=== PATIENT | female | born 1960 | race Caucasian/White ===

== ENCOUNTER → 2016-11-21 | Outpatient (CLI) | payer MEDICARE ==
[2016-11-21 09:08] VITALS: BP 142/77; PULSE 70; RESP 16; TEMP 97.9; BMI 34.0
--- NOTE | 2016-11-22 11:16 | PN ---
DATE OF SERVICE: 11/21/2016 CHIEF COMPLAINT: Bariatric assessment. HISTORY OF PRESENT ILLNESS: Paula Mandel is a 55-year-old female who has a history of adjustable gastric band. At her height of 5 feet 4 inches, her ideal body weight is 144 pounds. Highest weight was 299 pounds. Today she comes in weighing 198 pounds. In fact, she has gained 13 pounds since her last assessment barely 3 weeks ago. She has maintained a 101-pound weight loss. Percent excess weight loss is 65%. Now she presents for further evaluation and management. PHYSICAL EXAM: VITAL SIGNS: 97.9, 70, 16, 142/77, 5 feet 4 inches, 198 pounds. Body mass index 34.1. GENERAL: Well-developed female no acute distress. ABDOMEN: Well-healed panniculectomy incision. Palpable adjustable gastric band port over the left upper quadrant without tenderness. MUSCULOSKELETAL: No clubbing, cyanosis. HEENT: No sclera icterus. Extraocular movements grossly intact. Moist buccal mucosa. Head is atraumatic, normocephalic. No nasal drainage. NECK: Supple without lymphadenopathy. No JV distention. CHEST: Non-labored respirations and equal bilateral excursions. CARDIOVASCULAR: Regular rate and rhythm. Palpable 2+ radial pulses. NEUROLOGIC: No focal or lateralizing signs. ASSESSMENT: 1. History of adjustable gastric band. 2. Morbid obesity due to excess calories. 3. Body mass index reduced from 51.4 down to 34. 4. Adjustable gastric band adjustment. PLAN: 1. Recommend proceeding with adjustment, as she has already gained 13 pounds in barely 3 weeks. 2. Also recommend decreased intake of milk or liquid calories. PROCEDURE: Adjustment of gastric band. DESCRIPTION: After verbal consent, the patient was laid supine. The port was palpated in the left upper quadrant. Skin was cleansed with ChloraPrep. 1 mL of 2% Xylocaine was used to anesthetize the skin. A 20-gauge Wang needle was used to access the adjustable gastric band port. 0.6 mL of normal saline was adjusted with the patient drinking water. A total of 5.6 mL of fluid is in her band. She was able to tolerate drinking water without severe obstructive symptoms. Recommended followup in approximately 3 to 4 weeks. [facility]
== END | disposition home or self-care (01) ==
LOC: BARWHC3 07:51
PROVIDERS: ATTEND Surgery Plastic and Reconstructive Surgery
DX: Z48.815 Encounter for surgical aftercare following surgery on the digestive system (principal); E66.01 Morbid (severe) obesity due to excess calories; Z68.34 Body mass index [BMI] 34.0-34.9, adult; Z98.84 Bariatric surgery status
CPT/HCPCS: 99212

== ENCOUNTER → 2016-12-12 | Outpatient (CLI) | payer MEDICARE ==
[2016-12-12 09:32] VITALS: BP 119/72; PULSE 61; RESP 20; TEMP 97.5; BMI 33.7
--- NOTE | 2016-12-15 18:17 | P.PN ---
Progress Note - Text DATE OF SERVICE: 12/12/2016 CHIEF COMPLAINT: Bariatric assessment. HISTORY OF PRESENT ILLNESS: Paula Mandel is a 56-year-old female who is actually status post panniculectomy from 09/18/2016. She is less than 3 months out. Separately, she has a history of adjustable gastric band placement over 10+ years ago. At her height of 5 feet 4 inches, her ideal body weight is 144 pounds. Her highest weight was 299 pounds. Today she comes in weighing 196 pounds. She has maintained a 103-pound weight loss. Percent excess loss is 66%. Since her last evaluation barely 2 going on 3 weeks ago, she has lost only 2 pounds. Body mass index reduced from 51.4 down to 33.8. Now she presents for further evaluation and management. She reports increased appetite in less than 2 hours as well. PHYSICAL EXAM: VITAL SIGNS: 97.5, 61, 20, 119/72; 5 feet 4 inches, 196 pounds. Body mass index of 33.8. ABDOMEN: Well-healed panniculectomy incision. No erythema along the left upper quadrant. Palpable port along the left abdomen. GENERAL: Well-developed female no acute distress. MUSCULOSKELETAL: No clubbing, cyanosis. HEENT: No sclera icterus. Extraocular movements grossly intact. Moist buccal mucosa. Head is atraumatic, normocephalic. No nasal drainage. NECK: Supple without lymphadenopathy. No JV distention. CHEST: Non-labored respirations and equal bilateral excursions. CARDIOVASCULAR: Regular rate and rhythm. Palpable 2+ radial pulses. NEUROLOGIC: No focal or lateralizing signs. ASSESSMENT: 1. Morbid obesity due to excess calories. 2. Body mass index reduced and 51.4 down to 33.8. 3. Overweight. 4. Adjustment of gastric band. 5. Dietary surveillance and counseling. PLAN: 1. Recommend adjustment. 2. Recommend goal protein intake of over 65 g daily. PROCEDURE: Adjustment of gastric band. DESCRIPTION: After verbal consent was obtained, the patient was placed supine. The port was palpated and the skin was cleansed using ChloraPrep. 1 mL of 1% lidocaine was used to anesthetize the skin. Using a 22-gauge non-coring Wang needle, 0.4 mL of normal saline was placed. She was able to drink water without moderate obstructive symptoms. Total fluid in her band is 6 mL. Recommend followup in approximately 3 to 4 weeks.
== END | disposition home or self-care (01) ==
LOC: BARWHC3 07:23
PROVIDERS: ATTEND Surgery Plastic and Reconstructive Surgery
DX: Z48.815 Encounter for surgical aftercare following surgery on the digestive system (principal); Z98.84 Bariatric surgery status; E66.01 Morbid (severe) obesity due to excess calories; Z68.33 Body mass index [BMI] 33.0-33.9, adult
CPT/HCPCS: 99212

== ENCOUNTER → 2017-02-12 | Outpatient (CLI) | payer MEDICARE ==
[2017-02-12 13:10] VITALS: BMI 34.9
[2017-02-12 13:16] VITALS: BP 139/98; PULSE 88; TEMP 98.2
[2017-02-12 14:30] LABS: Partial Thromboplastin Time 22.4 sec (22.0-30.0); Prothrombin Time 9.8 sec (9.0-12.0)
[2017-02-12 14:35] LABS: CH 30.2; CHCM 31.5; HCT 46.3 % (34.0-46.0); HDW 2.13; HGB 14.7 gm/dL (11.4-16.0); MCH 30.6 pg (25.0-35.0); MCHC 31.8 g/dL (31.0-37.0); MCV 96.3 fL (80.0-100.0); Mean Platelet Volume 7.3; RBC 4.81 m/uL (3.80-5.40); RDW 14.5 % (11.5-15.5); WBC 9.1 k/uL (3.8-10.6)
[2017-02-12 14:43] LABS: ALT 24 U/L (9-52); AST 22 U/L (14-36); Alkaline Phosphatase 96 U/L (38-126); Anion Gap 8 mmol/L; Blood Urea Nitrogen 17 mg/dL (7-17); Calcium 9.7 mg/dL (8.4-10.2); Carbon Dioxide 29 mmol/L (22-30); Chloride 105 mmol/L (98-107); Cholesterol 301 mg/dL (<200); Glucose 72 mg/dL (74-99); HDL Cholesterol 94 mg/dL (40-60); Iron 79 ug/dL (37-170); Non-African American GFR(MDRD) >60 (>60 ml/min/1.73 sqM); Phosphorous 4.4 mg/dL (2.5-4.5); Potassium 4.3 mmol/L (3.5-5.1); Sodium 142 mmol/L (137-145); Total Bilirubin 0.5 mg/dL (0.2-1.3); Total Protein 7.6 g/dL (6.3-8.2); Triglycerides 204 mg/dL (<150)
[2017-02-12 14:53] LABS: % Iron Saturation 23.4 % (20-50); Prealbumin 38 mg/dL (18-36); Total Iron Binding Capacity 337 ug/dL (265-497)
[2017-02-12 15:47] LABS: Vitamin B12 626 pg/mL (239-931)
[2017-02-12 19:04] LABS: Hemoglobin A1C 5.6 % (4.2-6.1)
[2017-02-19 12:48] LABS: Selenium 162 mcg/L (63-160)
--- NOTE | 2017-03-10 18:31 | P.PN ---
Progress Note - Text DATE OF SERVICE: 02/12/2017. CHIEF COMPLAINT: Follow-up adjustable gastric band. HISTORY OF PRESENT ILLNESS: Paula Mandel is a 56 -year-old female who initially had adjustable gastric band over 10+ years ago. She was initially successful losing upwards of 100 pounds and then she regained 150 pounds to 299 pounds for her 5 foot 4 inch frame. Her ideal body weight is 144 pounds. She is recently status post panniculectomy on 09/18/16 where more than 5 pounds of skin was removed. Her last evaluation was 2 months ago. Now she comes with moderate weight regain. At her height of 5 foot 4 inches, she comes in today weighing 203 pounds. She has gained 7 pounds in the past 2 months. Total weight loss is now 96 pounds. She has achieved, 62% excess weight loss. Body mass reduced is from 51.4 down to 34.9. She is still 59 pounds overweight. She comes in with moderate concern with her weight gain. She had her last adjustment about 2 months ago. She reports increased appetite. Now she presents for further evaluation and management. PAST MEDICAL HISTORY: 1. Morbid obesity. 2. Osteoarthritis. 3. Chronic back pain. 4. Deep venous thrombosis. 5. Asthma. 6. Narcolepsy. 7. Hypertension. 8. Panniculitis. PAST SURGICAL HISTORY: 1. Adjustable gastric band multiple revisions. 2. Hysterectomy. 3. Bladder suspension. 4. . 5. Upper endoscopy. 6. Panniculectomy. MEDICATIONS: 1. [place]. 2. Lactulose. ALLERGIES: Denies. SOCIAL HISTORY: She has now discontinued all tobacco use. FAMILY HISTORY: Morbid obesity. REVIEW OF SYSTEMS: CONSTITUTIONAL: Highest weight of 299 pounds. Her lowest weight of 172 pounds. She has gained 30 pounds in the past year. Percent excess weight loss is now 62%. She is 59 pounds overweight. She has maintained a 96 pound weight loss. Body mass index is reduced from 51.4 down to 34.9. Total BMI point reduction is 15.5. GASTROINTESTINAL: Has chronic constipation. No reports of gastroesophageal reflux disease at this time. MUSCULOSKELETAL: Has diffuse severe lower back pain including joint pain along the hips and knees. HEENT: Wears glasses. Denies dysphagia. ENDOCRINE: No reports of thyroid disorder or blood sugar glucose intolerance. RESPIRATORY: Denies any obstructive sleep apnea. No reports of pneumonia. CARDIOVASCULAR: Prior history of heart catheterization including prior history of chest pain. NEURO: No reports of headaches or seizure disorders. Does have chronic pain. PSYCH: No reports of depression. Denies any suicidal ideation. HEMATOLOGIC: Prior history of DVTs. PHYSICAL EXAM: VITAL SIGNS: 98.2, 88, 129/98, 16; 5 feet 4 inches, 203 pounds. Body mass index 34.9. ABDOMEN: Soft, nontender, nondistended. Well-healed incision from previous panniculectomy. Abdomen is flat. Port palpated along the left upper quadrant without cellulitis or infection. GENERAL: Well-developed, pleasant female in no acute distress. MUSCULOSKELETAL: No clubbing, cyanosis, or edema. pounds. HEENT: No sclera icterus. Extraocular movements grossly intact. Moist buccal mucosa. Head is atraumatic, normocephalic. No nasal drainage. NECK: Supple without lymphadenopathy. No JV distention. CHEST: Non-labored respirations and equal bilateral excursions. CARDIOVASCULAR: Regular rate and rhythm. Palpable 2+ radial pulses. NEUROLOGIC: No focal or lateralizing signs. ASSESSMENT: 1. Morbid obesity due to excess calories. 2. Body mass index reduced from 51.4 down to 34.9. 3. History of adjustable gastric band. 4. Panniculitis, resolved. 5. Status post massive weight loss of 96 pounds. 6. Osteoarthritis of the lower back and hips. 7. History of chronic pain syndrome 8. Weight regain following bariatric procedure. PLAN: 1. With her weight gain of 30 pounds over the last 8 months, I have discussed with her metabolic cause including troubles with her band or port can be evaluated. 2. Recommend a band adjustment. 3. As she can barely tolerate additional adjustments around 6 mL, then may investigate other options. 4. In the past she has had previous complications with her band including two revisions of the band itself separately from her port. 5. She does report history of gastroesophageal reflux disease for which will evaluate with an upper GI. PROCEDURE: Adjustment of gastric band. DESCRIPTION: After verbal consent, the patient was placed supine. Port was palpated in the left upper quadrant. The skin was cleansed with alcohol swab. 1 mL of 1% lidocaine was used to anesthetize the skin. 22-gauge non-core Wang needle was used to access the port. Initially 6 mL was supposed to be in the band, however 4 mL was identified. Findings consistent with either port malfunction. With findings of 2 mL fluid loss in the last 2 months this demonstrates her port malfunction. May benefit from port revision; however, given the previous intolerance of her band, she is evaluating for a revision to a Daniel-en-Y gastric bypass. Otherwise, recommend nutritional evaluation. ADDENDUM: Hematocrit was elevated at 46.3. Glucose was low at 72. Hemoglobin A1c was normal at 5.6. Prealbumin was high at 38, triglycerides, elevated at 204. Cholesterol elevated at 301, LDL elevated at 166, HDL elevated at 94. Vitamin D low at 15.6. Overall, no hypothyroidism identified, or significant protein malnutrition.
== END | disposition home or self-care (01) ==
LOC: BARWHC3 12:14
PROVIDERS: ATTEND Surgery Plastic and Reconstructive Surgery
DX: Z48.815 Encounter for surgical aftercare following surgery on the digestive system (principal); E66.01 Morbid (severe) obesity due to excess calories; Z68.34 Body mass index [BMI] 34.0-34.9, adult; E21.1 Secondary hyperparathyroidism, not elsewhere classified; E89.1 Postprocedural hypoinsulinemia; D50.8 Other iron deficiency anemias; E44.0 Moderate protein-calorie malnutrition; E55.9 Vitamin D deficiency, unspecified; K74.1 Hepatic sclerosis; N19 Unspecified kidney failure; K50.90 Crohn's disease, unspecified, without complications; Z98.84 Bariatric surgery status; Z79.899 Other long term (current) drug therapy; M47.896 Other spondylosis, lumbar region; M16.0 Bilateral primary osteoarthritis of hip; G89.4 Chronic pain syndrome; K21.9 Gastro-esophageal reflux disease without esophagitis
CPT/HCPCS: 84255; 84134; 84425; 80061; 80053; 82607; 82728; 83036; 82525; 82746; 83540; 83550; 83735; 84100; 84443; 84590; 84630; 85027; 85610; 85730; 82306; 83970; 36415; G0463; 99212

== ENCOUNTER → 2017-04-24 | Outpatient (CLI) | payer MEDICARE ==
[2017-04-24 09:52] VITALS: BP 126/76; PULSE 67; RESP 20; TEMP 97.1; BMI 37.4
--- NOTE | 2017-05-07 16:48 | P.PN ---
Progress Note - Text DATE OF SERVICE: 04/24/2017. CHIEF COMPLAINT: Follow-up adjustable gastric band. HISTORY OF PRESENT ILLNESS: Paula Mandel is a 56 -year-old female who initially had an adjustable gastric band over 10+ years ago. She's had initial success with her adjustable gastric band losing over 100+ pounds. She had gotten down to 150 pounds with the adjustable gastric band however she overshot and regained over 100+ pounds to 299 pounds. After careful intensive dietary surveillance and counseling, she was able to lose weight and get down to 178 pounds. At this point, she is unable to tolerate any further adjustments as she develops esophageal dysphagia. She is now regaining weight. She has been able to lose weight from 299 pounds down to 178 pounds. In the past 8+ months, she's now regained 40 pounds. Now she comes in with problems with her adjustable gastric band. Given the multiple revisions of her adjustable gastric band, she is seeking revisional surgery toward the gastric bypass. She has stopped smoking over one year ago. Her highest weight was 299 pounds for her 5 foot 4 inch frame. Her ideal body weight is 144 pounds. She has maintained 81 pound weight loss. Percent excess weight loss is 52%. She is 74 pounds overweight. Body mass index is reduced from 51.4 down to 37.4. PAST MEDICAL HISTORY: 1. Morbid obesity. 2. Osteoarthritis. 3. Chronic back pain. 4. Deep venous thrombosis. 5. Asthma. 6. Narcolepsy. 7. Hypertension. PAST SURGICAL HISTORY: 1. Adjustable gastric band multiple revisions. 2. Hysterectomy. 3. Bladder suspension. 4. . 5. Upper endoscopy. 6. Panniculectomy. MEDICATIONS: 1. [place]. ALLERGIES: Denies. SOCIAL HISTORY: She has now discontinued all tobacco use. FAMILY HISTORY: Morbid obesity. REVIEW OF SYSTEMS: CONSTITUTIONAL: Her highest weight was 299 pounds for her 5 foot 4 inch frame. Her ideal body weight is 144 pounds. She has maintained 81 pound weight loss. Percent excess weight loss is 52%. She is 74 pounds overweight. Body mass index is reduced from 51.4 down to 37.4. GASTROINTESTINAL: Has chronic constipation. Has gastroesophageal reflux disease. Has history of esophageal dysmotility with adjustable gastric band. MUSCULOSKELETAL: Has diffuse severe lower back pain including joint pain along the hips and knees. HEENT: Has hearing problems. No problems with vision. ENDOCRINE: No reports of thyroid disorder or blood sugar glucose intolerance. RESPIRATORY: Denies any obstructive sleep apnea. No reports of pneumonia. CARDIOVASCULAR: Prior history of heart catheterization including prior history of chest pain. NEURO: No reports of headaches or seizure disorders. Does have chronic pain. PSYCH: No reports of depression. Denies any suicidal ideation. HEMATOLOGIC: Prior history of DVTs. PHYSICAL EXAM: VITAL SIGNS: 5 feet 4 inches, 217 pounds. Body mass index 37.4. Vital Signs Temp 97.1 F L 04/24/17 09:08 Pulse 67 04/24/17 09:08 Resp 20 04/24/17 09:08 BP 126/76 04/24/17 09:08 Pulse Ox ABDOMEN: Soft, nontender, nondistended. GENERAL: Well-developed, pleasant female in no acute distress. MUSCULOSKELETAL: No clubbing, cyanosis, or edema. pounds. HEENT: No sclera icterus. Extraocular movements grossly intact. Moist buccal mucosa. Head is atraumatic, normocephalic. No nasal drainage. NECK: Supple without lymphadenopathy. No JV distention. CHEST: Non-labored respirations and equal bilateral excursions. CARDIOVASCULAR: Regular rate and rhythm. Palpable 2+ radial pulses. NEUROLOGIC: No focal or lateralizing signs. LABS: Hematocrit was elevated at 46.3. Glucose was low at 72. Hemoglobin A1c was normal at 5.6. Prealbumin was high at 38, triglycerides, elevated at 204. Cholesterol elevated at 301, LDL elevated at 166, HDL elevated at 94. Vitamin D low at 15.6. ASSESSMENT: 1. Morbid obesity due to excess calories. 2. Body mass index reduced from 51.4 down to 37.4. 3. History of adjustable gastric band. 4. Panniculitis, resolved. 5. Status post massive weight loss of 81 pounds. 6. Osteoarthritis of the lower back and hips. 7. History of chronic pain syndrome 8. Weight regain following bariatric procedure. 9. Complications from adjustable gastric band. 10. Vitamin D deficiency. PLAN: 1. Recommend adjustment of gastric band. 2. In the interim, recommend referral to bariatric dietitian on gastrectomy diets. 3. We had a long discussion regarding risks to a revision to a gastric bypass. She had stopped smoking which should improve her risk for leaks or complications. Separately, she's had a recent panniculectomy. 4. She is at increased risk for leaks including stricture as well as complications from her surgery as she's had more than 2-3 revisions of an adjustable gastric band now being revised to a gastric bypass. 5. Recommend at minimum 2 week high-protein low caloric diet. 6. To mitigate her risks of competition gastric bypass, recommend two-stage approach with regards to removal of adjustable gastric band. 7. Recommend start of multivitamins. PROCEDURE: Adjustment of gastric band. DESCRIPTION: After verbal consent, the patient was placed supine. Port was palpated in the left upper quadrant. The skin was cleansed with alcohol swab. 1 mL of 1% lidocaine was used to anesthetize the skin. 22-gauge non-core Wang needle was used to access the port. Initially 4 mL was supposed to be in the band, however 3.6 mL was identified. Findings consistent with port malfunction.
== END | disposition home or self-care (01) ==
LOC: BARWHC3 08:07
PROVIDERS: ATTEND Surgery Plastic and Reconstructive Surgery
DX: E66.01 Morbid (severe) obesity due to excess calories (principal); K95.09 Other complications of gastric band procedure; M47.816 Spondylosis without myelopathy or radiculopathy, lumbar region; M16.0 Bilateral primary osteoarthritis of hip; E55.9 Vitamin D deficiency, unspecified; I10 Essential (primary) hypertension; Z68.37 Body mass index [BMI] 37.0-37.9, adult; Z98.84 Bariatric surgery status; Z79.899 Other long term (current) drug therapy
CPT/HCPCS: 99211

== ENCOUNTER → 2017-05-12 | Outpatient (CLI) | payer MEDICARE ==
[2017-05-12 16:44] VITALS: BMI 39.6
== END | disposition home or self-care (01) ==
LOC: BARWHC3 07:49
PROVIDERS: ATTEND Surgery Plastic and Reconstructive Surgery
DX: E66.01 Morbid (severe) obesity due to excess calories (principal)
CPT/HCPCS: 97804

== ENCOUNTER → 2017-05-30 | Outpatient (CLI) | payer MEDICARE ==
[2017-05-30 14:57] LABS: CH 31.4; CHCM 32.9; HCT 45.3 % (34.0-46.0); HDW 2.25; HGB 15.4 gm/dL (11.4-16.0); MCH 32.5 pg (25.0-35.0); MCV 95.7 fL (80.0-100.0); RBC 4.74 m/uL (3.80-5.40); RDW 13.8 % (11.5-15.5); WBC 8.6 k/uL (3.8-10.6)
[2017-05-30 15:07] LABS: Potassium 4.8 mmol/L (3.5-5.1)
== END | disposition home or self-care (01) ==
LOC: LABPAT 14:08
PROVIDERS: ATTEND Anesthesiology
DX: Z01.812 Encounter for preprocedural laboratory examination (principal)
CPT/HCPCS: 80051; 85027

== ENCOUNTER → 2017-06-04 | Outpatient (CLI) | payer MEDICARE ==
[2017-06-04 15:26] LABS: Basophils # (A) 0.1 k/uL (0-0.2); Basophils % (A) 1 %; CH 31.7; CHCM 32.9; Eosinophils # (A) 0.3 k/uL (0-0.7); Eosinophils % (A) 3 %; HCT 50.5 % (34.0-46.0); HDW 2.28; Luc # (Auto) 0.21; Luc % (Auto) 2; Lymphocytes # (A) 2.5 k/uL (1.0-4.8); Lymphocytes % (A) 29 %; MCH 30.7 pg (25.0-35.0); MCHC 31.7 g/dL (31.0-37.0); MCV 96.7 fL (80.0-100.0); Mean Platelet Volume 8.9; Monocytes # (A) 0.4 k/uL (0-1.0); Monocytes % (A) 5 %; Neutrophils # (A) 5.1 k/uL (1.3-7.7); Neutrophils % (A) 59 %; RBC 5.22 m/uL (3.80-5.40); RDW 13.9 % (11.5-15.5); WBC 8.6 k/uL (3.8-10.6); WBC (Perox) 8.69
[2017-06-04 15:48] LABS: ALT 41 U/L (9-52); AST 29 U/L (14-36); Alkaline Phosphatase 105 U/L (38-126); Anion Gap 9 mmol/L; Blood Urea Nitrogen 20 mg/dL (7-17); Calcium 10.1 mg/dL (8.4-10.2); Carbon Dioxide 25 mmol/L (22-30); Chloride 106 mmol/L (98-107); Glucose 82 mg/dL (74-99); Non-African American GFR(MDRD) >60 (>60 ml/min/1.73 sqM); Potassium 4.4 mmol/L (3.5-5.1); Sodium 140 mmol/L (137-145); Total Bilirubin 0.4 mg/dL (0.2-1.3); Total Protein 7.8 g/dL (6.3-8.2)
== END | disposition home or self-care (01) ==
LOC: LABPAT 14:57
PROVIDERS: ATTEND Surgery Plastic and Reconstructive Surgery
DX: Z01.812 Encounter for preprocedural laboratory examination (principal)
CPT/HCPCS: 80053; 85025

== ENCOUNTER 2017-06-06 09:35 | Inpatient (IN) | payer MEDICARE ==
--- NOTE | 2017-06-06 08:12 | P.GSHP ---
History of Present Illness H&P Date: 06/06/17 CHIEF COMPLAINT: Complications from adjustable gastric band HISTORY OF PRESENT ILLNESS: Paula Mandel is a 56 -year-old female who initially had an adjustable gastric band over 10+ years ago. She's had initial success with her adjustable gastric band losing over 100+ pounds. She had gotten down to 150 pounds with the adjustable gastric band however regained over 100+ pounds to 299 pounds. After careful intensive dietary surveillance and counseling, she was able to lose weight and get down to 178 pounds. At this point, she is unable to tolerate any further adjustments as she develops esophageal dysphagia. She is now regaining weight. She has been able to lose weight from 299 pounds down to 178 pounds. In the past 10+ months, she's now regained 52 pounds. Now she comes in with problems with her adjustable gastric band. Given the multiple revisions of her adjustable gastric band, she is seeking revisional surgery toward the gastric bypass. She has stopped smoking over one year ago. Her highest weight was 299 pounds for her 5 foot 4 inch frame. Her ideal body weight is 144 pounds. She has maintained 69 pound weight loss. She is 62 pounds overweight. Body mass index is reduced from 51.4 down to 39.5. PAST MEDICAL HISTORY: 1. Morbid obesity. 2. Osteoarthritis. 3. Chronic back pain. 4. Deep venous thrombosis. 5. Asthma. 6. Narcolepsy. 7. Hypertension. PAST SURGICAL HISTORY: 1. Adjustable gastric band multiple revisions. 2. Hysterectomy. 3. Bladder suspension. 4. . 5. Upper endoscopy. 6. Panniculectomy. MEDICATIONS: 1. [place]. ALLERGIES: Denies. SOCIAL HISTORY: She has now discontinued all tobacco use. FAMILY HISTORY: Morbid obesity. REVIEW OF SYSTEMS: CONSTITUTIONAL: Her highest weight was 299 pounds for her 5 foot 4 inch frame. Her ideal body weight is 144 pounds. She has maintained 69 pound weight loss. She is 62 pounds overweight. Body mass index is reduced from 51.4 down to 39.5 GASTROINTESTINAL: Has chronic constipation. Has gastroesophageal reflux disease. Has history of esophageal dysmotility with adjustable gastric band. MUSCULOSKELETAL: Has diffuse severe lower back pain including joint pain along the hips and knees. HEENT: Has hearing problems. No problems with vision. ENDOCRINE: No reports of thyroid disorder or blood sugar glucose intolerance. RESPIRATORY: Denies any obstructive sleep apnea. No reports of pneumonia. CARDIOVASCULAR: Prior history of heart catheterization including prior history of chest pain. NEURO: No reports of headaches or seizure disorders. Does have chronic pain. PSYCH: No reports of depression. Denies any suicidal ideation. HEMATOLOGIC: Prior history of DVTs. PHYSICAL EXAM: VITAL SIGNS: 5 feet 4 inches, 230 pounds. Body mass index 39.5. ABDOMEN: Soft, nontender, nondistended. GENERAL: Well-developed, pleasant female in no acute distress. MUSCULOSKELETAL: No clubbing, cyanosis, or edema. pounds. HEENT: No sclera icterus. Extraocular movements grossly intact. Moist buccal mucosa. Head is atraumatic, normocephalic. No nasal drainage. NECK: Supple without lymphadenopathy. No JV distention. CHEST: Non-labored respirations and equal bilateral excursions. CARDIOVASCULAR: Regular rate and rhythm. Palpable 2+ radial pulses. NEUROLOGIC: No focal or lateralizing signs. ASSESSMENT: 1. Morbid obesity due to excess calories. 2. Body mass index reduced from 51.4 down to 39.5 3. History of adjustable gastric band. 4. Panniculitis, resolved. 5. Status post massive weight loss of 81 pounds. 6. Osteoarthritis of the lower back and hips. 7. History of chronic pain syndrome 8. Weight regain following bariatric procedure. 9. Complications from adjustable gastric band. 10. Vitamin D deficiency. PLAN: 1. Recommend removal of gastric band. 2. In the interim, recommend referral to bariatric dietitian on gastrectomy diets. 3. We had a long discussion regarding risks to a revision to a gastric bypass. She had stopped smoking which should improve her risk for leaks or complications. Separately, she's had a recent panniculectomy. 4. She is at increased risk for leaks including stricture as well as complications from her surgery as she's had more than 2-3 revisions of an adjustable gastric band now being revised to a gastric bypass. 5. Possibility of two-stage technique was carefully described pending intraoperative assessment. 6. DVT prophylaxis. 7. Antibiotic prophylaxis. Past Medical History Past Medical History: Asthma, Chest Pain / Angina, COPD, Deep Vein Thrombosis ( DVT), GERD/Reflux, Hearing Disorder / Deafness, Hyperlipidemia, Osteoarthritis ( OA), Pneumonia, Pulmonary Embolus (PE), Respiratory Disorder Additional Past Medical History / Comment(s): Chronic Bronchitis. NARCOLEPSY. "NERVE DAMAGE BACK DOWN TO KNEES, FALLS OCC," CHRONIC BACK PAIN. [place], MULTIPLE HX DVT, PE, TOGIAK bilaterally. severe constipation History of Any Multi-Drug Resistant Organisms: None Reported Past Surgical History: Bariatric Surgery, Bladder Surgery, Section, Cholecystectomy, Hysterectomy, Orthopedic Surgery Additional Past Surgical History / Comment(s): 09/18/16 Panniculectomy, repair incarcerated ventral hernia, adjustment lap band, port revision. Other surgical hx: 2007 Lap Band; ORIF RT Ankle- PLATE, SCREWS. Past Anesthesia/Blood Transfusion Reactions: No Reported Reaction Smoking Status: Former smoker - Past Family History Father History Unknown: Yes Family Medical History: Cancer Mother History Unknown: Yes Family Medical History: Cancer, Congestive Heart Failure (CHF), COPD Medications and Allergies Home Medications Medication Instructions Recorded Confirmed Type HYDROcodone/APAP 10-325MG [[place] 1 tab PO Q6H PRN 05/30/17 05/30/17 History 10-325] Allergies Allergy/AdvReac Type Severity Reaction Status Date / Time No Known Allergies Allergy Verified 05/30/17 14:11
[~2017-06-06 09:35] MED LIST: ACETAMINOPHEN IV (For NPO) 1,000 MG in EMPTY BAG 1 BAG IVPB ONE; AMPICILLIN-SULBACTAM 3 GM in SODIUM CHLORIDE 0.9% 100 ML IVPB ONE; CHLORHEXIDINE GLUCONATE 15 ML CUP MUCOUS MEM ONE; DEXAMETHASONE SOD PHOSPHATE 10 MG/ML 1 ML VIAL IV ONE; ENOXAPARIN 40 MG/0.4 ML SYRINGE SQ STA; LIDOCAINE 1% 20 ML VIAL (10MG/ML) FOR IV START INTRADERMA PRN; ONDANSETRON 4 MG/2 ML VIAL IVP ONE; PANTOPRAZOLE 40 MG/10 ML VIAL IV STA; SCOPOLAMINE 1.5MG/72HR PATCH TRANSDERM ONE; ceFAZolin 2 GM in SODIUM CHLORIDE 0.9% 100 ML IVPB ONE
[2017-06-06] MEDS ORDERED: LACTATED RINGERS 1,000 ML IV ONE ×2 (13:08→16:22)
[2017-06-06] MEDS: LACTATED RINGERS 1,000 ML IV SCH ×2 (15:04→15:06)
[2017-06-06] MEDS ORDERED: SUCCINYLCHOLINE CHLORIDE 100 MG/5 ML SYR IV ONE (15:06)
[2017-06-06] MEDS ORDERED: ROCURONIUM BROMIDE 10 MG/ML 10 ML VIAL IV ONE (15:06)
[2017-06-06] MEDS ORDERED: LIDOCAINE 1% INJ 10MG/ML (20 ML MDV) ONE (15:06)
[2017-06-06] MEDS ORDERED: MEPERIDINE 50 MG/ML SYRINGE ONE (15:06)
[2017-06-06] MEDS ORDERED: NEOSTIGMINE 1 MG/ML 10 ML VIAL ONE (15:06)
[2017-06-06] MEDS ORDERED: PROPOFOL 10 MG/ML 20 ML VIAL IV ONE (15:06)
[2017-06-06] MEDS ORDERED: MIDAZOLAM 2 MG/2 ML VIAL ONE (15:06)
[2017-06-06] MEDS ORDERED: GLYCOPYRROLATE 0.2 MG/ML 2 ML VIAL ONE (15:06)
[2017-06-06] MEDS ORDERED: ONDANSETRON 4 MG/2 ML VIAL ONE (15:06)
[2017-06-06] MEDS ORDERED: fentaNYL (PF) 50 MCG/ML 2 ML AMP ONE (15:06)
[2017-06-06] MEDS ORDERED: BUPIVACAINE (PF) 0.5% 30 ML VIAL SQ ONE ×2 (16:19)
[2017-06-06] MEDS ORDERED: NALOXONE 0.4 MG/ML 1 ML VIAL IV PRN (18:37)
[2017-06-06] MEDS ORDERED: HYDROcodone/APAP 15 ML SOLUTION PO PRN (18:37)
--- NOTE | 2017-06-06 18:37 | P.PCN ---
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 greater omentum to the anterior abdominal wall involving all quadrants and epigastrium including midline lower pelvis Procedure(s) Performed: Laparoscopic extensive lysis of adhesions over 2 hours greater omentum to anterior abdominal wall of the lower pelvis, midline, right upper quadrant, left upper quadrant and epigastrium; laparoscopic removal of adjustable gastric band and all components; intraoperative esophagogastroduodenoscopy Implants: Anesthesia: SIDNEY Surgeon: Stella Acosta Estimated Blood Loss (ml): 75 Pathology: none sent Condition: stable Disposition: floor Indications for Procedure: 1. Malignant severe peritoneal adhesions throughout the entire abdomen prohibiting Daniel-en-Y gastric bypass or robotic approach. 2. Extensive laparoscopic lysis of adhesions over 2 hours performed greater omentum to the anterior abdominal wall throughout all quadrants without enterotomies. 3. Gastritis identified without injury to the proximal stomach. 4. Dense scarring from adjustable gastric band to proximal stomach with hiatal hernia identified Operative Findings: Description of Procedure:
[2017-06-06] MEDS: HYDROmorphone 1 MG/ML 1 ML SYRINGE IVP PRN ×3 (19:08→23:10)
--- NOTE | 2017-06-06 20:42 | P.PN ---
Progress Note - Text Patient seen and evaluated. She is extremely tearful and upset as her surgery was curtailed by the extensive and severe adhesions prohibiting gastric bypass. Information was also described to the patient's daughter who demonstrated understanding. The patient also disclosed to the recovery room nurse that she was smoking. The patient is aware that smoking is as absolutely prohibited prior to her gastric bypass as well. Given the severity and extent of her adhesions, she will need 1 to 3 months for complete recovery given the severity of adhesions. I was at bedside for over 30+ minutes regarding care plan which was also previously described to the patient this morning of surgery including preoperatively as well.
[2017-06-06] MEDS ORDERED: ACETAMINOPHEN IV (For NPO) 1,000 MG in EMPTY BAG 1 BAG IVPB ONE (21:00)
[2017-06-06] MEDS: 0.9% NACL WITH KCL 20 MEQ/L 1,000 ML IV SCH (23:10)
[2017-06-07] MEDS: AMPICILLIN-SULBACTAM 3 GM in SODIUM CHLORIDE 0.9% 100 ML IVPB SCH ×2 (00:03→10:02)
[2017-06-07] MEDS: HYDROmorphone 1 MG/ML 1 ML SYRINGE IVP PRN ×2 (02:42→07:50)
[2017-06-07] MEDS: LACTATED RINGERS 1,000 ML IV SCH ×2 (02:45→06:27)
[2017-06-07 07:45] LABS: Basophils # (A) 0.1 k/uL (0-0.2); Basophils % (A) 1 %; CH 31.4; CHCM 32.2; Eosinophils # (A) 0.1 k/uL (0-0.7); Eosinophils % (A) 1 %; HCT 42.1 % (34.0-46.0); HDW 2.27; HGB 13.1 gm/dL (11.4-16.0); Luc % (Auto) 2; Lymphocytes % (A) 20 %; MCH 30.5 pg (25.0-35.0); MCV 98.2 fL (80.0-100.0); Mean Platelet Volume 8.8; Monocytes # (A) 0.7 k/uL (0-1.0); Monocytes % (A) 7 %; Neutrophils # (A) 6.9 k/uL (1.3-7.7); Neutrophils % (A) 68 %; RBC 4.29 m/uL (3.80-5.40); RDW 13.4 % (11.5-15.5); WBC 10.1 k/uL (3.8-10.6); WBC (Perox) 10.73
[2017-06-07] MEDS: SIMETHICONE 40 MG/0.6 ML DROPS 2,000 MG/30 ML BOTTLE PO SCH ×2 (08:09→10:08)
[2017-06-07] MEDS: HYOSCYAMINE ORAL DROPS 1.875 MG/15 ML BOTTLE PO SCH ×2 (08:09→10:06)
[2017-06-07] MEDS: 0.9% NACL WITH KCL 20 MEQ/L 1,000 ML IV SCH (08:09)
[2017-06-07 08:14] LABS: Anion Gap 5 mmol/L; Blood Urea Nitrogen 15 mg/dL (7-17); Calcium 8.7 mg/dL (8.4-10.2); Carbon Dioxide 26 mmol/L (22-30); Chloride 112 mmol/L (98-107); Magnesium 1.8 mg/dL (1.6-2.3); Non-African American GFR(MDRD) >60 (>60 ml/min/1.73 sqM); Phosphorous 3.2 mg/dL (2.5-4.5); Potassium 4.5 mmol/L (3.5-5.1); Sodium 143 mmol/L (137-145)
[2017-06-07] MEDS ORDERED: PANTOPRAZOLE 40 MG/10 ML VIAL IV SCH (09:00)
[2017-06-07] MEDS ORDERED: ENOXAPARIN 40 MG/0.4 ML SYRINGE SQ SCH (09:00)
[2017-06-07 11:10] VITALS: BP 98/53; PULSE 80; RESP 12; TEMP 98.4
--- NOTE | 2017-06-07 11:18 | P.PN ---
Progress Note - Text Patient seen and evaluated. No reports of abdominal pain. No reports of dysphagia. I had an extended conversation over 30 minutes regarding the findings of her surgery including severe adhesions. I have recommended continued high protein low caloric diet to sustain her weight loss. Patient had been tearful as she is experiencing personal stressors at home and she had restarted smoking. After addressing her concerns, patient felt much more secured and comfortable with care plan which includes reassessment in the bariatric office next week. Patient is agreeable with discharge today with follow-up at the bariatric center next week. Dressing to be discontinued in the office.
[2017-06-07 11:37] VITALS: BMI 37.3
--- NOTE | 2017-06-08 19:45 | P.PN ---
Subjective Principal diagnosis: Morbid obesity The patient is postoperative day #1 status post extensive lysis of adhesions over 2 hours. No reports of abdominal pain. No reports of dysphagia. She is ambulating without difficulty. Objective - Vital Signs Vital signs: Vital Signs Temp 98.4 F 06/07/17 07:00 Pulse 80 06/07/17 07:00 Resp 12 06/07/17 07:00 BP 98/53 06/07/17 07:00 Pulse Ox 93 L 06/07/17 07:00 Intake & Output 06/06/17 06/07/17 06/07/17 18:59 06:59 18:59 Intake Total 2100 850 Output Total 275 Balance 1825 850 Weight 98.475 kg Intake: IV 2100 750 Intake, IV Titration 100 Amount Ampicillin-Sulbactam 3 gm 100 In Sodium Chloride 0.9% 100 ml @ 100 mls/hr IVPB Q6HR [facility] Rx#:[id number] Output: Urine 200 Estimated Blood Loss 75 Other: Voiding Method Toilet - Exam GENERAL: Well developed and in no acute distress. HEENT: No sclera icterus. Extraocular movements grossly intact. Moist buccal mucosa. Head is atraumatic, normocephalic. Hears conversational speech. No nasal drainage. NECK: Supple without lymphadenopathy. CHEST: Non-labored respirations and equal bilateral excursions. CARDIOVASCULAR: Regular rate and rhythm. Palpable 2+ radial pulses. ABDOMEN: Soft, nontender. Nondistended. Incision clean dry and intact. OptiFoam dressing intact at the left upper quadrant. MUSCULOSKELETAL: No clubbing, cyanosis or edema. NEUROLOGIC: No focal or lateralizing signs. PSYCH: Appropriate affect. Alert and oriented to person, place and time. SKIN: Good skin turgor. Will perfused. - Labs CBC & Chem 7: 06/07/17 06:48 06/07/17 06:48 Labs: Abnormal Lab Results - Last 24 Hours (Table) 06/07/17 Range/Units 06:48 Chloride 112 H (98-107) mmol/L Assessment and Plan (1) Peritoneal adhesions Status: Acute (2) Morbid obesity due to excess calories Status: Acute (3) BMI 37.0-37.9, adult Status: Acute Plan: 1. I had an extended conversation over 30 minutes regarding the findings of her surgery including severe adhesions. 2. I have recommended continued high protein low caloric diet to sustain her weight loss. 3. Patient had been tearful as she is experiencing personal stressors at home and she had restarted smoking. After addressing her concerns, patient felt much more secured and comfortable with care plan which includes reassessment in the bariatric office next week. 4. Patient is agreeable with discharge today with follow-up at the bariatric center next week. 5. Dressing to be discontinued in the office.
--- NOTE | 2017-06-08 19:49 | P.DS ---
Providers Date of admission: 06/06/17 09:37 Expected date of discharge: 06/07/17 Attending physician: Stella Acosta Primary care physician: Stated None - Discharge Diagnosis(es) (1) BMI 37.0-37.9, adult Status: Acute (2) Morbid obesity due to excess calories Status: Acute (3) Peritoneal adhesions Status: Acute (4) Tobacco abuse Status: Acute (5) Complication of gastric band procedure Status: Acute (6) History of adjustable gastric banding Status: Chronic Hospital Course: The patient is a 56-year-old female who is status post extensive lysis of adhesions over 2 hours including band removal. She denies abdominal pain. She does port overall disappointment that she had been unable to get a gastric bypass. Postoperatively, she was tolerating diet and ambulating. Pertinent Studies: None. Procedures: 1. Laparoscopic lysis of adhesions over 2+ hours. 2. Laparoscopic removal of adjustable gastric band and all components. 3. Intraoperative esophagogastroduodenoscopy. Patient Condition at Discharge: Good Plan - Discharge Summary New Discharge Prescriptions: New HYDROcodone/APAP 10-325MG [[place] 10] 1 each PO Q6H PRN #15 tab PRN Reason: Pain No Action HYDROcodone/APAP 10-325MG [[place] 10-325] 1 tab PO Q6H PRN PRN Reason: Pain Discharge Medication List HYDROcodone/APAP 10-325MG [[place] 10-325] 1 tab PO Q6H PRN 05/30/17 [History] HYDROcodone/APAP 10-325MG [[place] 10] 1 each PO Q6H PRN #15 tab 06/07/17 [Rx] Follow up Appointment(s)/Referral(s): Stella Acosta MD [STAFF PHYSICIAN] - 06/11/17 2:00 pm (Bariatric Center) Patient Instructions/Handouts: Exploratory Laparoscopy (DC), Lysis of Abdominal Adhesions (DC) Activity/Diet/Wound Care/Special Instructions: Do not remove abdominal dressing. May use hand claw to take a bath. No bath tub soaks. Take protein shakes 2-3 times a day. May have eggs, beings, cottage cheese, cheese, please limit bread, pasta, potatoes as this will cause weight gain. Discharge Disposition: HOME SELF-CARE
--- NOTE | 2017-06-08 23:26 | P.OP ---
Date of Procedure: 06/06/17 Preoperative Diagnosis: Postoperative Diagnosis: Procedure(s) Performed: Implants: Indications for Procedure: Operative Findings: Description of Procedure: SURGEON: BITA NAPIER MD PILE DRIVING SUPERINTENDENT: NATIVIDAD LARIOS PREOPERATIVE DIAGNOSES: 1. Morbid obesity. 2. Body mass index of 37.3. 3. Complications of adjustable gastric band. 4. Chronic pain syndrome. 5. History of tobacco abuse. 6. Hypertension. 7. Osteoarthritis of the lower back. 8. Esophageal dysphagia. POSTOPERATIVE DIAGNOSES: 1. Morbid obesity. 2. Body mass index of 37.3. 3. Complications of adjustable gastric band. 4. Chronic pain syndrome. 5. History of tobacco abuse. 6. Hypertension. 7. Osteoarthritis of the lower back. 8. Esophageal dysphagia. 9. Gastritis 10. 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 Hiatal hernia. 12. Previous history of open cholecystectomy. 13. Previous history of multiple C-sections hysterectomy. 14. Previous history of multiple revision of adjustable gastric band. OPERATION: 1. Diagnostic laparoscopy. 2. Laparoscopic extensive lysis of adhesions over 2 hours greater omentum to anterior abdominal wall of the lower pelvis, midline, right upper quadrant, left upper quadrant and epigastrium 3. Laparoscopic removal of adjustable gastric band and all components 4. Intraoperative esophagogastroduodenoscopy 5. Attempted gastric bypass. ANESTHESIA: General with local anesthetic. ESTIMATED BLOOD LOSS: 75 mL. SPECIMENS REMOVED: None. COMPLICATIONS: None. INDICATIONS: The patient is a 56-year-old female who presents with multiple adjustable gastric band revisions. She could not tolerate any further adjustments. Diagnostic studies are consistent with severe esophageal dysphagia secondary to adjustable gastric band. Now she presents for surgical intervention. She elected for adjustable gastric band removal. Alternatively, as she has chronic morbid obesity ,she elected for additional bariatric procedures. She elected for surgical intervention, particularly Daniel-en-Y gastric bypass. Given her complicated past surgical history, attempted Daniel-en-Y gastric bypass was discussed. Separately, possibility for curtailing her procedure was also discussed given a prior history of multiple band revisions.. Benefits and risks were described. Informed consent was obtained. Please note a second-generation bariatric consent form was reviewed in detail including increased risk for leak as well as stricture. Robotic approach was discussed. DESCRIPTION OF PROCEDURE: The patient had received Peridex oral solution including Lovenox preoperatively. She was brought to the operating room and transferred onto a bed. After general induction, the patient was prepped and draped in the standard sterile fashion including placement of Helton catheter. A timeout protocol was confirmed with surgical team regarding the patient's name including procedure to be performed. The da Jose robot Si was prepped and primed. With her prior history of panniculectomy, a left upper quadrant incision was proposed. Using 0 degree 5 mm laparoscopic trocar entry, the peritoneal cavity was entered after anesthetizing the skin. Diagnostic laparoscopy demonstrated moderate to severe adhesions along the right upper quadrant, epigastrium including ower midline and bilateal lower abdomen. Next, a small window was identified along the left upper quadrant whereby a separate 12 mm trocar was placed along the left costal margin at the anterior axillary line. Next a Kittner was used to gently sweep away the adhesions that were found along the epigastrium. Once the adhesions along the epigastrium were carefully taken down including a combination of sharp dissection using Sonicision, a 12 mm port was placed along the epigastrium just inferior to the xiphoid process 15 cm off to the left of the midline. Next using again a blunt dissection and Kittner, the rest of the omentum which was adherent onto the abdominal wall was gently swept away from the midline and pelvis. A 12 mm trocar was placed along the right upper quadrant. Extensive laparoscopic lysis of adhesions over 2 hours was performed. Given the severity of her malignant peritoneal adhesions, the gastric bypass was abandoned. Attention is now brought to removal of her adjustable gastric band. The port was palpated at the lateral left costal margin and the band was found underneath the liver. A 15 mm port was placed along the left anterior axillary line. The patient was placed in steep reverse Trendelenburg position. The port was followed with its tubing to the actual band. The gastrohepatic ligament was actually scarred from her prior surgery. Using electro-Bovie cautery, the cicatrix of the port was incised. The band was then freed. The band was unbuckled and cut. The tubing was cut approximately 5 cm distal to the actual adapter. The band was removed in total without injury to the stomach. Hemostasis was excellent. The port was removed from the abdominal cavity via the 15 mm port. Next, attention was brought to the abdominal wall where the lap band port was palpated. The left upper quadrant incision incision was sent electrically over the prominence of the port using a #11 blade. Skin was localized with anesthetic. Electro-Bovie cautery was used to enter the capsule around the port. The sutures were cut and the port was removed in total along with the tubing. Diagnostic laparoscopy demonstrated complete removal of all foreign body. I then went to the head of the bed to perform intraoperative esophagogastroduodenoscopy to evaluate for gastritis and any full thickness injury to the stomach. An Olympus gastroscope was passed from the posterior oropharynx down to the esophagus, where the squamocolumnar junction was found LA grade B erosive esophagitis, chronic changes. The stomach was entered and bile reflux was found as aspirated. Chronic gastritis was found along the antrum without gastric ulcers or duodenitis or duodenal ulcers. Retroflexion of the scope confirmed a Hill grade 4 lower esophageal valve. No full-thickness erosion from the prior band was encountered. No blood was found within the stomach. Mild gastritis with identified. The stomach was desufflated. The patient tolerated the procedure well. Again, no evidence of leak was encountered from the removal of the band. Along the left upper quadrant 15 mm port site, Sanket Albert 0 Vicryl sutures were used to close the fascia. I then went back to the patient's bedside after re-scrubbing. All instruments and pneumoperitoneum were evacuated from the abdominal cavity. The port extraction site was hemostatic. The port site was irrigated using normal saline and hydrogen peroxide approximately, 50 mL. The skin was closed in layers using 0-Vicryl for the deep dermis and subcutaneous tissue. The rest of the incisions were reapproximated using 4-0 Monocryl in a subcuticular interrupted fashion. Optifoam dressing was placed over the port extraction site and along the left upper quadrant to decrease risk for surgical site infection. A 4 x 4 gauze packing was placed. At the end of the procedure, needle, sponge and instrument count was verified correct by the operating room surgical technician. The patient had tolerated the procedure well. The patient was transferred to Postanesthesia Care Unit in stable condition. FINDINGS: 1. Malignant severe peritoneal adhesions throughout the entire abdomen prohibiting Daniel-en-Y gastric bypass or robotic approach. 2. Extensive laparoscopic lysis of adhesions over 2 hours performed greater omentum to the anterior abdominal wall throughout all quadrants without enterotomies. 3. Gastritis identified without injury to the proximal stomach. 4. Dense scarring from adjustable gastric band to proximal stomach with hiatal hernia identified
== END 2017-06-07 12:45 | disposition home or self-care (01) | DRG 337 ==
LOC: 2ORWHC 09:37 → 3SUR 18:32
PROVIDERS: ADMIT Surgery Plastic and Reconstructive Surgery; ATTEND Surgery Plastic and Reconstructive Surgery
PROC: 0DP64CZ Removal of Extraluminal Device from Stomach, Percutaneous Endoscopic Approach (ICD-10-PCS; principal; 2017-06-06 11:35)
PROC: 0DJ08ZZ Inspection of Upper Intestinal Tract, Via Natural or Artificial Opening Endoscopic (ICD-10-PCS; principal; 2017-06-06 11:35)
PROC: 0DNS4ZZ (ICD-10-PCS; principal; 2017-06-06 11:35)
DX: K95.09 Other complications of gastric band procedure (principal); E66.01 Morbid (severe) obesity due to excess calories; I10 Essential (primary) hypertension; E55.9 Vitamin D deficiency, unspecified; E78.5 Hyperlipidemia, unspecified; G47.419 Narcolepsy without cataplexy; G89.4 Chronic pain syndrome; H91.90 Unspecified hearing loss, unspecified ear; J44.9 Chronic obstructive pulmonary disease, unspecified; K21.9 Gastro-esophageal reflux disease without esophagitis; K29.70 Gastritis, unspecified, without bleeding; K44.9 Diaphragmatic hernia without obstruction or gangrene; K66.0 Peritoneal adhesions (postprocedural) (postinfection); R13.19 Other dysphagia; Y83.1 Surgical operation with implant of artificial internal device as the cause of abnormal reaction of the patient, or of later complication, without mention of misadventure at the time of the procedure; Z68.37 Body mass index [BMI] 37.0-37.9, adult; Z82.49 Family history of ischemic heart disease and other diseases of the circulatory system; Z82.5 Family history of asthma and other chronic lower respiratory diseases; Z86.711 Personal history of pulmonary embolism; Z86.718 Personal history of other venous thrombosis and embolism; K29.50 Unspecified chronic gastritis without bleeding
CPT/HCPCS: 80051; 80053; 82310; 82565; 83735; 84100; 84520; 85025; 86850; 86900; 86901

== ENCOUNTER → 2017-06-11 | Outpatient (CLI) | payer MEDICARE ==
[2017-06-11 14:29] VITALS: BP 114/58; PULSE 73; TEMP 98.4; BMI 38.4
--- NOTE | 2017-07-11 23:33 | P.PN ---
Progress Note - Text DATE OF SERVICE: 06/11/2017. CHIEF COMPLAINT: Follow-up laparoscopic lysis of adhesions HISTORY OF PRESENT ILLNESS: Paula Mandel is a 56 -year-old female who is status post extensive lysis of adhesions after in a banded Daniel-en-Y gastric bypass. She had severe malignant intra-abdominal adhesions which prohibited her surgery. Her highest weight since December 2011 was 299 pounds. Her lowest weight was 171 pounds. She comes in with weight 52 pounds despite multiple attempts with her adjustable gastric band. She can no further tolerate any adjustments as she gets esophageal dysphagia. Now she presents for follow-up. Her body mass index is reduced from 51.4 down to 38.4. Her ideal body weight is 144 pounds. Her maintained weight loss is 76 pounds. PHYSICAL EXAM: VITAL SIGNS: 5 feet 4 inches, 223 pounds. Body mass index 38.4. Vital Signs 06/11/17 14:26 Temperature 98.4 F Pulse Rate 73 Blood Pressure 114/58 ABDOMEN: Soft, nontender, nondistended. All incisions clean dry and intact with Dermabond. No signs of infection. GENERAL: Well-developed, pleasant female in no acute distress. MUSCULOSKELETAL: No clubbing, cyanosis, or edema. pounds. HEENT: No sclera icterus. Extraocular movements grossly intact. Moist buccal mucosa. Head is atraumatic, normocephalic. No nasal drainage. NECK: Supple without lymphadenopathy. No JV distention. CHEST: Non-labored respirations and equal bilateral excursions. CARDIOVASCULAR: Regular rate and rhythm. Palpable 2+ radial pulses. NEUROLOGIC: No focal or lateralizing signs. ASSESSMENT: 1. Morbid obesity due to excess calories. 2. Body mass index reduced from 51.4 down to 38.4. 3. History of adjustable gastric band. 4. Status post massive weight loss of 76 pounds. 5. Osteoarthritis of the lower back and hips. 6. History of chronic pain syndrome 7. Weight regain following bariatric procedure. 8. Complications from adjustable gastric band. 9. Severe peritoneal adhesions. PLAN: 1. As she cannot tolerate any further adjustments with her adjustable gastric band, we'll revisit future attempt for her gastric bypass. 2. In the interim, post-bariatric weight loss diet including 75 g protein daily was advised. 3. Patient was scheduled tentatively for September 2017.
== END | disposition home or self-care (01) ==
LOC: BARWHC3 13:15
PROVIDERS: ATTEND Surgery Plastic and Reconstructive Surgery
DX: K66.0 Peritoneal adhesions (postprocedural) (postinfection) (principal); E66.01 Morbid (severe) obesity due to excess calories; Z68.38 Body mass index [BMI] 38.0-38.9, adult; M47.816 Spondylosis without myelopathy or radiculopathy, lumbar region; M16.0 Bilateral primary osteoarthritis of hip; K95.09 Other complications of gastric band procedure; Z98.84 Bariatric surgery status
CPT/HCPCS: 99211

== ENCOUNTER → 2017-06-18 | Outpatient (CLI) | payer MEDICARE ==
--- NOTE | 2017-07-27 18:31 | P.PN ---
Progress Note - Text DATE OF SERVICE: 06/18/2017. CHIEF COMPLAINT: Follow-up laparoscopic lysis of adhesions HISTORY OF PRESENT ILLNESS: Paula Mandel is a 56 -year-old female who is status post extensive lysis of adhesions June 06, 2017. She had severe malignant intra-abdominal adhesions which prohibited her gastric bypass. Her highest weight since December 2011 was 299 pounds. Her present weight is 224 pounds. She has gained 53 pounds from 171 pounds. Her body mass index is reduced from 51.4 down to 38.6. Her ideal body weight is 144 pounds. Her maintained weight loss is 75 pounds. She has stopped her protein shakes. She denies any signs of infections. For dinner last night, she is eating moderate amount of carbs. Her weight since her last visit 1 week ago has increased by 1 pound. She is eager to start swimming. PHYSICAL EXAM: VITAL SIGNS: 5 feet 4 inches, 224 pounds. Body mass index 38.6. Vital Signs Temp 98.1 F 06/18/17 13:25 Pulse 72 06/18/17 13:25 Resp 16 06/18/17 13:25 BP 115/59 06/18/17 13:25 Pulse Ox ABDOMEN: Soft, nontender, nondistended. All incisions clean dry and intact. No signs of infection. GENERAL: Well-developed, pleasant female in no acute distress. MUSCULOSKELETAL: No clubbing, cyanosis, or edema. pounds. HEENT: No sclera icterus. Extraocular movements grossly intact. Moist buccal mucosa. Head is atraumatic, normocephalic. No nasal drainage. NECK: Supple without lymphadenopathy. No JV distention. CHEST: Non-labored respirations and equal bilateral excursions. CARDIOVASCULAR: Regular rate and rhythm. Palpable 2+ radial pulses. NEUROLOGIC: No focal or lateralizing signs. ASSESSMENT: 1. Morbid obesity due to excess calories. 2. Body mass index reduced from 51.4 down to 38.6. 3. History of adjustable gastric band. 4. Status post weight loss of 75 pounds. 5. Osteoarthritis of the lower back and hips. 6. History of chronic pain syndrome 7. Weight regain following bariatric procedure. 8. Complications from adjustable gastric band. 9. Severe peritoneal adhesions. PLAN: 1. She may resume swimming in tomorrow. 2. Dietary and surveillance advised to avoid moderate weight gain. 3. As she cannot tolerate any further adjustments of her gastric band and has complications from her band, recommend revision to gastric bypass. 4. Recommend complete tobacco cessation in the interim.
== END | disposition home or self-care (01) ==
CPT/HCPCS: 99211

== ENCOUNTER → 2017-07-08 | Outpatient (CLI) | payer MEDICARE ==
[2017-07-08 11:07] VITALS: BMI 39.6
== END ==
LOC: MNTWWP 07:59
PROVIDERS: ATTEND Surgery Plastic and Reconstructive Surgery
DX: E66.01 Morbid (severe) obesity due to excess calories (principal)
CPT/HCPCS: 97802

== ENCOUNTER → 2017-09-03 | Outpatient (CLI) | payer MEDICARE | END | disposition home or self-care (01) | LOC: LABWHC1 12:00 | PROVIDERS: ATTEND Anesthesiology | DX: Z01.812 Encounter for preprocedural laboratory examination (principal) | CPT/HCPCS: 86850; 86900; 86901 ==

== ENCOUNTER → 2017-09-12 | Outpatient (CLI) | payer MEDICARE ==
[2017-09-12 10:13] VITALS: BP 136/78; PULSE 78; RESP 20; TEMP 97.1; BMI 42.3
--- NOTE | 2017-11-15 20:06 | P.PN ---
Subjective Progress Note Date: 09/12/17 DATE OF SERVICE: 09/12/2017. CHIEF COMPLAINT: Follow-up gastric bypass. HISTORY OF PRESENT ILLNESS: Paula Mandel is a 7 -year-old female who is status gastric bypass, 09/08/2017. Her pain is controlled. She is tolerating liquids. Her highest weight since December 2011 was 299 pounds. Her present weight is 246 pounds. She has lost 53 pounds from her highest weight. Her body mass index is reduced from 51.4 down to 42.4. Her ideal body weight is 144 pounds. Her maintained weight loss is 53 pounds. PHYSICAL EXAM: VITAL SIGNS: 5 feet 4 inches, 246 pounds. Body mass index 42.4 Vital Signs Temp 97.1 F L 09/12/17 10:03 Pulse 78 09/12/17 10:03 Resp 20 09/12/17 10:03 BP 136/78 09/12/17 10:03 Pulse Ox ABDOMEN: Soft, nontender, nondistended. All incisions clean dry and intact. No signs of infection. Dressings were changed at bedside including Tegaderm. JERMAINE serosanguineous. GENERAL: Well-developed, pleasant female in no acute distress. MUSCULOSKELETAL: No clubbing, cyanosis, or edema. HEENT: No sclera icterus. Extraocular movements grossly intact. Moist buccal mucosa. Head is atraumatic, normocephalic. No nasal drainage. NECK: Supple without lymphadenopathy. No JV distention. CHEST: Non-labored respirations and equal bilateral excursions. CARDIOVASCULAR: Regular rate and rhythm. Palpable 2+ radial pulses. NEUROLOGIC: No focal or lateralizing signs. ASSESSMENT: 1. Morbid obesity due to excess calories. 2. Body mass index reduced from 51.4 down to 42.4. 3. Status post gastric bypass. PLAN: 1. Diet instructions reviewed. 2. She may take her inhaler and omeprazole. 3. Her diet was reviewed with daughter at bedside. 4. Follow-up next week. 5. Patient is high risk for readmission. 6. Continue with JERMAINE drain. Objective - Vital Signs Vital signs: Vital Signs Temp 97.1 F L 09/12/17 10:03 Pulse 78 09/12/17 10:03 Resp 20 09/12/17 10:03 BP 136/78 09/12/17 10:03 Pulse Ox Intake & Output 09/11/17 09/12/17 09/12/17 18:59 06:59 18:59 Weight 111.947 kg
== END | disposition home or self-care (01) ==
LOC: BARWHC3 09:51
PROVIDERS: ATTEND Surgery Plastic and Reconstructive Surgery
DX: Z48.815 Encounter for surgical aftercare following surgery on the digestive system (principal); E66.01 Morbid (severe) obesity due to excess calories; Z68.41 Body mass index [BMI] 40.0-44.9, adult; Z98.84 Bariatric surgery status
CPT/HCPCS: 99211

== ENCOUNTER → 2017-09-15 | Outpatient (CLI) | payer MEDICARE ==
[2017-09-15 10:26] VITALS: BP 121/58; PULSE 72; RESP 16; TEMP 97.8; BMI 40.5
--- NOTE | 2017-11-15 20:26 | P.PN ---
Subjective Progress Note Date: 09/15/17 DATE OF SERVICE: 09/15/2017. CHIEF COMPLAINT: Follow-up gastric bypass. HISTORY OF PRESENT ILLNESS: Paula Mandel is a 56 -year-old female who is status gastric bypass, 09/08/2017. Her pain is controlled. No reports of nausea and vomiting. She still has a JERMAINE drain. Her pain is well-controlled. JERMAINE output is over 150 mL daily. Her highest weight since December 2011 was 299 pounds. Her present weight is 236 pounds. She has lost 63 pounds from her highest weight. Her body mass index is reduced from 51.4 down to 40.6. Her ideal body weight is 144 pounds. She has lost 11 pounds in 1 week. PHYSICAL EXAM: VITAL SIGNS: 5 feet 4 inches, 236 pounds. Body mass index 40.6 Vital Signs Temp 97.8 F 09/15/17 10:16 Pulse 72 09/15/17 10:16 Resp 09/15/17 10:16 BP 121/58 09/15/17 10:16 Pulse Ox ABDOMEN: Soft, nontender, nondistended. All incisions clean dry and intact. No signs of infection. Dressings were changed at bedside including Tegaderm. JERMAINE serosanguineous and over 150 mL daily. GENERAL: Well-developed, pleasant female in no acute distress. MUSCULOSKELETAL: No clubbing, cyanosis, or edema. HEENT: No sclera icterus. Extraocular movements grossly intact. Moist buccal mucosa. Head is atraumatic, normocephalic. No nasal drainage. NECK: Supple without lymphadenopathy. No JV distention. CHEST: Non-labored respirations and equal bilateral excursions. CARDIOVASCULAR: Regular rate and rhythm. Palpable 2+ radial pulses. NEUROLOGIC: No focal or lateralizing signs. ASSESSMENT: 1. Morbid obesity due to excess calories. 2. Body mass index reduced from 51.4 down to 40.6. 3. Status post gastric bypass. PLAN: 1. JERMAINE outputs are still high. Recommend follow-up in 5 days. 2. Protein intake over 75 g advised. Objective - Vital Signs Vital signs: Vital Signs Temp 97.8 F 09/15/17 10:16 Pulse 72 09/15/17 10:16 Resp 16 09/15/17 10:16 BP 121/58 09/15/17 10:16 Pulse Ox Intake & Output 09/14/17 09/15/17 09/15/17 18:59 06:59 18:59 Weight 107.161 kg
== END | disposition home or self-care (01) ==
LOC: BARWHC3 09:52
PROVIDERS: ATTEND Surgery Plastic and Reconstructive Surgery
DX: Z48.815 Encounter for surgical aftercare following surgery on the digestive system (principal); E66.01 Morbid (severe) obesity due to excess calories; Z98.84 Bariatric surgery status; Z68.41 Body mass index [BMI] 40.0-44.9, adult
CPT/HCPCS: 99211

== ENCOUNTER → 2017-09-19 | Outpatient (CLI) | payer MEDICARE ==
[2017-09-19 10:55] VITALS: BP 102/62; PULSE 64; TEMP 97.6; BMI 30.5
--- NOTE | 2017-11-16 16:52 | P.PN ---
Subjective Progress Note Date: 09/19/17 DATE OF SERVICE: 09/19/2017. CHIEF COMPLAINT: Follow-up gastric bypass. HISTORY OF PRESENT ILLNESS: Paula Mandel is a 56 -year-old female who is status gastric bypass, 09/08/2017. No reports of nausea and vomiting. She is tolerating liquids. No reports of abdominal pain. No fevers or chills. She is eager to eat solid food. Her highest weight since December 2011 was 299 pounds. Her present weight is 236 pounds. She has lost 66 pounds from her highest weight. Her body mass index is reduced from 51.4 down to 40.6. Her ideal body weight is 144 pounds. She has lost 3 pounds in 1 week. PHYSICAL EXAM: VITAL SIGNS: 5 feet 4 inches, 233 pounds. Body mass index 40.0 Vital Signs Temp 97.6 F 09/19/17 10:38 Pulse 64 09/19/17 10:38 Resp BP 102/62 09/19/17 10:38 Pulse Ox ABDOMEN: Soft, nontender, nondistended. All incisions clean dry and intact. No signs of infection. JERMAINE serosanguineous and removed at bedside. GENERAL: Well-developed, pleasant female in no acute distress. MUSCULOSKELETAL: No clubbing, cyanosis, or edema. HEENT: No sclera icterus. Extraocular movements grossly intact. Moist buccal mucosa. Head is atraumatic, normocephalic. No nasal drainage. NECK: Supple without lymphadenopathy. No JV distention. CHEST: Non-labored respirations and equal bilateral excursions. CARDIOVASCULAR: Regular rate and rhythm. Palpable 2+ radial pulses. NEUROLOGIC: No focal or lateralizing signs. ASSESSMENT: 1. Morbid obesity due to excess calories. 2. Body mass index reduced from 51.4 down to 40.0. 3. Status post gastric bypass. PLAN: 1. JERMAINE was discontinued. 2. Follow-up one week with adjustment of diet. Objective - Vital Signs Vital signs: Vital Signs Temp 97.6 F 09/19/17 10:38 Pulse 64 09/19/17 10:38 Resp BP 102/62 09/19/17 10:38 Pulse Ox Intake & Output 09/18/17 09/19/17 09/19/17 18:59 06:59 18:59 Weight 85.91 kg
== END | disposition home or self-care (01) ==
LOC: BARWHC3 10:15
PROVIDERS: ATTEND Surgery Plastic and Reconstructive Surgery
DX: Z09 Encounter for follow-up examination after completed treatment for conditions other than malignant neoplasm (principal); E66.01 Morbid (severe) obesity due to excess calories; Z68.41 Body mass index [BMI] 40.0-44.9, adult; Z98.84 Bariatric surgery status
CPT/HCPCS: 99211

== ENCOUNTER → 2017-09-24 | Outpatient (CLI) | payer MEDICARE ==
[2017-09-24 09:29] VITALS: BP 118/83; PULSE 81; TEMP 97.5; BMI 39.0
--- NOTE | 2017-11-16 17:50 | P.PN ---
Subjective Progress Note Date: 09/24/17 DATE OF SERVICE: 09/24/2017. CHIEF COMPLAINT: Follow-up gastric bypass. HISTORY OF PRESENT ILLNESS: Paula Mandel is a 56 -year-old female who is status gastric bypass, 09/08/2017. She denies any problems today. No reports of nausea and vomiting. No fevers or chills. She is tolerating liquids. Her highest weight was 299 pounds. Her present weight is 227 pounds. She has lost 72 pounds from her highest weight. Her body mass index is reduced from 51.4 down to 39.0. Her ideal body weight is 144 pounds. She has lost 6 pounds in 1 week. PHYSICAL EXAM: VITAL SIGNS: 5 feet 4 inches, 227 pounds. Body mass index 39.0 Vital Signs Temp 97.5 F L 09/24/17 09:27 Pulse 81 09/24/17 09:27 Resp BP 118/83 09/24/17 09:27 Pulse Ox ABDOMEN: Soft, nontender, nondistended. All incisions clean dry and intact. No signs of infection. GENERAL: Well-developed, pleasant female in no acute distress. MUSCULOSKELETAL: No clubbing, cyanosis, or edema. HEENT: No sclera icterus. Extraocular movements grossly intact. Moist buccal mucosa. Head is atraumatic, normocephalic. No nasal drainage. NECK: Supple without lymphadenopathy. No JV distention. CHEST: Non-labored respirations and equal bilateral excursions. CARDIOVASCULAR: Regular rate and rhythm. Palpable 2+ radial pulses. NEUROLOGIC: No focal or lateralizing signs. ASSESSMENT: 1. Morbid obesity due to excess calories. 2. Body mass index reduced from 51.4 down to 39.0. 3. Status post gastric bypass. PLAN: 1. Patient reports no issues. 2. No signs of wound infection. 3. Liquid diet advised. 4. Follow-up in one week. Objective - Vital Signs Vital signs: Vital Signs Temp 97.5 F L 09/24/17 09:27 Pulse 81 09/24/17 09:27 Resp BP 118/83 09/24/17 09:27 Pulse Ox Intake & Output 09/23/17 09/24/17 09/24/17 18:59 06:59 18:59 Weight 103.192 kg
== END | disposition home or self-care (01) ==
LOC: BARWHC3 09:06
PROVIDERS: ATTEND Surgery Plastic and Reconstructive Surgery
DX: Z48.815 Encounter for surgical aftercare following surgery on the digestive system (principal); E66.01 Morbid (severe) obesity due to excess calories; Z79.899 Other long term (current) drug therapy; Z98.84 Bariatric surgery status
CPT/HCPCS: 97803; G0463; 99211

== ENCOUNTER → 2017-10-02 | Outpatient (CLI) | payer MEDICARE ==
[2017-10-02 10:04] VITALS: BMI 38.1
[2017-10-02 12:47] VITALS: BP 114/63; PULSE 68; RESP 16; TEMP 97.6
[2017-10-02 16:18] LABS: HCT 47.7 % (34.0-46.0); Hypochromasia Slight; MCH 29.2 pg (25.0-35.0); MCHC 31.4 g/dL (31.0-37.0); MCV 92.8 fL (80.0-100.0); Mean Platelet Volume 10.5; Platelet Count 228 k/uL (150-450); RBC 5.14 m/uL (3.80-5.40); RDW 14.2 % (11.5-15.5); WBC 5.3 k/uL (3.8-10.6)
[2017-10-02 16:39] LABS: ALT 60 U/L (9-52); AST 57 U/L (14-36); Albumin 4.5 g/dL (3.5-5.0); Alkaline Phosphatase 153 U/L (38-126); Anion Gap 10 mmol/L; Blood Urea Nitrogen 12 mg/dL (7-17); Calcium 10.2 mg/dL (8.4-10.2); Carbon Dioxide 26 mmol/L (22-30); Chloride 106 mmol/L (98-107); Cholesterol 205 mg/dL (<200); Glucose 98 mg/dL (74-99); HDL Cholesterol 52 mg/dL (40-60); LDL Cholesterol,Calculated 129 mg/dL (0-99); Magnesium 1.9 mg/dL (1.6-2.3); Phosphorous 3.7 mg/dL (2.5-4.5); Potassium 4.6 mmol/L (3.5-5.1); Sodium 142 mmol/L (137-145); Total Bilirubin 0.6 mg/dL (0.2-1.3); Total Protein 7.7 g/dL (6.3-8.2); Triglycerides 118 mg/dL (<150)
[2017-10-02 16:45] LABS: INR 1.1 (<1.2); Partial Thromboplastin Time 22.6 sec (22.0-30.0); Prothrombin Time 10.8 sec (9.0-12.0)
[2017-10-03 01:00] LABS: Iron Saturation 14.24 (12.00-45.00)
[2017-10-03 01:03] LABS: Hemoglobin A1C 5.3 % (4.0-6.0)
[2017-10-03 01:04] LABS: Vitamin D 25 Hydroxy 27.4 ng/mL (30.0-100.0)
[2017-10-03 01:17] LABS: Folate, Serum 19.8 ng/mL
[2017-10-03 15:24] LABS: Zinc, Serum 122 ug/dL (60-130)
[2017-10-04 11:40] LABS: Vitamin B1 44 ug/L (38-122)
[2017-10-06 10:52] LABS: Vitamin A 34 ug/dL (38-106)
[2017-10-07 17:56] LABS: Selenium 135 mcg/L (63-160)
--- NOTE | 2017-11-17 17:38 | P.PN ---
Subjective Progress Note Date: 10/02/17 DATE OF SERVICE: 10/02/2017. CHIEF COMPLAINT: Follow-up gastric bypass. HISTORY OF PRESENT ILLNESS: Paula Mandel is a 56-year-old female who is status gastric bypass, 09/08/2017. She has transitioned from liquid to soft diet and is tolerating. No reports of abdominal pain. She is eager to eggs as well as chili. She has lost over 25 pounds in 2 weeks. Her highest weight was 299 pounds. Her present weight is 222 pounds. She has lost 77 pounds from her highest weight. Her body mass index is reduced from 51.4 down to 38.2. Her ideal body weight is 144 pounds. She has lost 5 pounds in 1 week. PHYSICAL EXAM: VITAL SIGNS: 5 feet 4 inches, 222 pounds. Body mass index 38.2 Vital Signs Temp 97.6 F 10/02/17 12:45 Pulse 68 10/02/17 12:45 Resp 16 10/02/17 12:45 BP 114/63 10/02/17 12:45 Pulse Ox ABDOMEN: Soft, nontender, nondistended. All incisions granulated. GENERAL: Well-developed, pleasant female in no acute distress. MUSCULOSKELETAL: No clubbing, cyanosis, or edema. HEENT: No sclera icterus. Extraocular movements grossly intact. Moist buccal mucosa. Head is atraumatic, normocephalic. No nasal drainage. NECK: Supple without lymphadenopathy. No JV distention. CHEST: Non-labored respirations and equal bilateral excursions. CARDIOVASCULAR: Regular rate and rhythm. Palpable 2+ radial pulses. NEUROLOGIC: No focal or lateralizing signs. ASSESSMENT: 1. Morbid obesity due to excess calories. 2. Body mass index reduced from 51.4 down to 38.2. 3. Status post gastric bypass. PLAN: 1. Recommend bariatric metabolic panel. 2. Protein intake over 75 g. 3. Follow-up closely 1-2 weeks. Laboratory Last Values WBC 5.3 k/uL (3.8-10.6) 10/02/17 15:22 RBC 5.14 m/uL (3.80-5.40) 10/02/17 15:22 Hgb 15.0 gm/dL (11.4-16.0) D 10/02/17 15:22 Hct 47.7 % (34.0-46.0) H 10/02/17 15: MCV 92.8 fL (80.0-100.0) 10/02/17 15:22 MCH 29.2 pg (25.0-35.0) 10/02/17 15:22 MCHC 31.4 g/dL (31.0-37.0) 10/02/17 15: RDW 14.2 % (11.5-15.5) 10/02/17 15:22 Plt Count 228 k/uL (150-450) 10/02/17 15:22 Hypochromasia Slight 10/02/17 15: PT 10.8 sec (9.0-12.0) 10/02/17 15: INR 1.1 (<1.2) 10/02/17 15: APTT 22.6 sec (22.0-30.0) 10/02/17 15:22 Sodium 142 mmol/L (137-145) 10/02/17 15:22 Potassium 4.6 mmol/L (3.5-5.1) 10/02/17 15: Chloride 106 mmol/L (98-107) 10/02/17 15: Carbon Dioxide 26 mmol/L (22-30) 10/02/17 15:22 Anion Gap 10 mmol/L 10/02/17 15:22 BUN 12 mg/dL (7-17) 10/02/17 15:22 Creatinine 0.68 mg/dL (0.52-1.04) 10/02/17 15:22 Est GFR (MDRD) Af Amer >60 (>60 ml/min/1.73 sqM) 10/02/17 15:22 Est GFR (MDRD) Non-Af >60 (>60 ml/min/1.73 sqM) 10/02/17 15:22 Glucose 98 mg/dL (74-99) 10/02/17 15:[address] Glu mg/dL 105 10/02/17 15:22 Hemoglobin A1c 5.3 % (4.0-6.0) 10/02/17 15:22 Calcium 10.2 mg/dL (8.4-10.2) 10/02/17 15:22 Phosphorus 3.7 mg/dL (2.5-4.5) 10/02/17 15:22 Magnesium 1.9 mg/dL (1.6-2.3) 10/02/17 15:22 Iron 41 ug/dL (50-170) L 10/02/17 15:22 TIBC 288 ug/dL (228-460) 10/02/17 15:22 Iron Saturation 14.24 (12.00-45.00) 10/02/17 15:22 Ferritin 54.7 ng/mL (10.0-291.0) 10/02/17 15:22 Total Bilirubin 0.6 mg/dL (0.2-1.3) 10/02/17 15:22 AST 57 U/L (14-36) H 10/02/17 15:22 ALT 60 U/L (9-52) H 10/02/17 15:22 Alkaline Phosphatase 153 U/L (38-126) H 10/02/17 15:22 Total Protein 7.7 g/dL (6.3-8.2) 10/02/17 15:22 Albumin 4.5 g/dL (3.5-5.0) 10/02/17 15:22 Prealbumin 16.0 mg/dL (18.0-42.0) L 10/02/17 15:22 Triglycerides 118 mg/dL (<150) 10/02/17 15:22 Cholesterol 205 mg/dL (<200) H 10/02/17 15:22 LDL Cholesterol, Calc 129 mg/dL (0-99) H 10/02/17 15:22 HDL Cholesterol 52 mg/dL (40-60) 10/02/17 15:22 Vitamin A 34 ug/dL (38-106) L 10/02/17 15:22 Vitamin B1 44 ug/L (38-122) 10/02/17 15:22 Vitamin B12 1135.0 pg/mL (200.0-944.0) H 10/02/17 15:22 Vitamin D 25-Hydroxy 27.4 ng/mL (30.0-100.0) L 10/02/17 15:22 Folate 19.8 ng/mL 10/02/17 15:22 TSH 0.930 mIU/L (0.465-4.680) 10/02/17 15:22 PTH Intact 47.0 pg/mL (14.0-72.0) 10/02/17 15:22 Copper 1924 ug/L (810-1990) 10/02/17 15:22 Selenium 135 mcg/L (63-160) 10/02/17 15:22 Zinc 122 ug/dL (60-130) 10/02/17 15:22 Iron is low. AST elevated. Prealbumin is low. Cholesterol elevated. Vitamin A low. Vitamin D low. Vitamin B12 supratherapeutic. Recommend iron infusion. Recommend vitamin A supplement. Recommend vitamin D supplement. Objective - Vital Signs Vital signs: Vital Signs Temp 97.6 F 10/02/17 12:45 Pulse 68 10/02/17 12:45 Resp 16 10/02/17 12:45 BP 114/63 10/02/17 12:45 Pulse Ox Intake & Output 10/01/17 10/02/17 10/02/17 18:59 06:59 18:59 Weight 100.834 kg - Labs CBC & Chem 7: 10/02/17 15:22 10/02/17 15:22 Labs: Abnormal Lab Results - Last 24 Hours (Table) 10/02/17 Range/Units 15:22 Hct 47.7 H (34.0-46.0) %
== END | disposition home or self-care (01) ==
LOC: BARWHC3 09:06
PROVIDERS: ATTEND Surgery Plastic and Reconstructive Surgery
DX: Z09 Encounter for follow-up examination after completed treatment for conditions other than malignant neoplasm (principal); E66.01 Morbid (severe) obesity due to excess calories; E21.1 Secondary hyperparathyroidism, not elsewhere classified; E89.1 Postprocedural hypoinsulinemia; K90.9 Intestinal malabsorption, unspecified; D50.9 Iron deficiency anemia, unspecified; E55.9 Vitamin D deficiency, unspecified; K76.9 Liver disease, unspecified; N19 Unspecified kidney failure; K50.90 Crohn's disease, unspecified, without complications; Z68.38 Body mass index [BMI] 38.0-38.9, adult; Z98.84 Bariatric surgery status
CPT/HCPCS: 84255; 84134; 84425; 80061; 80053; 82607; 82728; 82525; 82746; 83540; 83550; 83735; 84100; 84443; 84590; 84630; 85027; 85610; 85730; 82306; 83970; 83036; 97803; 36415; G0463; 99211

== ENCOUNTER → 2017-11-07 | Day surgery (SDC) | payer MEDICARE ==
[2017-11-05 23:31] VITALS: BMI 37.5
[~2017-11-07] MED LIST changes: -ACETAMINOPHEN IV (For NPO) 1,000 MG in EMPTY BAG 1 BAG IVPB ONE; -AMPICILLIN-SULBACTAM 3 GM in SODIUM CHLORIDE 0.9% 100 ML IVPB ONE; -CHLORHEXIDINE GLUCONATE 15 ML CUP MUCOUS MEM ONE; -DEXAMETHASONE SOD PHOSPHATE 10 MG/ML 1 ML VIAL IV ONE; -ENOXAPARIN 40 MG/0.4 ML SYRINGE SQ STA; +LACTATED RINGERS 1,000 ML IV ONE; +LACTATED RINGERS 1,000 ML IV SCH; -LIDOCAINE 1% 20 ML VIAL (10MG/ML) FOR IV START INTRADERMA PRN; +LIDOCAINE 1% INJ 10MG/ML (20 ML MDV) ONE; -ONDANSETRON 4 MG/2 ML VIAL IVP ONE; -PANTOPRAZOLE 40 MG/10 ML VIAL IV STA; +PROPOFOL 10 MG/ML 20 ML VIAL IV ONE; -SCOPOLAMINE 1.5MG/72HR PATCH TRANSDERM ONE; -ceFAZolin 2 GM in SODIUM CHLORIDE 0.9% 100 ML IVPB ONE
[2017-11-07 07:02] VITALS: TEMP 94.7
--- NOTE | 2017-11-07 08:29 | P.GSHP ---
History of Present Illness H&P Date: 11/07/17 CHIEF COMPLAINT: Esophageal stricture HISTORY OF PRESENT ILLNESS: The patient is a 56-year-old female who presents reports dysphagia. Upper endoscopy was offered for further evaluation and management. PAST MEDICAL HISTORY: Please see list. PAST SURGICAL HISTORY: Please see list. MEDICATIONS: Please see list. ALLERGIES: Please see list. SOCIAL HISTORY: No illicit drug use FAMILY HISTORY: No reports of Crohn disease or ulcerative colitis. REVIEW OF ORGAN SYSTEMS: CONSTITUTIONAL: No reports of fevers or chills. GI: Denies any blood in stools or constipation. PHYSICAL EXAM: VITAL SIGNS: Stable GENERAL: Well-developed and pleasant in no acute distress. HEENT: No scleral icterus. Extraocular movements grossly intact. Moist buccal mucosa. NECK: Supple without lymphadenopathy. CHEST: Unlabored respirations. Equal bilateral excursions. CARDIOVASCULAR: Regular rate and rhythm. Distal 2+ pulses. ABDOMEN: Soft, nondistended. MUSCULOSKELETAL: No clubbing, cyanosis, or edema. ASSESSMENT: 1. Esophageal stricture PLAN: 1. Recommend proceeding with an upper endoscopy with dilation. Past Medical History Past Medical History: Asthma, Chest Pain / Angina, COPD, Deep Vein Thrombosis ( DVT), GERD/Reflux, Hearing Disorder / Deafness, Hyperlipidemia, Osteoarthritis ( OA), Pneumonia, Pulmonary Embolus (PE), Respiratory Disorder Additional Past Medical History / Comment(s): states "having difficulty swallowing",Chronic Bronchitis. NARCOLEPSY. "NERVE DAMAGE BACK DOWN TO KNEES, FALLS OCC," CHRONIC BACK PAIN. SCIATICA, MULTIPLE HX DVT, PE, MATCH-E-BE-NASH-SHE-WISH BAND bilaterally. severe constipation History of Any Multi-Drug Resistant Organisms: None Reported Past Surgical History: Bariatric Surgery, Bladder Surgery, Section, Cholecystectomy, Hysterectomy, Orthopedic Surgery Additional Past Surgical History / Comment(s): 09/18/16 Panniculectomy, repair incarcerated ventral hernia, adjustment lap band, port revision. Other surgical hx: 2007 Lap Band; ORIF RT Ankle- PLATE, SCREWS. lap band removal 06-06-17 gastric bypass 09-08-17 Past Anesthesia/Blood Transfusion Reactions: No Reported Reaction Smoking Status: Former smoker - Past Family History Father History Unknown: Yes Family Medical History: Cancer Mother History Unknown: Yes Family Medical History: Cancer, Congestive Heart Failure (CHF), COPD Medications and Allergies Home Medications Medication Instructions Recorded Confirmed Type HYDROcodone/APAP 10-325MG [[place] 1 tab PO Q6H PRN 05/30/17 11/05/17 History 10-325] Omeprazole 40 mg PO DAILY #90 capsule. 10/16/17 11/05/17 Rx Multivitamins, Thera [Multivitamin 1 tab PO DAILY 11/05/17 11/05/17 History (formulary)] Allergies Allergy/AdvReac Type Severity Reaction Status Date / Time No Known Allergies Allergy Verified 11/05/17 15:25 Surgical - Exam Vital Signs Temp Pulse Resp BP Pulse Ox 94.7 F L 75 18 110/72 94 L 11/07/17 07:01 11/07/17 07:01 11/07/17 07:01 11/07/17 07:01 11/07/17 07:01
--- NOTE | 2017-11-07 08:44 | P.PCN ---
Date of Procedure: 11/07/17 Description of Procedure: PREOPERATIVE DIAGNOSIS: Dysphagia. Nausea with vomiting. POSTOPERATIVE DIAGNOSIS: Dysphagia. Morbid obesity. Gastrojejunal stricture without chronic ulcer without perforation OPERATION: Esophagogastrojejunoscopy with balloon dilatation from 9.5 to 15 mm. SURGEON: Stella Acosta MD ANESTHESIA: MAC. INDICATIONS: The patient is a 56-year-old female who presents with a history of dysphagia, including new-onset nausea and vomiting. Benefits and risks of the procedure were described. Informed consent was obtained. DESCRIPTION: The patient was brought into the endoscopy suite and laid in the left lateral decubitus position. After a timeout was confirmed, the procedure was initiated. An Olympus gastroscope was passed along the posterior oropharynx down to the distal esophagus where the squamocolumnar junction was unremarkable. The gastric pouch was entered. A gastrojejunal stricture of 12 mm was found as the adult gastroscope was 9.5 mm in size. A [employer] [place] balloon dilator was placed through the scope. Final insufflation up to 20 mm was performed with a total of 2 minutes. The scope was advanced up to 60 cm from the incisors into the Daniel limb. The mucosa of the gastrojejunal anastomosis was intact. However chronic gastrojejunal marginal ulcer was encountered. No full-thickness injury was encountered. The GI tract was desufflated. The patient tolerated the procedure well. FINDINGS: Squamocolumnar junction unremarkable at 37 cm. Stricture of approximately 9.5 mm encountered. No chronic gastrojejunal ulceration encountered. Successful balloon dilatation to 15 mm. RECOMMENDATIONS: Liquid diet. Upper endoscopy as needed. Plan - Discharge Summary New Discharge Prescriptions: No Action HYDROcodone/APAP 10-325MG [[place] 10-325] 1 tab PO Q6H PRN PRN Reason: Pain Omeprazole 40 mg PO DAILY #90 capsule. Multivitamins, Thera [Multivitamin (formulary)] 1 tab PO DAILY Discharge Medication List HYDROcodone/APAP 10-325MG [[place] 10-325] 1 tab PO Q6H PRN 05/30/17 [History] Omeprazole 40 mg PO DAILY #90 capsule. 10/16/17 [Rx] Multivitamins, Thera [Multivitamin (formulary)] 1 tab PO DAILY 11/05/17 [History ]
[2017-11-07 09:05] VITALS: BP 125/75; PULSE 68; RESP 16
== END | disposition home or self-care (01) ==
LOC: ORWHC2ENDO 06:44
PROVIDERS: ATTEND Surgery Plastic and Reconstructive Surgery
DX: K31.89 Other diseases of stomach and duodenum (principal); J44.9 Chronic obstructive pulmonary disease, unspecified; K21.9 Gastro-esophageal reflux disease without esophagitis; E78.5 Hyperlipidemia, unspecified; G89.29 Other chronic pain; M19.90 Unspecified osteoarthritis, unspecified site; M54.30 Sciatica, unspecified side; H91.93 Unspecified hearing loss, bilateral; I25.119 Atherosclerotic heart disease of native coronary artery with unspecified angina pectoris; G47.419 Narcolepsy without cataplexy; E66.01 Morbid (severe) obesity due to excess calories; Z68.37 Body mass index [BMI] 37.0-37.9, adult; Z98.84 Bariatric surgery status; Z79.899 Other long term (current) drug therapy; Z87.891 Personal history of nicotine dependence; Z86.718 Personal history of other venous thrombosis and embolism; Z86.711 Personal history of pulmonary embolism; Z87.01 Personal history of pneumonia (recurrent); Z86.73 Personal history of transient ischemic attack (TIA), and cerebral infarction without residual deficits; Z90.710 Acquired absence of both cervix and uterus; Z83.6 Family history of other diseases of the respiratory system; Z82.49 Family history of ischemic heart disease and other diseases of the circulatory system; Z98.0 Intestinal bypass and anastomosis status
CPT/HCPCS: 43245; J2001; J2704; C1726

== ENCOUNTER → 2017-11-13 | Outpatient (CLI) | payer MEDICARE ==
[2017-11-13 10:50] VITALS: BP 128/81; PULSE 73; TEMP 98.7; BMI 36.0
[2017-11-13 12:16] LABS: HCT 48.2 % (34.0-46.0); HGB 14.7 gm/dL (11.4-16.0); MCH 28.5 pg (25.0-35.0); MCHC 30.5 g/dL (31.0-37.0); MCV 93.4 fL (80.0-100.0); Mean Platelet Volume 8.1; Platelet Count 232 k/uL (150-450); RBC 5.16 m/uL (3.80-5.40); RDW 14.3 % (11.5-15.5); WBC 5.8 k/uL (3.8-10.6)
[2017-11-13 12:44] LABS: ALT 114 U/L (9-52); AST 53 U/L (14-36); Albumin 4.1 g/dL (3.5-5.0); Alkaline Phosphatase 245 U/L (38-126); Anion Gap 12 mmol/L; Blood Urea Nitrogen 14 mg/dL (7-17); Calcium 10.2 mg/dL (8.4-10.2); Carbon Dioxide 28 mmol/L (22-30); Chloride 104 mmol/L (98-107); Cholesterol 190 mg/dL (<200); Glucose 93 mg/dL (74-99); HDL Cholesterol 62 mg/dL (40-60); LDL Cholesterol,Calculated 97 mg/dL (0-99); Potassium 4.3 mmol/L (3.5-5.1); Sodium 144 mmol/L (137-145); Total Bilirubin 0.4 mg/dL (0.2-1.3); Triglycerides 157 mg/dL (<150)
[2017-11-13 13:17] LABS: Partial Thromboplastin Time 23.6 sec (22.0-30.0); Prothrombin Time 10.3 sec (9.0-12.0)
[2017-11-13 19:13] LABS: Folate, Serum >24.0 ng/mL
[2017-11-13 20:53] LABS: Parathyroid Hormone Intact 77.5 pg/mL (14.0-72.0)
[2017-11-13 21:04] LABS: Hemoglobin A1C 5.3 % (4.0-6.0)
[2017-11-14 13:45] LABS: Vitamin B1 31 ug/L (38-122)
[2017-11-17 05:40] LABS: Vitamin A 43 ug/dL (38-106)
--- NOTE | 2018-01-03 19:29 | P.PN ---
Subjective Progress Note Date: 11/13/17 DATE OF SERVICE: 11/13/2017. CHIEF COMPLAINT: Follow-up gastric bypass. HISTORY OF PRESENT ILLNESS: Paula Mandel is a 56-year-old female who is status gastric bypass, 09/08/2017. She reports resolution of her dysphagia and reflux following upper endoscopy with balloon dilatation. She reports constipation. She is drinking moderate dairy. She reports intermittent falling from taking moderate pain medications. Her highest weight was 299 pounds. Her present weight is 210 pounds. She has lost 89 pounds, lifetime. Her body mass index is reduced from 51.4 down to 36.0. Her ideal body weight is 144 pounds. She has lost 12 pounds in 1 month. PHYSICAL EXAM: VITAL SIGNS: 5 feet 4 inches, 222 pounds. Body mass index 38.2 Vital Signs Temp 98.7 F 11/13/17 10:46 Pulse 73 11/13/17 10:46 Resp BP 128/81 11/13/17 10:46 Pulse Ox ABDOMEN: Soft, nontender, nondistended. GENERAL: Well-developed, pleasant female in no acute distress. MUSCULOSKELETAL: No clubbing, cyanosis, or edema. HEENT: No sclera icterus. Extraocular movements grossly intact. Moist buccal mucosa. Head is atraumatic, normocephalic. No nasal drainage. NECK: Supple without lymphadenopathy. No JV distention. CHEST: Non-labored respirations and equal bilateral excursions. CARDIOVASCULAR: Regular rate and rhythm. Palpable 2+ radial pulses. NEUROLOGIC: No focal or lateralizing signs. SKIN: Well perfused. Good skin turgor. ASSESSMENT: 1. Morbid obesity due to excess calories. 2. Body mass index reduced from 51.4 down to 36.0. 3. Status post gastric bypass. 4. Constipation. PLAN: 1. Recommend bariatric metabolic panel. 2. Recommend MiraLAX for constipation. Laboratory Last Values WBC 5.8 k/uL (3.8-10.6) 11/13/17 11:36 RBC 5.16 m/uL (3.80-5.40) 11/13/17 11:36 Hgb 14.7 gm/dL (11.4-16.0) 11/13/17 11:36 Hct 48.2 % (34.0-46.0) H 11/13/17 11:36 MCV 93.4 fL (80.0-100.0) 11/13/17 11:36 MCH 28.5 pg (25.0-35.0) 11/13/17 11:36 MCHC 30.5 g/dL (31.0-37.0) L 11/13/17 11:36 RDW 14.3 % (11.5-15.5) 11/13/17 11:36 Plt Count 232 k/uL (150-450) 11/13/17 11:36 PT 10.3 sec (9.0-12.0) 11/13/17 11:36 INR 1.0 (<1.2) 11/13/17 11:36 APTT 23.6 sec (22.0-30.0) 11/13/17 11:36 Sodium 144 mmol/L (137-145) 11/13/17 11:36 Potassium 4.3 mmol/L (3.5-5.1) 11/13/17 11:36 Chloride 104 mmol/L (98-107) 11/13/17 11:36 Carbon Dioxide 28 mmol/L (22-30) 11/13/17 11:36 Anion Gap 12 mmol/L 11/13/17 11:36 BUN 14 mg/dL (7-17) 11/13/17 11:36 Creatinine 0.68 mg/dL (0.52-1.04) 11/13/17 11:36 Est GFR (MDRD) Af Amer >60 (>60 ml/min/1.73 sqM) 11/13/17 11:36 Est GFR (MDRD) Non-Af >60 (>60 ml/min/1.73 sqM) 11/13/17 11:36 Glucose 93 mg/dL (74-99) 11/13/17 11:[address] Glu mg/dL 105 11/13/17 11:36 Hemoglobin A1c 5.3 % (4.0-6.0) 11/13/17 11:36 Calcium 10.2 mg/dL (8.4-10.2) 11/13/17 11:36 Phosphorus 4.0 mg/dL (2.5-4.5) 11/13/17 11:36 Magnesium 2.0 mg/dL (1.6-2.3) 11/13/17 11:36 Iron 101 ug/dL (50-170) 11/13/17 11:36 TIBC 229 ug/dL (228-460) 11/13/17 11:36 Iron Saturation 44.10 (12.00-45.00) 11/13/17 11:36 Ferritin 648.3 ng/mL (10.0-291.0) H 11/13/17 11:36 Total Bilirubin 0.4 mg/dL (0.2-1.3) 11/13/17 11:36 AST 53 U/L (14-36) H 11/13/17 11:36 ALT 114 U/L (9-52) H 11/13/17 11:36 Alkaline Phosphatase 245 U/L (38-126) H 11/13/17 11:36 Total Protein 7.0 g/dL (6.3-8.2) 11/13/17 11:36 Albumin 4.1 g/dL (3.5-5.0) 11/13/17 11:36 Prealbumin 23.0 mg/dL (18.0-42.0) 11/13/17 11:36 Triglycerides 157 mg/dL (<150) H 11/13/17 11:36 Cholesterol 190 mg/dL (<200) 11/13/17 11:36 LDL Cholesterol, Calc 97 mg/dL (0-99) 11/13/17 11:36 HDL Cholesterol 62 mg/dL (40-60) H 11/13/17 11:36 Vitamin A 43 ug/dL (38-106) 11/13/17 11:36 Vitamin B1 31 ug/L (38-122) L 11/13/17 11:36 Vitamin B12 1242.0 pg/mL (200.0-944.0) H 11/13/17 11:36 Vitamin D 25-Hydroxy 26.8 ng/mL (30.0-100.0) L 11/13/17 11:36 Folate >24.0 ng/mL 11/13/17 11:36 TSH 1.390 mIU/L (0.465-4.680) 11/13/17 11:36 PTH Intact 77.5 pg/mL (14.0-72.0) H 11/13/17 11:36 Copper 1311 ug/L (810-1990) 11/13/17 11:36 Selenium 119 mcg/L (63-160) 11/13/17 11:36 Zinc 86 ug/dL (60-130) 11/13/17 11:36 Liver enzymes elevated. Vitamin D low. PTH elevated. Recommend calcium intake over 1200 mg. May need ultrasound of the liver. Objective - Vital Signs Vital signs: Vital Signs Temp 98.7 F 11/13/17 10:46 Pulse 73 11/13/17 10:46 Resp BP 128/81 11/13/17 10:46 Pulse Ox Intake & Output 11/12/17 11/13/17 11/13/17 18:59 06:59 18:59 Weight 95.254 kg - Labs CBC & Chem 7: 11/13/17 11:36 11/13/17 11:36
== END | disposition home or self-care (01) ==
LOC: BARWHC3 09:34
PROVIDERS: ATTEND Surgery Plastic and Reconstructive Surgery
DX: Z48.815 Encounter for surgical aftercare following surgery on the digestive system (principal); E66.01 Morbid (severe) obesity due to excess calories; E21.1 Secondary hyperparathyroidism, not elsewhere classified; E89.1 Postprocedural hypoinsulinemia; D50.9 Iron deficiency anemia, unspecified; K90.9 Intestinal malabsorption, unspecified; E55.9 Vitamin D deficiency, unspecified; K76.9 Liver disease, unspecified; N19 Unspecified kidney failure; K50.90 Crohn's disease, unspecified, without complications; Z68.36 Body mass index [BMI] 36.0-36.9, adult; Z98.84 Bariatric surgery status
CPT/HCPCS: 84255; 84134; 84425; 80061; 80053; 82607; 82728; 82525; 82746; 83540; 83550; 83735; 84100; 84443; 84590; 84630; 85027; 85610; 85730; 82306; 83970; 83036; 36415; G0463; 99211

== ENCOUNTER → 2017-12-10 | Outpatient (CLI) | payer MEDICARE ==
[2017-12-10 13:17] VITALS: BP 165/79; PULSE 62; TEMP 97.9; BMI 35.3
--- NOTE | 2018-01-03 19:36 | P.PN ---
Subjective Progress Note Date: 12/10/17 DATE OF SERVICE: 12/10/2017. CHIEF COMPLAINT: Follow-up gastric bypass. HISTORY OF PRESENT ILLNESS: Paula Mandel is a 57-year-old female who is status gastric bypass, 09/08/2017. She reports increasing forgetfulness and clinical lightheaded. No reports of this esophageal reflux disease. No reports of abdominal pain. Her highest weight was 299 pounds. Her present weight is 205 pounds. She has lost 94 pounds, lifetime. Her body mass index is reduced from 51.4 down to 35.3. Her ideal body weight is 144 pounds. She has lost 5 pounds in 1 month. PHYSICAL EXAM: VITAL SIGNS: 5 feet 4 inches, 205 pounds. Body mass index 35.3 Vital Signs Temp 97.9 F 12/10/17 13:11 Pulse 62 12/10/17 13:11 Resp BP 165/79 12/10/17 13:11 Pulse Ox ABDOMEN: Soft, nontender, nondistended. GENERAL: Well-developed, pleasant female in no acute distress. MUSCULOSKELETAL: No clubbing, cyanosis, or edema. HEENT: No sclera icterus. Extraocular movements grossly intact. Moist buccal mucosa. Head is atraumatic, normocephalic. No nasal drainage. NECK: Supple without lymphadenopathy. No JV distention. CHEST: Non-labored respirations and equal bilateral excursions. CARDIOVASCULAR: Regular rate and rhythm. Palpable 2+ radial pulses. NEUROLOGIC: No focal or lateralizing signs. SKIN: Well perfused. Good skin turgor. Laboratory Last Values WBC 5.8 k/uL (3.8-10.6) 11/13/17 11:36 RBC 5.16 m/uL (3.80-5.40) 11/13/17 11:36 Hgb 14.7 gm/dL (11.4-16.0) 11/13/17 11:36 Hct 48.2 % (34.0-46.0) H 11/13/17 11:36 MCV 93.4 fL (80.0-100.0) 11/13/17 11:36 MCH 28.5 pg (25.0-35.0) 11/13/17 11:36 MCHC 30.5 g/dL (31.0-37.0) L 11/13/17 11:36 RDW 14.3 % (11.5-15.5) 11/13/17 11:36 Plt Count 232 k/uL (150-450) 11/13/17 11:36 PT 10.3 sec (9.0-12.0) 11/13/17 11:36 INR 1.0 (<1.2) 11/13/17 11:36 APTT 23.6 sec (22.0-30.0) 11/13/17 11:36 Sodium 144 mmol/L (137-145) 11/13/17 11:36 Potassium 4.3 mmol/L (3.5-5.1) 11/13/17 11:36 Chloride 104 mmol/L (98-107) 11/13/17 11:36 Carbon Dioxide 28 mmol/L (22-30) 11/13/17 11:36 Anion Gap 12 mmol/L 11/13/17 11:36 BUN 14 mg/dL (7-17) 11/13/17 11:36 Creatinine 0.68 mg/dL (0.52-1.04) 11/13/17 11:36 Est GFR (MDRD) Af Amer >60 (>60 ml/min/1.73 sqM) 11/13/17 11:36 Est GFR (MDRD) Non-Af >60 (>60 ml/min/1.73 sqM) 11/13/17 11:36 Glucose 93 mg/dL (74-99) 11/13/17 11:[address] Glu mg/dL 105 11/13/17 11:36 Hemoglobin A1c 5.3 % (4.0-6.0) 11/13/17 11:36 Calcium 10.2 mg/dL (8.4-10.2) 11/13/17 11:36 Phosphorus 4.0 mg/dL (2.5-4.5) 11/13/17 11:36 Magnesium 2.0 mg/dL (1.6-2.3) 11/13/17 11:36 Iron 101 ug/dL (50-170) 11/13/17 11:36 TIBC 229 ug/dL (228-460) 11/13/17 11:36 Iron Saturation 44.10 (12.00-45.00) 11/13/17 11:36 Ferritin 648.3 ng/mL (10.0-291.0) H 11/13/17 11:36 Total Bilirubin 0.4 mg/dL (0.2-1.3) 11/13/17 11:36 AST 53 U/L (14-36) H 11/13/17 11:36 ALT 114 U/L (9-52) H 11/13/17 11:36 Alkaline Phosphatase 245 U/L (38-126) H 11/13/17 11:36 Total Protein 7.0 g/dL (6.3-8.2) 11/13/17 11:36 Albumin 4.1 g/dL (3.5-5.0) 11/13/17 11:36 Prealbumin 23.0 mg/dL (18.0-42.0) 11/13/17 11:36 Triglycerides 157 mg/dL (<150) H 11/13/17 11:36 Cholesterol 190 mg/dL (<200) 11/13/17 11:36 LDL Cholesterol, Calc 97 mg/dL (0-99) 11/13/17 11:36 HDL Cholesterol 62 mg/dL (40-60) H 11/13/17 11:36 Vitamin A 43 ug/dL (38-106) 11/13/17 11:36 Vitamin B1 31 ug/L (38-122) L 11/13/17 11:36 Vitamin B12 1242.0 pg/mL (200.0-944.0) H 11/13/17 11:36 Vitamin D 25-Hydroxy 26.8 ng/mL (30.0-100.0) L 11/13/17 11:36 Folate >24.0 ng/mL 11/13/17 11:36 TSH 1.390 mIU/L (0.465-4.680) 11/13/17 11:36 PTH Intact 77.5 pg/mL (14.0-72.0) H 11/13/17 11:36 Copper 1311 ug/L (810-1990) 11/13/17 11:36 Selenium 119 mcg/L (63-160) 11/13/17 11:36 Zinc 86 ug/dL (60-130) 11/13/17 11:36 ASSESSMENT: 1. Morbid obesity due to excess calories. 2. Body mass index reduced from 51.4 down to 35.3. 3. Status post gastric bypass. 4. Thiamine deficiency and symptomatic 5. Secondary hyperparathyroidism. 6. Vitamin D deficiency. 7. Elevated liver enzymes. PLAN: 1. Recommend calcium intake over 1200 mg daily. 2. Recommend repeat liver enzymes. 3. May need ultrasound of the liver. 4. Recommend thiamine infusion. Objective - Vital Signs Vital signs: Vital Signs Temp 97.9 F 12/10/17 13:11 Pulse 62 12/10/17 13:11 Resp BP 165/79 12/10/17 13:11 Pulse Ox Intake & Output 12/09/17 12/10/17 12/10/17 18:59 06:59 18:59 Weight 93.349 kg
== END | disposition home or self-care (01) ==
LOC: BARWHC3 11:20
PROVIDERS: ATTEND Surgery Plastic and Reconstructive Surgery
DX: Z09 Encounter for follow-up examination after completed treatment for conditions other than malignant neoplasm (principal); R41.3 Other amnesia; R42 Dizziness and giddiness; E66.01 Morbid (severe) obesity due to excess calories; E55.9 Vitamin D deficiency, unspecified; E51.9 Thiamine deficiency, unspecified; N25.81 Secondary hyperparathyroidism of renal origin; R74.8 Abnormal levels of other serum enzymes; Z68.35 Body mass index [BMI] 35.0-35.9, adult; Z98.84 Bariatric surgery status
CPT/HCPCS: 97803; G0463; 99211

== ENCOUNTER → 2017-12-17 | Outpatient (CLI) | payer MEDICARE ==
[2017-12-17 13:26] VITALS: BP 127/64; PULSE 64; RESP 16; TEMP 97.7; BMI 34.8
--- NOTE | 2018-01-03 19:42 | P.PN ---
Subjective Progress Note Date: 12/17/17 DATE OF SERVICE: 12/17/2017. CHIEF COMPLAINT: Follow-up gastric bypass. HISTORY OF PRESENT ILLNESS: Paula Mandel is a 57-year-old female who is status gastric bypass, 09/08/2017. Her protein intake is less than 75 g daily. She still complains of dizziness. She has been unable to get a thiamine infusion. She reports trouble with her veins. Her highest weight was 299 pounds. Her present weight is 203 pounds. She has lost 96 pounds, lifetime. Her body mass index is reduced from 51.4 down to 4.8. Her ideal body weight is 144 pounds. She has lost 3 pounds in 1 week. PHYSICAL EXAM: VITAL SIGNS: 5 feet 4 inches, 203 pounds. Body mass index 34.8. Vital Signs Temp 97.7 F 12/17/17 16:00 Pulse 64 12/17/17 16:00 Resp 16 12/17/17 16:00 BP 127/64 12/17/17 16:00 Pulse Ox ABDOMEN: Soft, nontender, nondistended. GENERAL: Well-developed, pleasant female in no acute distress. MUSCULOSKELETAL: No clubbing, cyanosis, or edema. HEENT: No sclera icterus. Extraocular movements grossly intact. Moist buccal mucosa. Head is atraumatic, normocephalic. No nasal drainage. NECK: Supple without lymphadenopathy. No JV distention. CHEST: Non-labored respirations and equal bilateral excursions. CARDIOVASCULAR: Regular rate and rhythm. Palpable 2+ radial pulses. NEUROLOGIC: No focal or lateralizing signs. SKIN: Well perfused. Good skin turgor. ASSESSMENT: 1. Morbid obesity due to excess calories. 2. Body mass index reduced from 51.4 down to 34.8. 3. Status post gastric bypass. 4. Thiamine deficiency and symptomatic 5. Secondary hyperparathyroidism. 6. Vitamin D deficiency. 7. Elevated liver enzymes. PLAN: 1. Recommend protein intake over 75 g. 2. As an alternative to IV kristen effusion, recommend oral thiamine supplement 5000 mg daily. Objective - Vital Signs Vital signs: Vital Signs Temp 97.7 F 12/17/17 13:20 Pulse 64 12/17/17 13:20 Resp 16 12/17/17 13:20 BP 127/64 02/14/18 13:20 Pulse Ox Intake & Output 02/13/18 02/14/18 02/14/18 18:59 06:59 18:59 Weight 92.079 kg
== END | disposition home or self-care (01) ==
LOC: BARWHC3 12:24
PROVIDERS: ATTEND Surgery Plastic and Reconstructive Surgery
DX: E66.01 Morbid (severe) obesity due to excess calories (principal); E51.9 Thiamine deficiency, unspecified; N25.81 Secondary hyperparathyroidism of renal origin; E55.9 Vitamin D deficiency, unspecified; Z98.84 Bariatric surgery status; R74.8 Abnormal levels of other serum enzymes; Z68.34 Body mass index [BMI] 34.0-34.9, adult
CPT/HCPCS: 99211

== ENCOUNTER → 2018-01-14 | Outpatient (CLI) | payer MEDICARE ==
[2018-01-14 13:14] VITALS: BP 119/85; PULSE 80; RESP 16; TEMP 97.5; BMI 34.8
--- NOTE | 2018-02-26 18:03 | P.PN ---
Subjective Progress Note Date: 01/14/18 DATE OF SERVICE: 01/14/2018 CHIEF COMPLAINT: Follow-up gastric bypass. HISTORY OF PRESENT ILLNESS: Paula Mandel is a 57-year-old female who is status gastric bypass, 09/08/2017. She is 4 months postop. She reports chronic lower back pain. Her weight has overall plateau. She reports increased constipation. She also reports difficulty with recent weight loss. She reports minimal activity secondary to the current weather conditions. Her highest weight was 299 pounds. Her present weight is 203 pounds. She has lost 96 pounds, lifetime. Her weight has been unchanged in the past 1 month. Her body mass index is reduced from 51.4 down to 34.8. Her ideal body weight is 144 pounds. PHYSICAL EXAM: VITAL SIGNS: 5 feet 4 inches, 203 pounds. Body mass index 34.8. Vital Signs Temp 97.5 F L 01/14/18 13:11 Pulse 80 01/14/18 13:11 Resp 16 01/14/18 13:11 BP 119/85 01/14/18 13:11 Pulse Ox ABDOMEN: Soft, nontender, nondistended. No incisional hernias. GENERAL: Well-developed, pleasant female in no acute distress. MUSCULOSKELETAL: No clubbing, cyanosis, or edema. HEENT: No sclera icterus. Extraocular movements grossly intact. Moist buccal mucosa. Head is atraumatic, normocephalic. No nasal drainage. NECK: Supple without lymphadenopathy. No JV distention. CHEST: Non-labored respirations and equal bilateral excursions. CARDIOVASCULAR: Regular rate and rhythm. Palpable 2+ radial pulses. NEUROLOGIC: No focal or lateralizing signs. SKIN: Well perfused. Good skin turgor. ASSESSMENT: 1. Morbid obesity due to excess calories. 2. Body mass index reduced from 51.4 down to 34.8. 3. Status post gastric bypass 4. Thiamine deficiency 5. Secondary hyperparathyroidism. 6. Vitamin D deficiency 7. Elevated liver enzymes 8. Sleep disorder, narcolepsy 9. Chronic pain PLAN: 1. Multivitamin were reviewed with goal of thiamine supplement. 2. For activity, recommend exercise video. 3. Will need repeat bariatric panel she is 4 months out 4. Follow-up 6 weeks postprocedure otherwise for March 2018 Objective - Vital Signs Vital signs: Vital Signs Temp 97.5 F L 03/14/18 13:11 Pulse 80 01/14/18 13:11 Resp 16 01/14/18 13:11 BP 119/85 01/14/18 13:11 Pulse Ox Intake & Output 01/13/18 01/14/18 01/14/18 18:59 06:59 18:59 Weight 92.079 kg
== END | disposition home or self-care (01) ==
LOC: BARWHC3 11:57
PROVIDERS: ATTEND Surgery Plastic and Reconstructive Surgery
DX: Z48.815 Encounter for surgical aftercare following surgery on the digestive system (principal); G89.29 Other chronic pain; M54.5 Low back pain; K59.00 Constipation, unspecified; E66.01 Morbid (severe) obesity due to excess calories; E51.9 Thiamine deficiency, unspecified; N25.81 Secondary hyperparathyroidism of renal origin; E55.9 Vitamin D deficiency, unspecified; G47.419 Narcolepsy without cataplexy; R74.8 Abnormal levels of other serum enzymes; Z68.34 Body mass index [BMI] 34.0-34.9, adult; Z98.84 Bariatric surgery status
CPT/HCPCS: 99211

== ENCOUNTER → 2018-03-18 | Outpatient (CLI) | payer MEDICARE ==
[2018-03-18 13:49] VITALS: BP 139/64; PULSE 59; TEMP 97.8; BMI 34.7
--- NOTE | 2018-03-18 15:14 | P.PN ---
Subjective Progress Note Date: 03/18/18 DATE OF SERVICE: 03/18/2018 She comes into today complaining of an occassional bulge above the pubis. She has constipation. No nausea or vomiting. She is looking to get more active. Her weight is stable. She wants more weight loss. No increase fatigue. She is looking to walk around. No dysphagia to foods. Today she comes in 202.3. Vital Signs Temp 97.8 F 03/18/18 13:46 Pulse 59 L 03/18/18 13:46 Resp BP 139/64 03/18/18 13:46 Pulse Ox Intake & Output 03/17/18 03/18/18 03/18/18 18:59 06:59 18:59 Weight 91.852 kg PLAN: 1. Recommend re-check of labs as she is 6 months out. 2. Exercise increase. 3. She has mild depression and is seasonal. 4. Encourage to walk in the sun. 5. Follow-up in June 2018 follow-up. DATE OF SERVICE: 01/14/2018 CHIEF COMPLAINT: Follow-up gastric bypass. HISTORY OF PRESENT ILLNESS: Paula Mandel is a 57-year-old female who is status gastric bypass, 09/08/2017. She is 4 months postop. She reports chronic lower back pain. Her weight has overall plateau. She reports increased constipation. She also reports difficulty with recent weight loss. She reports minimal activity secondary to the current weather conditions. Her highest weight was 299 pounds. Her present weight is 203 pounds. She has lost 96 pounds, lifetime. Her weight has been unchanged in the past 1 month. Her body mass index is reduced from 51.4 down to 34.8. Her ideal body weight is 144 pounds. PHYSICAL EXAM: VITAL SIGNS: 5 feet 4 inches, 203 pounds. Body mass index 34.8. Vital Signs Temp 97.5 F L 01/14/18 13:11 Pulse 80 01/14/18 13:11 Resp 16 01/14/18 13:11 BP 119/85 01/14/18 13:11 Pulse Ox ABDOMEN: Soft, nontender, nondistended. No incisional hernias. GENERAL: Well-developed, pleasant female in no acute distress. MUSCULOSKELETAL: No clubbing, cyanosis, or edema. HEENT: No sclera icterus. Extraocular movements grossly intact. Moist buccal mucosa. Head is atraumatic, normocephalic. No nasal drainage. NECK: Supple without lymphadenopathy. No JV distention. CHEST: Non-labored respirations and equal bilateral excursions. CARDIOVASCULAR: Regular rate and rhythm. Palpable 2+ radial pulses. NEUROLOGIC: No focal or lateralizing signs. SKIN: Well perfused. Good skin turgor. ASSESSMENT: 1. Morbid obesity due to excess calories. 2. Body mass index reduced from 51.4 down to 34.8. 3. Status post gastric bypass 4. Thiamine deficiency 5. Secondary hyperparathyroidism. 6. Vitamin D deficiency 7. Elevated liver enzymes 8. Sleep disorder, narcolepsy 9. Chronic pain PLAN: 1. Multivitamin were reviewed with goal of thiamine supplement. 2. For activity, recommend exercise video. 3. Will need repeat bariatric panel she is 4 months out 4. Follow-up 6 weeks postprocedure otherwise for March 2018
== END | disposition home or self-care (01) ==
LOC: BARWHC3 11:55
PROVIDERS: ATTEND Surgery Plastic and Reconstructive Surgery
DX: Z09 Encounter for follow-up examination after completed treatment for conditions other than malignant neoplasm (principal); E66.01 Morbid (severe) obesity due to excess calories; L02.215 Cutaneous abscess of perineum; K59.00 Constipation, unspecified; G89.29 Other chronic pain; M54.5 Low back pain; E51.9 Thiamine deficiency, unspecified; N25.81 Secondary hyperparathyroidism of renal origin; E55.9 Vitamin D deficiency, unspecified; R74.8 Abnormal levels of other serum enzymes; G47.419 Narcolepsy without cataplexy; Z98.84 Bariatric surgery status; Z68.34 Body mass index [BMI] 34.0-34.9, adult
CPT/HCPCS: 97803; G0463; 99211

== ENCOUNTER → 2018-06-03 | Outpatient (CLI) | payer MEDICARE ==
[2018-06-03 12:19] LABS: HCT 47.8 % (34.0-46.0); MCHC 31.5 g/dL (31.0-37.0); MCV 98.6 fL (80.0-100.0); Mean Platelet Volume 7.9; Platelet Count 202 k/uL (150-450); RBC 4.85 m/uL (3.80-5.40); RDW 13.5 % (11.5-15.5); WBC 5.8 k/uL (3.8-10.6)
[2018-06-03 12:39] LABS: ALT 34 U/L (9-52); AST 23 U/L (14-36); Albumin 4.1 g/dL (3.5-5.0); Alkaline Phosphatase 113 U/L (38-126); Anion Gap 6 mmol/L; Blood Urea Nitrogen 18 mg/dL (7-17); Calcium 9.7 mg/dL (8.4-10.2); Carbon Dioxide 24 mmol/L (22-30); Chloride 113 mmol/L (98-107); Cholesterol 214 mg/dL (<200); Glucose 90 mg/dL (74-99); HDL Cholesterol 65 mg/dL (40-60); LDL Cholesterol,Calculated 122 mg/dL (0-99); Phosphorus 3.6 mg/dL (2.5-4.5); Potassium 4.5 mmol/L (3.5-5.1); Sodium 143 mmol/L (137-145); Total Bilirubin 0.4 mg/dL (0.2-1.3); Total Protein 6.6 g/dL (6.3-8.2); Triglycerides 135 mg/dL (<150)
[2018-06-03 12:59] VITALS: BP 108/66; PULSE 68; RESP 20; TEMP 97.6; BMI 33.7
--- NOTE | 2018-06-03 13:58 | P.PN ---
Subjective Progress Note Date: 06/03/18 HPI: She is not eating enough protein. She is starting to smoke again. She reports not following the plan. She is not taking her multiviatmin. ABDOMEN: No hernia PLAN: 1. Recommend protein additives. 2. Take multivitamin. Objective - Vital Signs Vital signs: Vital Signs Temp 97.6 F 06/03/18 12:54 Pulse 68 06/03/18 12:54 Resp 20 06/03/18 12:54 BP 108/66 06/03/18 12:54 Pulse Ox Intake & Output 06/02/18 06/03/18 06/03/18 18:59 06:59 18:59 Weight 89.131 kg - Labs CBC & Chem 7: 06/03/18 11:46 06/03/18 11:46 Labs: Abnormal Lab Results - Last 24 Hours (Table) 06/03/18 06/03/18 Range/Units 11:46 11:46 Hct 47.8 H (34.0-46.0) % Chloride 113 H (98-107) mmol/L BUN 18 H (7-17) mg/dL Cholesterol 214 H (<200) mg/dL LDL Cholesterol, Calc 122 H (0-99) mg/dL HDL Cholesterol 65 H (40-60) mg/dL
[2018-06-03 18:08] LABS: Iron Saturation 40.96 (12.00-45.00)
[2018-06-03 18:21] LABS: Vitamin D 25 Hydroxy 23.1 ng/mL (30.0-100.0)
[2018-06-03 18:29] LABS: Parathyroid Hormone Intact 66.7 pg/mL (14.0-72.0)
[2018-06-03 18:41] LABS: Folate, Serum 14.7 ng/mL
[2018-06-03 19:48] LABS: Hemoglobin A1C 5.4 % (4.0-6.0)
[2018-06-04 11:50] LABS: Vitamin B1 58 ug/L (38-122)
[2018-06-05 05:53] LABS: Vitamin A 45 ug/dL (38-106)
[2018-06-05 11:12] LABS: Zinc, Serum 108 ug/dL (60-130)
== END | disposition home or self-care (01) ==
LOC: BARWHC3 11:33
PROVIDERS: ATTEND Surgery Plastic and Reconstructive Surgery
DX: E66.01 Morbid (severe) obesity due to excess calories (principal); E21.1 Secondary hyperparathyroidism, not elsewhere classified; E89.1 Postprocedural hypoinsulinemia; D50.9 Iron deficiency anemia, unspecified; K90.9 Intestinal malabsorption, unspecified; E55.9 Vitamin D deficiency, unspecified; K76.9 Liver disease, unspecified; N19 Unspecified kidney failure; K50.90 Crohn's disease, unspecified, without complications; Z68.33 Body mass index [BMI] 33.0-33.9, adult
CPT/HCPCS: 84255; 84134; 84425; 80061; 80053; 82607; 82728; 82525; 82746; 83540; 83550; 83735; 84100; 84443; 84590; 84630; 85027; 85610; 85730; 82306; 83970; 83036; 97803; G0463; 99211

== ENCOUNTER → 2018-07-24 | Outpatient (CLI) | payer MEDICARE ==
[2018-07-24 13:15] LABS: HCT 47.8 % (34.0-46.0); HGB 15.4 gm/dL (11.4-16.0); MCH 30.7 pg (25.0-35.0); MCHC 32.1 g/dL (31.0-37.0); MCV 95.5 fL (80.0-100.0); Mean Platelet Volume 8.2; Platelet Count 244 k/uL (150-450); RBC 5.01 m/uL (3.80-5.40); RDW 13.3 % (11.5-15.5); WBC 6.3 k/uL (3.8-10.6)
[2018-07-24 13:27] LABS: Partial Thromboplastin Time 22.5 sec (22.0-30.0); Prothrombin Time 9.7 sec (9.0-12.0)
[2018-07-24 13:56] LABS: ALT 27 U/L (9-52); AST 32 U/L (14-36); Albumin 3.8 g/dL (3.5-5.0); Alkaline Phosphatase 108 U/L (38-126); Anion Gap 6 mmol/L; Blood Urea Nitrogen 15 mg/dL (7-17); Calcium 9.7 mg/dL (8.4-10.2); Carbon Dioxide 28 mmol/L (22-30); Chloride 109 mmol/L (98-107); Cholesterol 226 mg/dL (<200); Glucose 83 mg/dL (74-99); HDL Cholesterol 59 mg/dL (40-60); LDL Cholesterol,Calculated 139 mg/dL (0-99); Potassium 4.8 mmol/L (3.5-5.1); Sodium 143 mmol/L (137-145); Total Bilirubin 0.4 mg/dL (0.2-1.3); Total Protein 6.5 g/dL (6.3-8.2); Triglycerides 140 mg/dL (<150)
[2018-07-24 19:21] LABS: Iron Saturation 27.14 (12.00-45.00)
[2018-07-24 19:29] LABS: Vitamin D 25 Hydroxy 16.2 ng/mL (30.0-100.0)
[2018-07-24 19:33] LABS: Parathyroid Hormone Intact 71.7 pg/mL (14.0-72.0)
[2018-07-24 20:01] LABS: Folate, Serum 12.4 ng/mL
[2018-07-24 22:20] LABS: Hemoglobin A1C 5.3 % (4.0-6.0)
[2018-07-27 13:44] LABS: Zinc, Serum 81 ug/dL (60-130)
[2018-07-28 05:46] LABS: Vitamin B1 49 ug/L (38-122)
[2018-07-29 11:06] LABS: Selenium 123 mcg/L (63-160)
== END | disposition home or self-care (01) ==
LOC: LABWHC1 12:32
PROVIDERS: ATTEND Surgery Plastic and Reconstructive Surgery
DX: E66.01 Morbid (severe) obesity due to excess calories (principal); E21.1 Secondary hyperparathyroidism, not elsewhere classified; E89.1 Postprocedural hypoinsulinemia; D50.9 Iron deficiency anemia, unspecified; K90.9 Intestinal malabsorption, unspecified; E55.9 Vitamin D deficiency, unspecified; K76.9 Liver disease, unspecified; N19 Unspecified kidney failure; K50.90 Crohn's disease, unspecified, without complications
CPT/HCPCS: 36415; 80053; 80061; 82306; 82525; 82607; 82728; 82746; 83036; 83540; 83550; 83735; 83970; 84100; 84134; 84255; 84425; 84443; 84590; 84630; 85027; 85610; 85730

== ENCOUNTER 2018-09-16 12:11 | Observation (INO) | payer MEDICARE ==
[2018-09-16] MEDS ORDERED: NITROGLYCERIN OINT 1 INCH/GM PACKET TOPICAL STA (12:16)
--- NOTE | 2018-09-16 12:22 | ED ---
General Adult HPI - General Stated complaint: Chest Discomfort Time Seen by Provider: 09/16/18 12:11 Source: RN notes reviewed - History of Present Illness Initial comments: This a 57-year-old female presents emergency Department with a past medical history significant for smoking high cholesterol and family history of heart disease. Patient comes in today because he had 3 episodes of chest pain over the last day. Patient states it occurred yesterday last about 2 hours and occurred last night lasted about 2 hours and it started to occur again today and she called EMS when the came to her house they gave her an aspirin and put her on oxygen the pain is much improved at this point time. Patient states the pain last evening radiated to her left arm as it did again today. Patient states she was not diaphoretic she was mildly short of breath she denied any nausea. Patient denies any abdominal pain patient denies any vomiting or diarrhea recently. Patient denies any recent fever chills or cough. Patient denied any episode of lightheadedness dizziness or near-syncopal episode. - Related Data Home Medications Medication Instructions Recorded Confirmed HYDROcodone/APAP 7.5-325MG [[place] 1 tab PO Q6HR PRN 09/16/18 09/16/18 7.5-325] Allergies Allergy/AdvReac Type Severity Reaction Status Date / Time No Known Allergies Allergy Verified 09/16/18 12:36 Review of Systems ROS Statement: Those systems with pertinent positive or pertinent negative responses have been documented in the HPI. ROS Other: All systems not noted in ROS Statement are negative. Past Medical History Past Medical History: Asthma, Chest Pain / Angina, COPD, Deep Vein Thrombosis ( DVT), GERD/Reflux, Hearing Disorder / Deafness, Hyperlipidemia, Osteoarthritis ( OA), Pneumonia, Pulmonary Embolus (PE), Respiratory Disorder Additional Past Medical History / Comment(s): states "having difficulty swallowing",Chronic Bronchitis. NARCOLEPSY. "NERVE DAMAGE BACK DOWN TO KNEES, FALLS OCC," CHRONIC BACK PAIN. SCIATICA, MULTIPLE HX DVT, PE, KASHIA bilaterally. 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 Acosta; patient insisitent upon relying solely on OTC Thiamine tablets). History of Any Multi-Drug Resistant Organisms: None Reported Past Surgical History: Bariatric Surgery, Bladder Surgery, Section, Cholecystectomy, Hysterectomy, Orthopedic Surgery Additional Past Surgical History / Comment(s): 09/18/16 Panniculectomy, repair incarcerated ventral hernia, adjustment lap band, port revision. Other surgical hx: 2008 Lap Band; ORIF RT Ankle- PLATE, SCREWS. lap band removal 06-06-17 gastric bypass 09-08-17 Past Anesthesia/Blood Transfusion Reactions: No Reported Reaction Past Psychological History: Anxiety Additional Psychological History / Comment(s): . Smoking Status: Light tobacco smoker Past Alcohol Use History: None Reported Additional Past Alcohol Use History / Comment(s): quit smoking May 2016, smoked for 40 yrs, 2PPD Past Drug Use History: None Reported - Past Family History Father History Unknown: Yes Family Medical History: Cancer Mother History Unknown: Yes Family Medical History: Cancer, Congestive Heart Failure (CHF), COPD General Exam - General Exam Comments Initial Comments: GENERAL: Patient is well-developed and well-nourished. Patient is nontoxic and well- hydrated and is in mild distress. ENT: Neck is soft and supple. No significant lymphadenopathy is noted. Oropharynx is clear. Moist mucous membranes. Neck has full range of motion without eliciting any pain. EYES: The sclera were anicteric and conjunctiva were pink and moist. Extraocular movements were intact and pupils were equal round and reactive to light. Eyelids were unremarkable. PULMONARY: Unlabored respirations. Good breath sounds bilaterally. No audible rales rhonchi or wheezing was noted. CARDIOVASCULAR: There is a regular rate and rhythm without any murmurs gallops or rubs. ABDOMEN: Soft and nontender with normal bowel sounds. No palpable organomegaly was noted. There is no palpable pulsatile mass. SKIN: Skin is clear with no lesions or rashes and otherwise unremarkable. NEUROLOGIC: Patient is alert and oriented x3. Cranial nerves II through XII are grossly intact. Motor and sensory are also intact. Normal speech, volume and content. Symmetrical smile. MUSCULOSKELETAL: Normal extremities with adequate strength and full range of motion. No lower extremity swelling or edema. No calf tenderness. LYMPHATICS: No significant lymphadenopathy is noted PSYCHIATRIC: Normal psychiatric evaluation. Course Vital Signs 09/16/18 12:25 Pulse Rate 68 Respiratory 20 Rate Blood Pressure 143/96 O2 Sat by Pulse 98 Oximetry Medical Decision Making - Medical Decision Making EKG shows sinus rhythm with PVC at 69 bpm WV interval is 142 QRS is 74 QT interval 412 QTC is 441 per patient's EKG shows no ST segment elevation or depression or T wave abnormalities are noted. Patient is trigeminy. Patient has had 3 episodes of chest pain and I diagnosed with unstable angina. I started the patient on heparin. I spoke with Dr. conner he agreed to admit the patient admitted the patient I wrote admitting orders. I consulted cardiology I continue the heparin and aspirin and Nitropaste on the floor. Patient states Nitropaste here has taken away her pain completely. - Lab Data Result diagrams: 09/16/18 13:07 09/16/18 13:07 Lab Results 09/16/18 09/16/18 09/16/18 Range/Units 13:07 13:07 13:07 WBC 6.0 (3.8-10.6) k/uL RBC 5.20 (3.80-5.40) m/uL Hgb 16.0 (11.4-16.0) gm/dL Hct 50.2 H (34.0-46.0) % MCV 96.5 (80.0-100.0) fL MCH 30.7 (25.0-35.0) pg MCHC 31.8 (31.0-37.0) g/dL RDW 13.4 (11.5-15.5) % Plt Count 218 (150-450) k/uL Neutrophils % 56 % Lymphocytes % 33 % Monocytes % 6 % Eosinophils % 2 % Basophils % 1 % Neutrophils # 3.4 (1.3-7.7) k/uL Lymphocytes # 2.0 (1.0-4.8) k/uL Monocytes # 0.3 (0-1.0) k/uL Eosinophils # 0.1 (0-0.7) k/uL Basophils # 0.1 (0-0.2) k/uL PT (9.0-12.0) sec INR (<1.2) APTT (22.0-30.0) sec Sodium 141 (137-145) mmol/L Potassium 4.8 (3.5-5.1) mmol/L Chloride 107 (98-107) mmol/L Carbon Dioxide 27 (22-30) mmol/L Anion Gap 7 mmol/L BUN 20 H (7-17) mg/dL Creatinine 0.68 (0.52-1.04) mg/dL Est GFR (CKD-EPI)AfAm >90 (>60 ml/min/1.73 sqM) Est GFR (CKD-EPI)NonAf >90 (>60 ml/min/1.73 sqM) Glucose 87 (74-99) mg/dL Calcium 9.9 (8.4-10.2) mg/dL Magnesium 2.0 (1.6-2.3) mg/dL Total Bilirubin 0.4 (0.2-1.3) mg/dL AST 28 (14-36) U/L ALT 30 (9-52) U/L Alkaline Phosphatase 119 (38-126) U/L Total Creatine Kinase 41 (30-135) U/L CK-MB (CK-2) 0.4 (0.0-2.4) ng/mL CK-MB (CK-2) Rel Index 1.0 Troponin I <0.012 (0.000-0.034) ng/mL Total Protein 7.1 (6.3-8.2) g/dL Albumin 4.2 (3.5-5.0) g/dL 09/16/18 Range/Units 13:07 WBC (3.8-10.6) k/uL RBC (3.80-5.40) m/uL Hgb (11.4-16.0) gm/dL Hct (34.0-46.0) % MCV (80.0-100.0) fL MCH (25.0-35.0) pg MCHC (31.0-37.0) g/dL RDW (11.5-15.5) % Plt Count (150-450) k/uL Neutrophils % % Lymphocytes % % Monocytes % % Eosinophils % % Basophils % % Neutrophils # (1.3-7.7) k/uL Lymphocytes # (1.0-4.8) k/uL Monocytes # (0-1.0) k/uL Eosinophils # (0-0.7) k/uL Basophils # (0-0.2) k/uL PT 9.8 (9.0-12.0) sec INR 1.0 (<1.2) APTT 22.5 (22.0-30.0) sec Sodium (137-145) mmol/L Potassium (3.5-5.1) mmol/L Chloride (98-107) mmol/L Carbon Dioxide (22-30) mmol/L Anion Gap mmol/L BUN (7-17) mg/dL Creatinine (0.52-1.04) mg/dL Est GFR (CKD-EPI)AfAm (>60 ml/min/1.73 sqM) Est GFR (CKD-EPI)NonAf (>60 ml/min/1.73 sqM) Glucose (74-99) mg/dL Calcium (8.4-10.2) mg/dL Magnesium (1.6-2.3) mg/dL Total Bilirubin (0.2-1.3) mg/dL AST (14-36) U/L ALT (9-52) U/L Alkaline Phosphatase (38-126) U/L Total Creatine Kinase (30-135) U/L CK-MB (CK-2) (0.0-2.4) ng/mL CK-MB (CK-2) Rel Index Troponin I (0.000-0.034) ng/mL Total Protein (6.3-8.2) g/dL Albumin (3.5-5.0) g/dL Critical Care Time Critical Care Time: Yes Total Critical Care Time: 35 Disposition Clinical Impression: Unstable angina Disposition: ADMITTED IP TO THIS [facility] Referrals: None,Stated [REFERRING] - 1-2 days Time of Disposition: 14:54
--- NOTE | 2018-09-16 13:30 | XR ---
EXAMINATION TYPE: XR chest 2V DATE OF EXAM: 09/16/2018 COMPARISON: Chest x-ray September 10, 2017. CTA chest December 08, 2014. HISTORY: Chest pain for 2 days. TECHNIQUE: Frontal and lateral views of the chest are obtained. FINDINGS: There is background chronic emphysematous change with persistent lateral right basilar [place] favoring scarring and/or atelectasis. There is new small right pleural effusion seen best on lat eral view. There is lateral right mid to lower lung scarring redemonstrated. No pneumothorax is seen bilaterally The cardiac silhouette size is stable and upper limits of normal. The osseous structure s are intact. Cholecystectomy clips are noted on lateral view. Suspect interval removal of lap band d evice epigastric region. IMPRESSION: New small right pleural effusion or fluid collection with worsening right lateral basila r atelectasis and/or scarring on background chronic emphysematous change.
[2018-09-16 13:37] LABS: Basophils # (A) 0.1 k/uL (0-0.2); Basophils % (A) 1 %; Eosinophils # (A) 0.1 k/uL (0-0.7); Eosinophils % (A) 2 %; HCT 50.2 % (34.0-46.0); Lymphocytes % (A) 33 %; MCH 30.7 pg (25.0-35.0); MCHC 31.8 g/dL (31.0-37.0); MCV 96.5 fL (80.0-100.0); Mean Platelet Volume 8.5; Monocytes # (A) 0.3 k/uL (0-1.0); Monocytes % (A) 6 %; Neutrophils # (A) 3.4 k/uL (1.3-7.7); Neutrophils % (A) 56 %; Platelet Count 218 k/uL (150-450); RDW 13.4 % (11.5-15.5)
[2018-09-16 13:41] LABS: Partial Thromboplastin Time 22.5 sec (22.0-30.0); Prothrombin Time 9.8 sec (9.0-12.0)
[2018-09-16 13:53] LABS: ALT 30 U/L (9-52); AST 28 U/L (14-36); Albumin 4.2 g/dL (3.5-5.0); Alkaline Phosphatase 119 U/L (38-126); Anion Gap 7 mmol/L; Blood Urea Nitrogen 20 mg/dL (7-17); Calcium 9.9 mg/dL (8.4-10.2); Carbon Dioxide 27 mmol/L (22-30); Chloride 107 mmol/L (98-107); Glucose 87 mg/dL (74-99); Potassium 4.8 mmol/L (3.5-5.1); Sodium 141 mmol/L (137-145); Total Bilirubin 0.4 mg/dL (0.2-1.3); Total Protein 7.1 g/dL (6.3-8.2)
[2018-09-16 13:57] LABS: Creatine Kinase 41 U/L (30-135)
[2018-09-16 14:11] LABS: Creatine Kinase MB 0.4 ng/mL (0.0-2.4); Troponin I <0.012 ng/mL (0.000-0.034)
[2018-09-16] MEDS ORDERED: HEPARIN SODIUM,PORCINE 5,000 UNIT/ML 1 ML VIAL IV ONE (14:27)
[2018-09-16] MEDS ORDERED: HEPARIN SOD,PORK IN 0.45% NACL 25,000 UNIT in 0.45% NACL 1 500ML.BAG IV SCH (14:30)
[2018-09-16] MEDS ORDERED: NITROGLYCERIN SL TABS 0.4 MG TAB SUBLINGUAL PRN (14:54)
[2018-09-16] MEDS ORDERED: HYDROcodone/APAP 7.5-325MG 1 EACH TAB PO ONE (15:19)
[2018-09-16 17:23] VITALS: RESP 18
[2018-09-16 19:20] LABS: Creatine Kinase 33 U/L (30-135)
[2018-09-16 19:31] LABS: Creatine Kinase MB 0.3 ng/mL (0.0-2.4); Troponin I <0.012 ng/mL (0.000-0.034)
[2018-09-16] MEDS: NITROGLYCERIN OINT 1 INCH/GM PACKET TOPICAL SCH ×2 (19:52→23:13)
[2018-09-16] MEDS: HYDROcodone/APAP 7.5-325MG 1 EACH TAB PO PRN (21:20)
[2018-09-16] MEDS ORDERED: MELATONIN 5 MG TABLET PO SCH (23:00)
--- NOTE | 2018-09-17 00:44 | HP ---
HISTORY AND PHYSICAL DATE OF ADMISSION: 09/16/2018 PRESENTING COMPLAINT: Chest pain. HISTORY OF PRESENTING COMPLAINT: This is a 57-year-old patient who follows with Dr. Francesco Pablo. Chronic stable medical conditions include COPD, GERD, osteoarthritis, narcolepsy. The patient has known B12 deficiency, but does not wish to take any medication for the same. The patient has been a long-standing smoker. Yesterday she developed over 2 hours of anterior chest wall pain, felt like her heart was pounding, beating hard. The patient did feel a bit cold and clammy, no dizziness., no lightheaded. The episode lasted for a good 2 hours. Late in the evening she had another episode. This time the pain went down the left arm. She had another episode today and decided to come in. No prior cardiac history. The patient has had DVT and PE in the past she says. She has been taken off anticoagulation, does not remember why and when. Admitted for unstable angina. REVIEW OF SYSTEMS: CONSTITUTIONAL: None. HEENT: None. RESPIRATORY: As above. CARDIOVASCULAR: As above. GASTROINTESTINAL: Heartburn. GENITOURINARY: None. MUSCULOSKELETAL: Arthritic pain in some joints. DERMATOLOGICAL, HEMATOLOGIC, LYMPHATIC: None. PSYCHIATRY: None. NEUROLOGICAL: None. PAST MEDICAL HISTORY: COPD, DVT, GERD, hard of hearing, especially in the right ear, hyperlipidemia, osteoarthritis, PE, chronic bronchitis, chronic back pain, sciatica, B12 deficiency. Does not want to receive vitamin injection or supplements. PAST SURGICAL HISTORY: Bariatric surgery, Daniel-en-Y bladder surgery, , cholecystectomy, panniculectomy, repair of incarcerated ventral hernia, adjustment lap band, port revision, ORIF of the right ankle with plate and screws, lap band was removed in 2016, gastric bypass in September 2017. PSYCH HISTORY: Anxiety, claustrophobia. SOCIAL HISTORY: The patient has been smoking for close to over 40 years and now down to a pack over a week, was smoking up to 2 packs a day. No alcohol. Lives with her . FAMILY HISTORY: Cancer type unknown. HOME MEDICATIONS: [place] 7.5 q.6h p.r.n. ALLERGIES: None. PHYSICAL EXAMINATION: Temperature 97.6, pulse 71, respiratory 18, blood pressure 113/32, pulse ox 96% on room air. GENERAL APPEARANCE: Well-built, BMI 34. Lying in bed, awake. EYES: Pupils are equal. Conjunctivae normal. HEENT: External nose and ears normal. Oral cavity normal. NECK: JVD not raised. Mass not palpable. Respiratory effort normal. LUNGS: Decreased breath sounds. CARDIOVASCULAR: First and second sounds normal. No edema. ABDOMEN: Soft and nontender. Liver and spleen is not palpable. LYMPHATIC: No lymph node palpable. PSYCHIATRY: Alert and oriented x3. Mood and affect normal. NEUROLOGICAL: Pupils equal. Cranial nerves grossly intact. Power and sensation grossly intact. INVESTIGATIONS: White count 6, hemoglobin 16, potassium 4.8, BUN 20, creatinine 0.6. Troponin times 2 negative. EKG normal sinus rhythm with PVCs. Chest x-ray personally reviewed by me shows some emphysematous changes and possible slight small pleural effusion. ASSESSMENT: 1. Possible unstable angina. The patient's cardiac risk factors include smoking. 2. Primary osteoarthritis. 3. Obesity, BMI 34. 4. Prior history of Daniel-en-Y gastric bypass surgery. Patient has lost over 100 pounds. 5. Chronic narcolepsy. 6. Chronic vitamin B12 injection. The patient does not want to take parenteral supplements. PLAN: The patient is started on aspirin and IV heparin. Cardiology was consulted. The patient will need a stress test. The patient advised against smoking. Smoking cessation counseling was done with the patient. More than 3 minutes was spent on counseling. DARIAN / MORENA: [id number] /
[2018-09-17] MEDS: HYDROcodone/APAP 7.5-325MG 1 EACH TAB PO PRN ×2 (02:28→09:23)
[2018-09-17 02:40] LABS: Creatine Kinase 29 U/L (30-135)
[2018-09-17 02:53] LABS: Creatine Kinase MB 0.5 ng/mL (0.0-2.4); Troponin I <0.012 ng/mL (0.000-0.034)
[2018-09-17] MEDS: NITROGLYCERIN OINT 1 INCH/GM PACKET TOPICAL SCH (04:32)
[2018-09-17 07:58] LABS: Cholesterol 210 mg/dL (<200); HDL Cholesterol 63 mg/dL (40-60); LDL Cholesterol,Calculated 123 mg/dL (0-99); Triglycerides 118 mg/dL (<150)
[2018-09-17 08:23] VITALS: TEMP 97.5
[2018-09-17] MEDS ORDERED: ASPIRIN 325 MG TAB PO SCH (09:00)
[2018-09-17] MEDS ORDERED: DOBUTamine DRIP for NUC MED 500 MG in DEXTROSE/WATER 1 250ML.BAG IV ONE (09:52)
[2018-09-17] MEDS ORDERED: ATROPINE SULFATE 0.1 MG/ML 10ML SYRINGE ONE (11:20)
[2018-09-17] MEDS ORDERED: METOPROLOL TARTRATE 5 MG/5 ML VIAL IVP ONE (11:20)
[2018-09-17] MEDS ORDERED: TERBUTALINE FOR EXTRAVASATION 1 MG/ML VIAL SQ STA (11:26)
[2018-09-17 12:09] VITALS: BP 106/69; PULSE 92
--- NOTE | 2018-09-17 12:20 | ECHOF ---
Referral Reason: MEASUREMENTS -------- HEIGHT: 162.6 cm WEIGHT: 90.7 kg BP: IVSd: 1.3 cm (0.6 - 1.1) LVIDd: 2.6 cm (3.9 - 5.3) LVPWd: 1.4 cm (0.6 - 1.1) IVSs: 1.7 cm LVIDs: 2.0 cm LVPWs: 1.6 cm Ao Diam: 3.0 cm (2.0 - 3.7) AV Cusp: 1.9 cm (1.5 - 2.6) LA Diam: 3.2 cm (2.7 - 3.8) MV EXCURSION: 19.089 mm (> 18.000) MV EF SLOPE: 59 mm/s (70 - 150) EPSS: 0.4 cm MV E Vasiliy: 0.63 m/s MV DecT: 280 ms MV A Vasiliy: 0.74 m/s MV E/A Ratio: 0.84 RAP: 5.00 mmHg RVSP: 17.86 mmHg FINDINGS -------- Sinus rhythm. This was a technically good study. The left ventricular size is normal. There is mild concentric left ventricular hypertrophy. Overa ll left ventricular systolic function is normal with, an EF between 55 - 60 %. The right ventricle is normal in size and function. The left atrium is normal in size. The right atrium is normal in size. The aortic valve is trileaflet, and appears structurally normal. No aortic stenosis or regurgitation. There is trace mitral regurgitation. Trace tricuspid regurgitation present. The right ventricular systolic pressure, as measured by Dopp ler, is 17.86mmHg. Pulmonic valve appears structurally normal. The aortic root size is normal. The pericardium is normal. CONCLUSIONS -------- 1. Sinus rhythm. 2. This was a technically good study. 3. The left ventricular size is normal. 4. There is mild concentric left ventricular hypertrophy. 5. Overall left ventricular systolic function is normal with, an EF between 55 - 60 %. 6. The right ventricle is normal in size and function. 7. The left atrium is normal in size. 8. The right atrium is normal in size. 9. The aortic valve is trileaflet, and appears structurally normal. No aortic stenosis or regurgitati on. 10. There is trace mitral regurgitation. 11. Trace tricuspid regurgitation present. 12. The right ventricular systolic pressure, as measured by Doppler, is 17.86mmHg. 13. Pulmonic valve appears structurally normal. 14. The aortic root size is normal. 15. The pericardium is normal. EXERCISE MANAGER: Lynda Monsivais RDCS
[2018-09-17] MEDS ORDERED: NICOTINE 7MG/24HR PATCH TRANSDERM SCH (12:30)
--- NOTE | 2018-09-17 13:09 | ECHOS ---
STRESS ECHOCARDIOGRAM INDICATIONS: Chest pain. MEDICATIONS: Hydrocodone. BASELINE HEART RATE: 68 BASELINE BLOOD PRESSURE: 165/49 MAXIMUM HEART RATE: 146 MAXIMUM BLOOD PRESSURE: 207/85 85% MPHR: 140 100% MPHR: 165 MAXIMUM STAGE REACHED: II TOTAL EXERCISE TIME: 6:45 CLINICAL INFORMATION: STRESS DATA: Pretesting physical examination showed a heart rate of 68, pressure is 165/49 mmHg. Baseline EKG showed sinus mechanism. The patient's dobutamine infusion at a dose of 10 mcg/kg per minute per minute was initiated and increased to 30 mcg/kg per minute per protocol. Max heart rate was 146 which is about 88% of maximum predicted heart rate. Maximum blood pressure was 207/85 mm Hg. Clinically, the patient did not have any symptoms of chest pain or discomfort during the testing or on recovery and the EKG did not show any significant ST or T-wave abnormalities concerning for ischemia. ECHOCARDIOGRAM IMAGES: On echocardiogram images from parasternal long axis view, parasternal short axis view, apical 4 chamber and apical 2 chamber view were obtained as the baseline images, at low dose dobutamine infusion, at the peak heart rate as well as on recovery. The echocardiogram images overall did not show any significant wall motion abnormalities concerning for ischemia. CONCLUSION: 1. Normal EKG in response to dobutamine. 2. Normal echocardiogram in response to dobutamine. 3. Essentially normal dobutamine stress echocardiogram for the patient. MMODL / IJN: [id number] /
--- NOTE | 2018-09-17 13:25 | P.CRDCN ---
History of Present Illness History of present illness: This is a pleasant 57-year-old female past medical history significant for COPD, hyperlipidemia, history of PE and DVT, gastroesophageal reflux disease and gastric bypass surgery. She denies history of coronary artery disease, hypertension or diabetes mellitus. She does not follow with a social service liaison for any reason. We have been asked to see her in consultation for chest pain. She states 2 nights ago while she was sleeping she was woken up out of sleep with a heavy pressure sensation in the mid-sternal region with radiation into the left shoulder and arm. No radiation to the back, neck or jaw. She denies associated shortness of breath, nausea, vomiting, palpitations, dizziness or palpitations. This lasted for 2 hours and went away on its own. Then yesterday during the day she felt the discomfort again in her chest with radiation into the left shoulder associated with mild light-headedness. This time she was again at rest. She called EMS and was given aspirin and oxygen which made the symptoms subside. No further symptoms since arriving to the hospital. EKG reveals sinus mechanism with frequent PVCs, no acute ST or T wave abnormalities noted. Chest x-ray evidence of new small right pleural effusion with worsening right lateral basilar atelectasis and the ground emphysematous changes. Laboratory data reviewed, WBC 6, hemoglobin 16, platelets 218, sodium 141, potassium 4.8, creatinine 0.68, magnesium 2.0, cardiac enzymes negative 3, LDL 123, HDL 63. Current medications include [place] only. Most recent stress test performed 2014 was negative for stress-induced cardiac ischemia. Echocardiogram obtained reveals preserved left ventricular systolic function with ejection fraction 55-60%. At the time of my exam: CONSTITUTIONAL: Denies fever. Denies chills. EYES: Denies blurred vision. Denies vision changes. Denies eye pain. EARS, NOSE, MOUTH & THROAT: Denies headache. Denies sore throat. Denies ear pain. CARDIOVASCULAR: Denies chest pain. Denies shortness of breath. Denies orthopnea. Denies PND. Denies palpitations. RESPIRATORY: Denies cough. GASTROINTESTINAL: Denies abdominal pain. Denies diarrhea. Denies constipation. Denies nausea. Denies vomiting. MUSCULOSKELETAL: Denies myalgias. INTEGUMENTARY: Denies pruitis. Denies rash. NEUROLOGIC: Denies numbness. Denies tingling. Denies weakness. PSYCHIATRIC: Denies anxiety. Denies depression. ENDOCRINE: Denies fatigue. Denies weight change. Denies polydipsia. Denies polyurina. GENITOURINARY: Denies burning, hematuria or urgency with micturation. HEMATOLOGIC: Denies history of anemia. Denies bleeding. Blood pressure 99/63 heart rate 58 afebrile maintaining oxygen saturation on room air GENERAL: This is a 57-year-old occasions female in no apparent distress at the time of my examination. Obese. HEENT: Head is atraumatic, normocephalic. Pupils are equal, round. Sclerae anicteric. Conjunctivae are clear. Mucous membranes of the mouth are moist. Neck is supple. There is no jugular venous distention. No carotid bruit is heard. LUNGS: Clear to auscultation no wheezes, rales or rhonchi. No chest wall tenderness is noted on palpation or with deep breathing. HEART: Regular rate and rhythm without murmurs, rubs or gallops. S1 and S2 heard. ABDOMEN: Soft, nontender. Bowel sounds are heard. No organomegaly noted. EXTREMITIES: No evidence of peripheral edema and no calf tenderness noted. VASCULAR: Radial and dorsalis pedis pulses palpated, no evidence of clubbing. NEUROLOGIC: Patient is awake, alert and oriented x3. ASSESSMENT Chest pain, atypical, Dyslipidemia History of gastric bypass surgery 2017 Obesity, BMI 34 PLAN An acute coronary event has been ruled out with no EKG evidence of ischemia and negative cardiac enzymes. Obtain 2D echocardiogram and doppler study to assess cardiac structure and function. Perform dobutamine stress echocardiogram and doppler study to assess cardiac structure and function. If stress test is normal she is stable from a cardiac perspective. Follow up with Dr. Bustillo in 2-3 weeks. Thank you kindly for this consultation. Nurse Practitioner note has been reviewed, I agree with a documented findings and plan of care. Patient was seen and examined. Past Medical History Past Medical History: Asthma, Chest Pain / Angina, COPD, Deep Vein Thrombosis ( DVT), GERD/Reflux, Hearing Disorder / Deafness, Hyperlipidemia, Osteoarthritis ( OA), Pneumonia, Pulmonary Embolus (PE), Respiratory Disorder Additional Past Medical History / Comment(s): states "having difficulty swallowing",Chronic Bronchitis. NARCOLEPSY. "NERVE DAMAGE BACK DOWN TO KNEES, FALLS OCC," CHRONIC BACK PAIN. SCIATICA, MULTIPLE HX DVT, PE, [place] bilaterally. 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 Acosta; patient insisitent upon relying solely on OTC Thiamine tablets). History of Any Multi-Drug Resistant Organisms: None Reported Past Surgical History: Bariatric Surgery, Bladder Surgery, Section, Cholecystectomy, Hysterectomy, Orthopedic Surgery Additional Past Surgical History / Comment(s): 09/18/16 Panniculectomy, repair incarcerated ventral hernia, adjustment lap band, port revision. Other surgical hx: 2007 Lap Band; ORIF RT Ankle- PLATE, SCREWS. lap band removal 06-06-17 gastric bypass 09-08-17 Past Anesthesia/Blood Transfusion Reactions: No Reported Reaction Smoking Status: Current every day smoker - Past Family History Father History Unknown: Yes Family Medical History: Cancer Mother History Unknown: Yes Family Medical History: Cancer, Congestive Heart Failure (CHF), COPD Medications and Allergies Home Medications Medication Instructions Recorded Confirmed Type HYDROcodone/APAP 7.5-325MG [[place] 1 tab PO Q6HR PRN 09/16/18 09/16/18 History 7.5-325] Allergies Allergy/AdvReac Type Severity Reaction Status Date / Time No Known Allergies Allergy Verified 09/16/18 12:36 Physical Exam Vitals: Vital Signs Temp Pulse Pulse Resp BP BP Pulse Ox 09/17/18 07:35 97.5 F L 58 L 18 99/63 94 L 09/17/18 04:00 97.9 F 67 18 120/78 95 09/17/18 00:00 98.2 F 68 18 103/51 93 L 09/16/18 20:00 18 09/16/18 19:05 97 09/16/18 17:37 97.6 F 71 18 113/72 96 09/16/18 17:00 86 18 113/78 97 09/16/18 16:36 97.6 F 09/16/18 16:00 73 13 111/77 99 09/16/18 15:00 67 17 129/92 99 09/16/18 14:00 63 16 143/96 97 09/16/18 12:25 68 20 143/96 98 Intake and Output 09/16/18 09/17/18 09/17/18 22:59 06:59 14:59 Intake Total 620 178.667 Balance 620 178.667 Intake: Intake, IV Titration 178.667 Amount Heparin Sod,Pork in 0.45% 178.667 NaCl 25,000 unit In 0.45 % NaCl 1 500ml.bag @ 11. 024 UNITS/KG/HR 20 mls/hr IV .Q24H [facility] Rx#: [id number] Oral 620 Other: Voiding Method Toilet Toilet # Voids 1 Weight 89.9 kg Results 09/16/18 13:07 09/16/18 13:07 Cardiac Enzymes 09/16/18 09/16/18 09/16/18 Range/Units 13:07 13:07 18:12 AST 28 (14-36) U/L CK-MB (CK-2) 0.4 0.3 (0.0-2.4) ng/mL Troponin I <0.012 <0.012 (0.000-0.034) ng/mL 09/17/18 Range/Units 01:24 AST (14-36) U/L CK-MB (CK-2) 0.5 (0.0-2.4) ng/mL Troponin I <0.012 (0.000-0.034) ng/mL Coagulation 09/16/18 09/16/18 09/17/18 Range/Units 13:07 21:26 06:59 PT 9.8 (9.0-12.0) sec APTT 22.5 22.8 24.5 (22.0-30.0) sec Lipids 09/17/18 Range/Units 06:59 Triglycerides 118 (<150) mg/dL Cholesterol 210 H (<200) mg/dL HDL Cholesterol 63 H (40-60) mg/dL CBC 09/16/18 Range/Units 13:07 WBC 6.0 (3.8-10.6) k/uL RBC 5.20 (3.80-5.40) m/uL Hgb 16.0 (11.4-16.0) gm/dL Hct 50.2 H (34.0-46.0) % Plt Count 218 (150-450) k/uL Comprehensive Metabolic Panel 09/16/18 Range/Units 13:07 Sodium 141 (137-145) mmol/L Potassium 4.8 (3.5-5.1) mmol/L Chloride 107 (98-107) mmol/L Carbon Dioxide 27 (22-30) mmol/L BUN 20 H (7-17) mg/dL Creatinine 0.68 (0.52-1.04) mg/dL Glucose 87 (74-99) mg/dL Calcium 9.9 (8.4-10.2) mg/dL AST 28 (14-36) U/L ALT 30 (9-52) U/L Alkaline Phosphatase 119 (38-126) U/L Total Protein 7.1 (6.3-8.2) g/dL Albumin 4.2 (3.5-5.0) g/dL Current Medications Generic Name Dose Route Start Last Admin Trade Name Freq PRN Reason Stop Dose Admin Hydrocodone Bitart/Acetaminophen 1 each 09/16/18 18:13 09/17/18 09:23 [place] 7.5-325 PO 1 each Q6HR PRN Administration Moderate Pain Aspirin 325 mg 09/17/18 09:00 09/17/18 09:22 Aspirin PO 325 mg DAILY BALTAZAR Administration Dobutamine HCl/Dextrose 500 mg 250 mls @ 26.97 mls/hr 09/17/18 09:52 / IV Solution IV 09/17/18 19:08 .Q9H17M ONE Protocol 10 MCG/KG/MIN Melatonin 5 mg 09/16/18 23:00 09/16/18 23:13 Melatonin PO 5 mg HS BALTAZAR Administration Nitroglycerin 0.4 mg 09/16/18 14:54 Nitrostat SUBLINGUAL Q5M PRN Chest Pain Intake and Output 09/16/18 09/17/18 09/17/18 22:59 06:59 14:59 Intake Total 620 178.667 Balance 620 178.667 Intake: Intake, IV Titration 178.667 Amount Heparin Sod,Pork in 0.45% 178.667 NaCl 25,000 unit In 0.45 % NaCl 1 500ml.bag @ 11. 024 UNITS/KG/HR 20 mls/hr IV .Q24H [facility] Rx#: [id number] Oral 620 Other: Voiding Method Toilet Toilet # Voids 1 Weight 89.9 kg 09/16/18 13:07 09/16/18 13:07
--- NOTE | 2018-09-19 03:33 | DS ---
DISCHARGE SUMMARY DATE OF ADMISSION: 09/16/18. DATE OF DISCHARGE: 09/17/2018. FINAL DIAGNOSES: 1. Anterior chest wall pain could be musculoskeletal. 2. Primary osteoarthritis. 3. Obesity, BMI 34. 4. Prior history of Daniel-en-Y gastric bypass surgery. Patient lost 100 pounds. 5. Chronic narcolepsy. 6. Chronic B12 deficiency. HOSPITAL COURSE: This patient presented with chest pain for 2 hours as heart was pounding. No arrhythmia was found. The patient did undergo dobutamine stress echocardiogram that was negative for ischemia. The patient is seen by Dr. Bustillo from Cardiology and okayed the patient to be discharged. 2D echo did show preserved LV function, no wall motion abnormality was reported and LDL did come back at 123. DISCHARGE MEDICATIONS: [place] 7.5 q.6h p.r.n. FOLLOW UP: Dr. Bustillo in 2 weeks. Follow up with her family doctor in [address] Pablo. The patient mostly does not take her medications. Copy to Dr. Pablo. MMODL / IJN: [id number] /
== END 2018-09-17 15:21 | disposition home or self-care (01) ==
LOC: EC 12:11 → 1SOBS 14:54
PROVIDERS: ADMIT Hospitalist; ATTEND Hospitalist
DX: R07.89 Other chest pain (principal); J44.9 Chronic obstructive pulmonary disease, unspecified; E78.5 Hyperlipidemia, unspecified; E53.8 Deficiency of other specified B group vitamins; F17.210 Nicotine dependence, cigarettes, uncomplicated; M19.91 Primary osteoarthritis, unspecified site; K21.9 Gastro-esophageal reflux disease without esophagitis; H91.90 Unspecified hearing loss, unspecified ear; G47.419 Narcolepsy without cataplexy; G89.29 Other chronic pain; M54.40 Lumbago with sciatica, unspecified side; F40.240 Claustrophobia; F41.9 Anxiety disorder, unspecified; Z98.84 Bariatric surgery status; Z68.34 Body mass index [BMI] 34.0-34.9, adult; E66.9 Obesity, unspecified; R42 Dizziness and giddiness; J90 Pleural effusion, not elsewhere classified; R13.10 Dysphagia, unspecified; Z86.711 Personal history of pulmonary embolism; Z87.01 Personal history of pneumonia (recurrent); Z86.718 Personal history of other venous thrombosis and embolism; Z90.49 Acquired absence of other specified parts of digestive tract; Z90.710 Acquired absence of both cervix and uterus; Z82.5 Family history of asthma and other chronic lower respiratory diseases; Z80.9 Family history of malignant neoplasm, unspecified; Z82.49 Family history of ischemic heart disease and other diseases of the circulatory system
CPT/HCPCS: 93005 ×2; 96366 ×3; 96372; 96376; 96365; 99291; 36415; 93306; 93351; 80061; 80053; 82550 ×2; 82553 ×2; 83735; 84484 ×2; 85025; 85610; 85730 ×2; 71046; G0378 ×2; J1250; J3105; J1644 ×2; J0461

== ENCOUNTER → 2022-04-02 | Outpatient (CLI) | payer MEDICARE ==
--- NOTE | 2022-04-02 10:05 | XR ---
Lumbar spine HISTORY: M51.37 Other intervertebral disc degeneration 3 views of the lumbar spine, comparison to prior exam 12/16/2010 The lap band has been removed, postop changes are noted to the stomach. Surgical clips are again note d in the right upper quadrant. There is a slight spinal curvature, multilevel spondylosis is present. Lumbar vertebral bodies show preserved height. Bone mineralization is reduced. There is intervertebr al vacuum disc phenomenon present at L2-3, L3-4. Sclerosis present in the posterior elements of the l umbar spine. Multilevel spondylosis is present. Atherosclerotic vascular calcifications present in th e aorta iliac distribution. IMPRESSION: Degenerative disc disease, facet arthropathy, possible spinal curvature, osteopenia
== END | disposition home or self-care (01) ==
LOC: RADXRMAIN 09:00
PROVIDERS: ATTEND Family Medicine
DX: M51.36 Other intervertebral disc degeneration, lumbar region (principal); M47.816 Spondylosis without myelopathy or radiculopathy, lumbar region
CPT/HCPCS: 72100

== ENCOUNTER → 2023-01-15 | Outpatient (CLI) | payer MEDICARE ==
--- NOTE | 2023-01-15 07:16 | CTL ---
EXAMINATION TYPE: CT Low Dose Lung DATE OF EXAM ORDERED: 01/15/2023 HISTORY: Long-term tobacco use. Lung cancer screening CT DLP: 113.[address] CTDI: 3.40 mGy Automated exposure control for dose reduction was used. SCREENING VISIT: Baseline. COMPARISON: CTA chest December 08, 2014 TECHNIQUE: Low dose computed tomography scan was performed through the chest at 1 mm thick sections a nd reconstructed images in multiple planes at 1 mm and [address] DIAGNOSTIC QUALITY: Satisfactory FINDINGS: LUNG NODULES: None. LUNGS: COPD: Severity: Mild Fibrosis: Severity: Mild to moderate linear scarring in the lung bases is redemonstrated greatest in the periphery. Mild right apical linear scarring. Lymph nodes: None Other findings: None RIGHT PLEURAL SPACE: Effusion: None Calcification: None Thickening: None Pneumothorax: None LEFT PLEURAL SPACE: Effusion: None Calcification: None Thickening: Stable mild pleural thickening left lung base Pneumothorax: None HEART: Heart Size: Normal Coronary Calcification: None Pericardial Effusion: None OTHER FINDINGS: Upper abdomen: Calcifications presumed calcified scarring from old lap band noted in the epigastric r egion. Cholecystectomy clips are seen. Bony thorax: S-shaped scoliosis on coronal images. Supraclavicular region: None Other: None IMPRESSION: Mild emphysematous change with mild to moderate scattered scarring. No suspicious new nod ules. CT LUNG RAD AND CT CHEST RECOMMENDATION: Lung-Rad 1 Negative: Continue annual screening with LDCT in 12 months. S Modifier (other clinically significant findings): None
== END | disposition home or self-care (01) ==
LOC: RADCTMAIN 05:35
PROVIDERS: ATTEND Family Medicine
DX: Z12.2 Encounter for screening for malignant neoplasm of respiratory organs (principal); J43.9 Emphysema, unspecified; F17.210 Nicotine dependence, cigarettes, uncomplicated; J98.4 Other disorders of lung
CPT/HCPCS: 71271

== ENCOUNTER → 2023-05-30 | Outpatient (CLI) | payer MEDICARE ==
--- NOTE | 2023-05-30 09:36 | XR ---
EXAMINATION TYPE: XR knee complete LT DATE OF EXAM: 05/30/2023 CLINICAL HISTORY: pain TECHNIQUE: Three views of the left knee are obtained. COMPARISON: None. FINDINGS: There is no acute fracture/dislocation. The tri-compartment joint spaces appear within no rmal limits. The overlying soft tissue appears unremarkable. IMPRESSION: There is no acute fracture or dislocation ICD 10 NO FRACTURE, INITIAL EVALUATION
== END | disposition home or self-care (01) ==
LOC: LABWHC1 08:52
PROVIDERS: ATTEND Family Medicine
DX: M25.562 Pain in left knee (principal)

== ENCOUNTER 2024-10-13 16:08 | Observation (INO) | payer MEDICARE ==
[2024-10-13] MEDS: NITROGLYCERIN OINT 1 INCH/GM PACKET TOPICAL STA (17:19)
[2024-10-13] MEDS: ASPIRIN 81 MG PO STA (17:19)
[2024-10-13 17:20] LABS: Anisocytosis Slight; Basophils # (A) 0.1 k/uL (0-0.2); Basophils % (A) 1 %; Eosinophils # (A) 0.3 k/uL (0-0.7); Eosinophils % (A) 3 %; HCT 39.5 % (34.0-46.0); HGB 12.5 gm/dL (11.4-16.0); Hypochromasia Slight; Lymphocytes # (A) 2.5 k/uL (1.0-4.8); Lymphocytes % (A) 30 %; MCH 27.4 pg (25.0-35.0); MCHC 31.7 g/dL (31.0-37.0); MCV 86.4 fL (80.0-100.0); Mean Platelet Volume 8.4; Monocytes # (A) 0.6 k/uL (0-1.0); Monocytes % (A) 8 %; Neutrophils # (A) 4.8 k/uL (1.3-7.7); Neutrophils % (A) 56 %; Platelet Count 252 k/uL (150-450); RBC 4.57 m/uL (3.80-5.40); WBC 8.5 k/uL (3.8-10.6)
[2024-10-13 17:37] LABS: ALT 17 U/L (4-34); AST 28 U/L (14-36); African American GFR (CKD) >90 (>60 ml/min/1.73 sqM); Albumin 4.7 g/dL (3.5-5.0); Alkaline Phosphatase 96 U/L (38-126); Anion Gap 4 mmol/L; Blood Urea Nitrogen 16 mg/dL (7-17); Calcium 9.8 mg/dL (8.4-10.2); Carbon Dioxide 27 mmol/L (22-30); Chloride 107 mmol/L (98-107); Glucose 87 mg/dL (74-99); Non-African American GFR(CKD) >90 (>60 ml/min/1.73 sqM); Potassium 4.6 mmol/L (3.5-5.1); Sodium 138 mmol/L (137-145); Total Bilirubin 0.4 mg/dL (0.2-1.3); Total Protein 7.3 g/dL (6.3-8.2)
[2024-10-13 17:39] LABS: INR 0.9 (<1.2); Prothrombin Time 10.2 sec (10.0-12.5)
--- NOTE | 2024-10-13 17:55 | XR ---
EXAMINATION TYPE: XR chest 2V DATE OF EXAM: 10/13/2024 5:25 PM COMPARISON: 09/16/2018 CLINICAL INDICATION: Female, 63 years old with history of Chest Pain, TECHNIQUE: XR chest 2V view(s) obtained. FINDINGS: The heart size is normal. The pulmonary vasculature is normal. Some scarring may be present at the right lung base. Posterior pleural effusion may be present. Find ings appear stable from comparison IMPRESSION: 1. Minimal posterior pleural effusion should be considered. 2. Acute pulmonary process not otherwise apparent. 3. Chronic appearing changes right lower lobe and left costophrenic angle [facility], , 10/13/2024 5:53 PM
--- NOTE | 2024-10-13 18:11 | ED ---
General Adult HPI - General Chief complaint: Chest Pain Stated complaint: chest pain Time Seen by Provider: 10/13/24 16:35 Source: patient, EMS, RN notes reviewed, old records reviewed Mode of arrival: EMS Limitations: no limitations - History of Present Illness Initial comments: This is a 63-year-old female who presents to the emergency department comp laining of chest pain. Patient states the pain radiates to her left shoulder. Patient states she is mildly short of breath but denies any diaphoretic episodes and denies nausea. Patient denies any headache. Patient has abdominal pain patient denies vomiting or diarrhea. Patient denies any recent fever chills or cough. - Related Data Home Medications Medication Instructions Recorded Confirmed HYDROcodone/APAP 7.5-325MG [[place] 1 tab PO Q6HR PRN 09/16/18 09/16/18 7.5-325] Allergies Allergy/AdvReac Type Severity Reaction Status Date / Time No Known Allergies Allergy Verified 09/16/18 12:36 Review of Systems ROS Statement: Those systems with pertinent positive or pertinent negative responses have been documented in the HPI. ROS Other: All systems not noted in ROS Statement are negative. Past Medical History Past Medical History: Asthma, Chest Pain / Angina, COPD, Deep Vein Thrombosis (DVT), GERD/Reflux, Hearing Disorder / Deafness, Hyperlipidemia, Osteoarthritis (OA), Pneumonia, Pulmonary Embolus (PE), Respiratory Disorder Additional Past Medical History / Comment(s): states "having difficulty swallowing",Chronic Bronchitis. NARCOLEPSY. "NERVE DAMAGE BACK DOWN TO KNEES, FALLS OCC," CHRONIC BACK PAIN. SCIATICA, MULTIPLE HX DVT, PE, [place] bilaterally. 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 Acosta; patient insisitent upon relying solely on OTC Thiamine tablets). History of Any Multi-Drug Resistant Organisms: None Reported Past Surgical History: Bariatric Surgery, Bladder Surgery, Section, Cholecystectomy, Hysterectomy, Orthopedic Surgery Additional Past Surgical History / Comment(s): 09/18/16 Panniculectomy, repair incarcerated ventral hernia, adjustment lap band, port revision. Other surgical hx: 2007 Lap Band; ORIF RT Ankle- PLATE, SCREWS. lap band removal 06-06-17 gastric bypass 09-08-17 Past Anesthesia/Blood Transfusion Reactions: No Reported Reaction Past Psychological History: Anxiety Smoking Status: Current every day smoker Past Alcohol Use History: None Reported Past Drug Use History: None Reported - Past Family History Father History Unknown: Yes Family Medical History: Cancer Mother History Unknown: Yes Family Medical History: Cancer, Congestive Heart Failure (CHF), COPD General Exam - General Exam Comments Initial Comments: GENERAL: Patient is well-developed and well-nourished. Patient is nontoxic and well- hydrated and is in mild distress. ENT: Neck is soft and supple. No significant lymphadenopathy is noted. Oropharynx is clear. Moist mucous membranes. Neck has full range of motion without eliciting any pain. EYES: The sclera were anicteric and conjunctiva were pink and moist. Extraocular movements were intact and pupils were equal round and reactive to light. Eyelids were unremarkable. PULMONARY: Unlabored respirations. Good breath sounds bilaterally. No audible rales rhonchi or wheezing was noted. CARDIOVASCULAR: There is a regular rate and rhythm without any murmurs gallops or rubs. ABDOMEN: Soft and nontender with normal bowel sounds. SKIN: Skin is clear with no lesions or rashes and otherwise unremarkable. NEUROLOGIC: Patient is alert and oriented x3. Cranial nerves II through XII are grossly intact. Motor and sensory are also intact. Normal speech, volume and content. Symmetrical smile. MUSCULOSKELETAL: Normal extremities with adequate strength and full range of motion. LYMPHATICS: No significant lymphadenopathy is noted PSYCHIATRIC: Normal psychiatric evaluation. Limitations: no limitations Course Vital Signs 10/13/24 10/13/24 10/13/24 16:24 16:26 16:36 Temperature 98.2 F Pulse Rate 72 75 Pulse Rate [ 71 Travel Pta ] Respiratory 18 18 Rate Blood Pressure 123/64 123/64 O2 Sat by Pulse 98 98 Oximetry Medical Decision Making - Medical Decision Making EKG is interpreted by myself but EKG shows a sinus rhythm at 62 bpm NH interval 271 QRS is 90 QT interval is 411 QTc is 416. EKG shows no ST segment elevation Was pt. sent in by a medical professional or institution (, PA, SALES AND SERVICE ASSOCIATE, urgent care, hospital, or halfway...) When possible be specific @ -No Did you speak to anyone other than the patient for history (EMS, parent, family, police, friend...)? What history was obtained from this source @ -No Did you review nursing and triage notes (agree or disagree)? Why? @ -I reviewed and agree with nursing and triage notes Were old charts reviewed (outside hosp., previous admission, EMS record, old EKG, old radiological studies, urgent care reports/EKG's, halfway records)? Report findings @ -No old charts were reviewed Differential Diagnosis? @ -Differential Chest Pain: Stable Angina, Unstable Angina, STEMI, NSTEMI Aortic Dissection, Pneumothorax, Musculoskeletal, Esophageal Spasm GERD, Cholecystitis, Pancreatitis, Zoster, this is not meant to be an all-inclusive list. EKG interpreted by me (3pts min.). @ -As above X-rays interpreted by me (1pt min.). @ -Chest x-ray shows no acute abnormality CT interpreted by me (1pt min.). @ -None done U/S interpreted by me (1pt. min.). @ -None done What testing was considered but not performed or refused? (CT, X-rays, U/S, labs)? Why? @ -None What meds were considered but not given or refused? Why? @ -None Did you discuss the management of the patient with other professionals (professionals i.e. , PA, SALES AND SERVICE ASSOCIATE, lab, RT, psych nurse, geriatric social work professor, wharf laborer, teacher, property officer, case aide)? Give summary @ -I spoke with [facility] hospitalist they agreed to admit the patient admit the patient I wrote admitting orders Was smoking cessation discussed for >3mins.? @ -No Was critical care preformed (if so, how long)? @ -No Were there social determinants of health that impacted care today? How? (Homelessness, low income, unemployed, alcoholism, drug addiction, thomas sportation, low edu. Level, literacy, decrease access to med. care, shelter, rehab)? @ -No Was there de-escalation of care discussed even if they declined (Discuss DNR or withdrawal of care, Hospice)? DNR status @ -No What co-morbidities impacted this encounter? (DM, HTN, Smoking, COPD, CAD, Cancer, CVA, ARF, Chemo, Hep., AIDS, mental health diagnosis, sleep apnea, morbid obesity)? @ -None Was patient admitted / discharged? Hospital course, mention meds given and route, prescriptions, significant lab abnormalities, going to OR and other pertinent info. @ -I spoke with [facility] hospitalist agreed to admit the patient. I went back into reevaluate the patient she was chest pain-free at that time. Patient was in agreement with stand. Undiagnosed new problem with uncertain prognosis? @ -No Drug Therapy requiring intensive monitoring for toxicity (Heparin, Nitro, Insulin, Cardizem)? @ -No Were any procedures done? @ -No Diagnosis/symptom? @ -Chest pain Acute, or Chronic, or Acute on Chronic? @ -Acute Uncomplicated (without systemic symptoms) or Complicated (systemic symptoms)? @ -Complicated Side effects of treatment? @ -No Exacerbation, Progression, or Severe Exacerbation? @ -No Poses a threat to life or bodily function? How? (Chest pain, [place], [place], pneumonia, PE, COPD, DKA, ARF, appy, cholecystitis, CVA, Diverticulitis, Homicidal, Suicidal, threat to staff... and all critical care pts) @ -Yes this could lead to a heart attack and endorgan dysfunction - Lab Data Result diagrams: 10/13/24 17:07 10/13/24 17:07 Lab Results 10/13/24 10/13/24 10/13/24 Range/Units 17:07 17:07 17:07 WBC 8.5 (3.8-10.6) k/uL RBC 4.57 (3.80-5.40) m/uL Hgb 12.5 (11.4-16.0) gm/dL Hct 39.5 (34.0-46.0) % MCV 86.4 (80.0-100.0) fL MCH 27.4 (25.0-35.0) pg MCHC 31.7 (31.0-37.0) g/dL RDW 16.0 H (11.5-15.5) % Plt Count 252 (150-450) k/uL MPV 8.4 Neutrophils % 56 % Lymphocytes % 30 % Monocytes % 8 % Eosinophils % 3 % Basophils % 1 % Neutrophils # 4.8 (1.3-7.7) k/uL Lymphocytes # 2.5 (1.0-4.8) k/uL Monocytes # 0.6 (0-1.0) k/uL Eosinophils # 0.3 (0-0.7) k/uL Basophils # 0.1 (0-0.2) k/uL Hypochromasia Slight Anisocytosis Slight PT 10.2 (10.0-12.5) sec INR 0.9 (<1.2) APTT 22.0 (22.0-30.0) sec Sodium 138 (137-145) mmol/L Potassium 4.6 (3.5-5.1) mmol/L Chloride 107 (98-107) mmol/L Carbon Dioxide 27 (22-30) mmol/L Anion Gap 4 mmol/L BUN 16 (7-17) mg/dL Creatinine 0.69 (0.52-1.04) mg/dL Est GFR (CKD-EPI)AfAm >90 (>60 ml/min/1.73 sqM) Est GFR (CKD-EPI)NonAf >90 (>60 ml/min/1.73 sqM) Glucose 87 (74-99) mg/dL Calcium 9.8 (8.4-10.2) mg/dL Magnesium 2.0 (1.6-2.3) mg/dL Total Bilirubin 0.4 (0.2-1.3) mg/dL AST 28 (14-36) U/L ALT 17 (4-34) U/L Alkaline Phosphatase 96 (38-126) U/L Troponin I (0.000-0.034) ng/mL Total Protein 7.3 (6.3-8.2) g/dL Albumin 4.7 (3.5-5.0) g/dL 10/13/24 Range/Units 17:07 WBC (3.8-10.6) k/uL RBC (3.80-5.40) m/uL Hgb (11.4-16.0) gm/dL Hct (34.0-46.0) % MCV (80.0-100.0) fL MCH (25.0-35.0) pg MCHC (31.0-37.0) g/dL RDW (11.5-15.5) % Plt Count (150-450) k/uL MPV Neutrophils % % Lymphocytes % % Monocytes % % Eosinophils % % Basophils % % Neutrophils # (1.3-7.7) k/uL Lymphocytes # (1.0-4.8) k/uL Monocytes # (0-1.0) k/uL Eosinophils # (0-0.7) k/uL Basophils # (0-0.2) k/uL Hypochromasia Anisocytosis PT (10.0-12.5) sec INR (<1.2) APTT (22.0-30.0) sec Sodium (137-145) mmol/L Potassium (3.5-5.1) mmol/L Chloride (98-107) mmol/L Carbon Dioxide (22-30) mmol/L Anion Gap mmol/L BUN (7-17) mg/dL Creatinine (0.52-1.04) mg/dL Est GFR (CKD-EPI)AfAm (>60 ml/min/1.73 sqM) Est GFR (CKD-EPI)NonAf (>60 ml/min/1.73 sqM) Glucose (74-99) mg/dL Calcium (8.4-10.2) mg/dL Magnesium (1.6-2.3) mg/dL Total Bilirubin (0.2-1.3) mg/dL AST (14-36) U/L ALT (4-34) U/L Alkaline Phosphatase (38-126) U/L Troponin I <0.012 (0.000-0.034) ng/mL Total Protein (6.3-8.2) g/dL Albumin (3.5-5.0) g/dL Disposition Clinical Impression: Chest pain Disposition: ADMITTED IP TO THIS [facility] Referrals: Francesco Pablo DO [Primary Care Provider] - 1-2 days Time of Disposition: 18:15
[2024-10-13] MEDS ORDERED: NITROGLYCERIN SL TABS 0.4 MG TAB SUBLINGUAL PRN (18:15)
[2024-10-13] MEDS ORDERED: MECLIZINE 25 MG TAB PO PRN (20:02)
[2024-10-13] MEDS: HYDROcodone/APAP 7.5-325MG 1 EACH TAB PO ONE (21:11)
[2024-10-13] MEDS: traZODone HCL 50 MG TAB PO SCH (22:17)
[2024-10-13] MEDS: ATORVASTATIN 40 MG TAB PO SCH (22:17)
[2024-10-13] MEDS: NITROGLYCERIN OINT 1 INCH/GM PACKET TOPICAL SCH (23:56)
[2024-10-14] MEDS: HYDROcodone/APAP 7.5-325MG 1 EACH TAB PO PRN (03:03)
[2024-10-14 03:42] VITALS: TEMP 97.8
[2024-10-14] MEDS: ASPIRIN 325 MG TAB PO SCH (08:00)
[2024-10-14] MEDS: PANTOPRAZOLE 40 MG TABLET PO SCH (08:00)
[2024-10-14] MEDS: allopurinoL 100 MG TAB PO SCH (08:01)
[2024-10-14 09:16] VITALS: RESP 16
[2024-10-14 09:27] LABS: Chol/HDL Ratio 2.12 Ratio; LDL Cholesterol,Calculated 66.4 mg/dL (0.0-131.0)
[2024-10-14] MEDS ORDERED: DOBUTamine DRIP for NUC MED 500 MG in DEXTROSE/WATER 1 250ML.BAG IV PRN (09:42)
--- NOTE | 2024-10-14 10:40 | P.HPIM ---
History of Present Illness This is a pleasant 63 years old female with past medical history as below. She is also hard of hearing. Patient says she came because of chest pain which started yesterday on the left side radiating up little bit felt like sharp with no obvious precipitating or relieving factor. Patient does not feel really short of breath no coughing. No specific GI/ symptoms. Walking normal She smokes 2 cigarettes/day and she was counseled to quit and she agrees but she declines nicotine patch. No alcohol or illicit drugs. However patient states that she has history of blood clot all over without specification and this has been going on but for the last 3 5 years ago about her doctor stopped her blood thinner because he told her she does not need anymore. She is afebrile Labs unremarkable including CBC, BMP, LFT, INR. Troponin x 3 are negative less than 0.012. EKG showing sinus rhythm at [address]-T changes Chest x-ray is negative for acute process but showing chronic appearing changes of the right lower lobe and left costophrenic angle but no acute changes per radiologist. Review of Systems Review of systems CONSTITUTIONAL: No fever, no malaise, no fatigue. HEENT: No recent visual problems or hearing problems. Denied any sore throat. CARDIOVASCULAR: No orthopnea, PND, no palpitations, no syncope. PULMONARY: No shortness of breath, no cough, no hemoptysis. GASTROINTESTINAL: No diarrhea, no nausea, no vomiting, no abdominal pain. Normoactive bowel sounds. NEUROLOGICAL: No headaches, no weakness, no numbness. HEMATOLOGICAL: Denies any bleeding or petechiae. GENITOURINARY: Denies any burning micturition, frequency, or urgency. MUSCULOSKELETAL/RHEUMATOLOGICAL: Denies any joint pain, swelling, or any muscle pain. ENDOCRINE: Denies any polyuria or polydipsia. Past Medical History Past Medical History: Asthma, Chest Pain / Angina, COPD, Deep Vein Thrombosis (DVT), GERD/Reflux, Hearing Disorder / Deafness, Hyperlipidemia, Osteoarthritis (OA), Pneumonia, Pulmonary Embolus (PE), Respiratory Disorder Additional Past Medical History / Comment(s): states "having difficulty swallowing",Chronic Bronchitis. NARCOLEPSY. "NERVE DAMAGE BACK DOWN TO KNEES, FALLS OCC," CHRONIC BACK PAIN. SCIATICA, MULTIPLE HX DVT, PE, [place] bilaterally. 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 Acosta; patient insisitent upon relying solely on OTC Thiamine tablets). History of Any Multi-Drug Resistant Organisms: None Reported Past Surgical History: Bariatric Surgery, Bladder Surgery, Section, Cholecystectomy, Hysterectomy, Orthopedic Surgery Additional Past Surgical History / Comment(s): 09/18/16 Panniculectomy, repair incarcerated ventral hernia, adjustment lap band, port revision. Other surgical hx: 2007 Lap Band; ORIF RT Ankle- PLATE, SCREWS. lap band removal 06-06-17 gastric bypass 09-08-17 Past Anesthesia/Blood Transfusion Reactions: No Reported Reaction Past Psychological History: Anxiety Additional Psychological History / Comment(s): clausterphobia. Smoking Status: Current every day smoker Past Alcohol Use History: None Reported Additional Past Alcohol Use History / Comment(s): started smoking at age 13 has smoked off and on and currently a pack will last 3 days, used to smoke 2 ppd 2PPD Past Drug Use History: None Reported - Past Family History Father History Unknown: Yes Family Medical History: Cancer Mother History Unknown: Yes Family Medical History: Cancer, Congestive Heart Failure (CHF), COPD Medications and Allergies Home Medications Medication Instructions Recorded Confirmed Type HYDROcodone/APAP 7.5-325MG [[place] 1 tab PO Q6HR PRN 09/16/18 10/13/24 History 7.5-325] Atorvastatin [Lipitor] 40 mg PO HS 10/13/24 10/13/24 History Meclizine [Antivert] 25 mg PO TID PRN 10/13/24 10/13/24 History Pantoprazole [Protonix] 40 mg PO DAILY 10/13/24 10/13/24 History allopurinoL [Zyloprim] 100 mg PO DAILY 10/13/24 10/13/24 History rOPINIRole HCL [Requip] 0.25 mg PO HS 10/13/24 10/13/24 History traZODone HCL [Desyrel] 50 mg PO HS 10/13/24 10/13/24 History Allergies Allergy/AdvReac Type Severity Reaction Status Date / Time No Known Allergies Allergy Verified 10/13/24 18:51 Physical Exam Vitals: Vital Signs Temp Pulse Pulse Pulse Resp BP BP 12/12/24 07:00 63 16 110/62 10/14/24 02:00 97.8 F 70 20 112/66 10/14/24 00:00 20 10/13/24 23:47 98.1 F 66 119/75 10/13/24 23:00 98.0 F 63 18 103/58 10/13/24 22:19 98.2 F 64 18 110/50 10/13/24 19:32 98.1 F 77 18 120/60 10/13/24 18:45 97.4 F L 57 L 18 112/65 10/13/24 16:36 75 18 123/64 10/13/24 16:26 71 10/13/24 16:24 98.2 F 72 18 123/64 Pulse Ox 10/14/24 07:00 93 L 10/14/24 02:00 98 10/14/24 00:00 10/13/24 23:47 94 L 10/13/24 23:00 98 10/13/24 22:19 93 L 10/13/24 19:32 93 L 10/13/24 18:45 95 10/13/24 16:36 98 10/13/24 16:26 10/13/24 16:24 98 Intake and Output 10/13/24 10/14/24 10/14/24 22:59 06:59 14:59 Intake Total 230 Balance 230 Intake: IV 30 Invasive Line 1 30 Oral 200 Other: Voiding Method Toilet # Voids 2 Weight 79.379 kg 79.379 kg GENERAL: The patient is alert and oriented x3, not in any acute distress. Well developed, well nourished. HEENT: Pupils are round and equally reacting to light. EOMI. No scleral icterus. No conjunctival pallor. Normocephalic, atraumatic. No pharyngeal erythema. No thyromegaly. CARDIOVASCULAR: S1 and S2 present. No murmurs, rubs, or gallops. PULMONARY: Chest is clear to auscultation, no wheezing , no crackles. ABDOMEN: Soft, nontender, nondistended, normoactive bowel sounds. No palpable organomegaly. MUSCULOSKELETAL: No joint swelling or deformity. EXTREMITIES: No cyanosis, clubbing, or pedal edema. NEUROLOGICAL: Gross neurological examination did not reveal any focal deficits. SKIN: No rashes. no petechiae. Results CBC & Chem 7: 10/13/24 17:07 10/13/24 17:07 Labs: Abnormal Lab Results - Last 24 Hours (Table) 10/13/24 10/13/24 Range/Units 17:07 17:07 RDW 16.0 H (11.5-15.5) % HDL Cholesterol 80.60 H (40.00-60.00) mg/dL Thrombosis Risk Factor Assmnt - Choose All That Apply Any of the Below Risk Factors Present?: No Other Risk Factors: Yes Each Risk Factor Represents 2 Points: Age 61-74 years Other congenital or acquired thrombophilia - If yes, enter type in comment: No Thrombosis Risk Factor Assessment Total Risk Factor Score: 2 Thrombosis Risk Factor Assessment Level: Low Risk Assessment and Plan Assessment: Chest pain, rule out cardiac causes. Rule out PE Patient has history of blood clots about 3 to 5 years ago she states that she stopped taking blood thinner by her doctor a while ago. Given her chest pain we need to rule out PE. Hard of hearing Migraine headache Plan: Cardiology evaluation Telemetry monitoring History of blood clotting disease therefore we going to check D-dimer if positive will do CTA of the chest with pulmonary embolism protocol. Patient explained the risk of nephrotoxicity and possible GFR possible damage in details and she verbalized understanding and acceptance Start normal saline at 75 mL/h Pain management Labs and medication were reviewed.. Continue same treatment. Continue with symptomatic treatment. Resume home medication. Monitor labs and vitals. DVT and GI prophylaxis. Further recommendations as per clinical course of the patient DVT prophylaxis: Subcutaneous heparin GI Prophylaxis: Pepcid PT/OT: Pending Prognosis is guarded
--- NOTE | 2024-10-14 11:39 | P.CRDCN ---
History of Present Illness Consult date: 10/14/24 Consult reason: chest pain History of present illness: This is a 63-year-old female patient with past medical history of hyperlipidemia, gastroesophageal reflux disease, tobacco use and dependence. We have been asked to evaluate the patient for chest pain. Patient complains of left-sided chest pain that she describes as tightness that comes and goes. Sometimes it goes all the way around her chest. Pain does not seem to be related to activity and not related to exertion. No fever or chills, no cough. Patient continues to smoke but states she is down to just 1 cigarette a day. Blood pressure 110/62, heart rate 63, pulse ox 93% on room air. -EKG: Sinus rhythm with nonspecific ST changes -Chest x-ray: Minimal posterior pleural effusion should be considered. Acute pulmonary process not otherwise apparent. Chronic appearing changes right lower lobe and left costophrenic angle. -Laboratory studies: WBC 8.5, hemoglobin 12.5. Electrolytes and renal function are normal. Troponin negative x 3. Triglycerides 120, cholesterol 171, LDL 66. -Home cardiac medications: Atorvastatin 40 mg at bedtime. -Dobutamine stress echocardiogram performed in 2018 revealed normal EKG and response to dobutamine, normal echocardiogram and response to dobutamine, essentially normal dobutamine stress echo. -Echocardiogram performed in 2018 revealed EF of 55 to 60%, mild concentric left ventricular hypertrophy, trace mitral regurgitation. Review Of Systems: At the time of my exam: CONSTITUTIONAL: Denies fever or chills. HEENT: Denies blurred vision, vision changes, or eye pain. Denies hemoptysis CARDIOVASCULAR: Denies chest pain. Denies orthopnea. Denies PND. Denies palpitations RESPIRATORY: Denies shortness of breath. GASTROINTESTINAL: Denies abdominal pain. Denies nausea or vomiting. HEMATOLOGIC: Denies bleeding disorders. GENITOURINARY: Denies any blood in urine. SKIN: Denies puritis. Denies rash. Physical examination: Gen: This is a 63-year-old female in no acute distress VS: reviewed HEENT: Head is atraumatic, normocephalic. Pupils equal, round. Sclerae is anicteric. NECK: Supple. No JVD. LUNGS: Bilateral breath sounds. No intercostal retractions. HEART: Regular rate and rhythm. No murmur. ABDOMEN: Soft No tenderness. EXTREMITIES: No pedal edema. No calf tenderness. Diminished dorsalis pedis bilaterally. NEUROLOGICAL: Patient is awake, alert and oriented x3. Assessment: Atypical chest pain, acute coronary syndrome ruled out Hyperlipidemia Gastroesophageal reflux disease Tobacco use and dependence Suspected PAD with diminished peripheral pulses Plan: Resume patient's home cardiac medications Discontinue Nitropaste N.p.o. status Schedule patient for dobutamine stress echocardiogram today Obtain 2-D echocardiogram and Doppler study to assess cardiac structure and function If testing is unremarkable, patient is cleared for discharge from cardiology. Smoking cessation. Patient will be provided the [place] quit line information at discharge. Thank you kindly for this consultation. Nurse practitioner note has been reviewed, I agree with documented findings and plan of care. Patient was seen and examined. Past Medical History Past Medical History: Asthma, Chest Pain / Angina, COPD, Deep Vein Thrombosis (DVT), GERD/Reflux, Hearing Disorder / Deafness, Hyperlipidemia, Osteoarthritis (OA), Pneumonia, Pulmonary Embolus (PE), Respiratory Disorder Additional Past Medical History / Comment(s): states "having difficulty swallowi ng",Chronic Bronchitis. NARCOLEPSY. "NERVE DAMAGE BACK DOWN TO KNEES, FALLS OCC," CHRONIC BACK PAIN. SCIATICA, MULTIPLE HX DVT, PE, [place] bilaterally. 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 Acosta; patient insisitent upon relying solely on OTC Thiamine tablets). History of Any Multi-Drug Resistant Organisms: None Reported Past Surgical History: Bariatric Surgery, Bladder Surgery, Section, Cho lecystectomy, Hysterectomy, Orthopedic Surgery Additional Past Surgical History / Comment(s): 09/18/16 Panniculectomy, repair incarcerated ventral hernia, adjustment lap band, port revision. Other surgical hx: 2007 Lap Band; ORIF RT Ankle- PLATE, SCREWS. lap band removal 06-06-17 gastric bypass 09-08-17 Past Anesthesia/Blood Transfusion Reactions: No Reported Reaction Past Psychological History: Anxiety Additional Psychological History / Comment(s): clausterphobia. Smoking Status: Current every day smoker Past Alcohol Use History: None Reported Additional Past Alcohol Use History / Comment(s): started smoking at age 13 has smoked off and on and currently a pack will last 3 days, used to smoke 2 ppd 2PPD Past Drug Use History: None Reported - Past Family History Father History Unknown: Yes Family Medical History: Cancer Mother History Unknown: Yes Family Medical History: Cancer, Congestive Heart Failure (CHF), COPD Medications and Allergies Home Medications Medication Instructions Recorded Confirmed Type HYDROcodone/APAP 7.5-325MG [[place] 1 tab PO Q6HR PRN 09/16/18 10/13/24 History 7.5-325] Atorvastatin [Lipitor] 40 mg PO HS 10/13/24 10/13/24 History Meclizine [Antivert] 25 mg PO TID PRN 10/13/24 10/13/24 History Pantoprazole [Protonix] 40 mg PO DAILY 10/13/24 10/13/24 History allopurinoL [Zyloprim] 100 mg PO DAILY 10/13/24 10/13/24 History rOPINIRole HCL [Requip] 0.25 mg PO HS 10/13/24 10/13/24 History traZODone HCL [Desyrel] 50 mg PO HS 10/13/24 10/13/24 History Allergies Allergy/AdvReac Type Severity Reaction Status Date / Time No Known Allergies Allergy Verified 10/13/24 18:51 Physical Exam Vitals: Vital Signs Temp Pulse Pulse Pulse Resp BP BP 10/14/24 07:00 63 16 110/62 10/14/24 02:00 97.8 F 70 20 112/66 10/14/24 00:00 20 10/13/24 23:47 98.1 F 66 119/75 10/13/24 23:00 98.0 F 63 18 103/58 10/13/24 22:19 98.2 F 64 18 110/50 10/13/24 19:32 98.1 F 77 18 120/60 10/13/24 18:45 97.4 F L 57 L 18 112/65 10/13/24 16:36 75 18 123/64 10/13/24 16:26 71 10/13/24 16:24 98.2 F 72 18 123/64 Pulse Ox 10/14/24 07:00 93 L 10/14/24 02:00 98 10/14/24 00:00 10/13/24 23:47 94 L 10/13/24 23:00 98 10/13/24 22:19 93 L 10/13/24 19:32 93 L 10/13/24 18:45 95 10/13/24 16:36 98 10/13/24 16:26 10/13/24 16:24 98 Intake and Output 10/13/24 10/14/24 10/14/24 22:59 06:59 14:59 Intake Total 230 Balance 230 Intake: IV 30 Invasive Line 1 30 Oral 200 Other: Voiding Method Toilet # Voids 2 Weight 79.379 kg 79.379 kg Results 10/13/24 17:07 10/13/24 17:07 Cardiac Enzymes 10/13/24 10/13/24 10/13/24 Range/Units 17:07 17:07 19:52 AST 28 (14-36) U/L Troponin I <0.012 <0.012 (0.000-0.034) ng/mL 10/14/24 Range/Units 00:40 AST (14-36) U/L Troponin I <0.012 (0.000-0.034) ng/mL Coagulation 10/13/24 Range/Units 17:07 PT 10.2 (10.0-12.5) sec APTT 22.0 (22.0-30.0) sec Lipids 10/13/24 Range/Units 17:07 Triglycerides 120.00 (0.00-149.00) mg/dL Cholesterol 171.00 (0.00-200.00) mg/dL HDL Cholesterol 80.60 H (40.00-60.00) mg/dL Cholesterol/HDL Ratio 2.12 Ratio CBC 10/13/24 Range/Units 17:07 WBC 8.5 (3.8-10.6) k/uL RBC 4.57 (3.80-5.40) m/uL Hgb 12.5 (11.4-16.0) gm/dL Hct 39.5 (34.0-46.0) % Plt Count 252 (150-450) k/uL Comprehensive Metabolic Panel 10/13/24 Range/Units 17:07 Sodium 138 (137-145) mmol/L Potassium 4.6 (3.5-5.1) mmol/L Chloride 107 (98-107) mmol/L Carbon Dioxide 27 (22-30) mmol/L BUN 16 (7-17) mg/dL Creatinine 0.69 (0.52-1.04) mg/dL Glucose 87 (74-99) mg/dL Calcium 9.8 (8.4-10.2) mg/dL AST 28 (14-36) U/L ALT 17 (4-34) U/L Alkaline Phosphatase 96 (38-126) U/L Total Protein 7.3 (6.3-8.2) g/dL Albumin 4.7 (3.5-5.0) g/dL Current Medications Generic Name Dose Route Start Last Admin Trade Name Freq PRN Reason Stop Dose Admin Hydrocodone Bitart/Acetaminophen 1 each 10/13/24 20:02 10/14/24 09:28 Hydrocodone/Apap 7.5-325mg 1 Each Tab PO 1 each Q6HR PRN Administration Pain Allopurinol 100 mg 10/14/24 09:00 10/14/24 08:01 Allopurinol 100 Mg Tab PO 100 mg DAILY BALTAZAR Administration Aspirin 325 mg 10/14/24 09:00 10/14/24 08:00 Aspirin 325 Mg Tab PO 325 mg DAILY BALTAZAR Administration Atorvastatin Calcium 40 mg 10/13/24 21:00 10/13/24 22:17 Atorvastatin 40 Mg Tab PO 40 mg HS BALTAZAR Administration Meclizine HCl 25 mg 10/13/24 20:02 Meclizine 25 Mg Tab PO TID PRN Vertigo Nitroglycerin 0.4 mg 10/13/24 18:15 Nitroglycerin Sl Tabs 0.4 Mg Tab SUBLINGUAL Q5M PRN Chest Pain Nitroglycerin 1 inch 10/14/24 00:00 10/14/24 06:21 Nitroglycerin Oint 1 Inch/Gm Packet TOPICAL 1 inch Q6HR BALTAZAR Administration Pantoprazole Sodium 40 mg 10/14/24 09:00 10/14/24 08:00 Pantoprazole 40 Mg Tablet PO 40 mg DAILY BALTAZAR Administration Ropinirole HCl 0.25 mg 10/13/24 21:00 10/13/24 22:17 Ropinirole Hcl 0.25 Mg Tab PO 0.25 mg HS BALTAZAR Administration Trazodone HCl 50 mg 10/13/24 21:00 10/13/24 22:17 Trazodone Hcl 50 Mg Tab PO 50 mg HS BALTAZAR Administration Intake and Output 10/13/24 10/14/24 10/14/24 22:59 06:59 14:59 Intake Total 230 Balance 230 Intake: IV 30 Invasive Line 1 30 Oral 200 Other: Voiding Method Toilet # Voids 2 Weight 79.379 kg 79.379 kg 10/13/24 17:07 10/13/24 17:07
[2024-10-14] MEDS ORDERED: BUTALB/APAP/CAFF 50-325-40MG TAB PO STA (13:41)
[2024-10-14] MEDS ORDERED: BUTALB/APAP/CAFF 50-325-40MG TAB PO PRN (13:41)
[2024-10-14] MEDS: SODIUM CHLORIDE 0.9% 1,000 ML IV SCH (14:04)
[2024-10-14 14:11] VITALS: BP 116/66; PULSE 69
[2024-10-15] MEDS ORDERED: ASPIRIN 81 MG PO SCH (09:00)
--- NOTE | 2024-10-15 09:56 | CA ---
Dobutamine Stress Echocardiogram Report Paula Mandel Age: 63 Gender: F : 1960 Exam Date: 10/14/2024 12:37 Exam Location: [facility] Ordering Physician: Zara Shay Referring Physician: Laurita BLACKMON [employer] Property Manager: Mariel Coley RDCS Technologist: Ht (in): 64 Wt (lb): 175 Procedure CPT: Indication: Chest Pain ICD-9 Codes: Rhythm: Patient History: CHEST PAIN, NUMBNESS IN FACE/NECK, PRIOR CVA, HYPERCHOLESTEROLEMIA, CURRENT SMOKER, COPD, ASTHMA, EMPHYSEMA, Cardiac Medications: Medications in past 24 hours: Contrast: N/A Total Dose (mL): Stress Results Protocol: Dobutamine Peak Dose (???g/kg/min): 40 Duration (min:sec): Atropine:(mg) Target HR: 135 Double Product: [id number] Resting HR: 63 Resting BP: 128 / 71 Peak HR: 138 Peak BP: 131 / 46 Max Predicted HR: 159 87 % Max Predicted HR Stress Summary: BP Response: Reason for Termination: Target HR Cardiac Symptoms: NO SYMPTOMS ECG Analysis Resting EKG: Stress EKG: Arrhythmia: Echo Analysis Base Echo Analysis: Low Echo Anaylsis: Peak Echo Analysis: Recovery Echo: MEASUREMENTS (Male/Female) Normal Values CONCLUSIONS Baseline EKG revealed a normal sinus rhythm without significant ST and T-wave changes. With the dobutamine administration the heart rate went up to 136 bpm which is more than 85% of predicted maximal. Patient had no symptoms EKG was unremarkable. By EKG criteria this is a unremarkable dobutamine stress test Baseline echo images revealed normal wall motion wall thickening. With dobutamine administration that was progressive increase in contractility of all segments suggesting that there is no evidence of dobutamine-induced ischemia. Final impression: This is a unremarkable dobutamine stress test by EKG criteria. The dobutamine echo does not suggest any ischemia. Dr. Madison Elkins MD (Electronically Signed) Final Date: 15 October 2024 09:56
--- NOTE | 2024-10-15 10:17 | CA ---
Transthoracic Echo Report Name: Paula Mandel Age: 63 Gender: F : 1960 Exam Date: 10/14/2024 12:59 Exam Location: [facility] Ht (in): 64 Wt (lb): 175 Ordering Physician: Zara Shay Attending/Referring Phys: [id number], Laurita [employer] Farmworker Mariel Coley, YOLI Procedure CPT: Indications: LVF Cardiac Hx: Technical Quality: Fair Contrast 1: Total Dose (mL): Contrast 2: Total Dose (mL): MEASUREMENTS (Male / Female) Normal Values 2D ECHO LV Diastolic Diameter PLAX 4.5 cm 4.2 - 5.9 / 3.9 - 5.3 cm LV Systolic Diameter PLAX 3.0 cm IVS Diastolic Thickness 1.1 cm 0.6 - 1.0 / 0.6 - 0.9 cm LVPW Diastolic Thickness 1.1 cm 0.6 - 1.0 / 0.6 - 0.9 cm LV Relative Wall Thickness 0.5 RV Internal Dim ED PLAX 2.2 cm LA Systolic Diameter LX 3.3 cm 3.0 - 4.0 / 2.7 - 3.8 cm LV Diastolic Volume MOD BP 80.0 cm??? 67 - 155 / 56 - 104 cm??? LV Systolic Volume MOD BP 34.9 cm??? - / 19 - 49 cm??? LV Ejection Fraction MOD BP 56.4 % >= 55 % LV Cardiac Index MOD BP 1831.9 cm???/min???m??? LV Diastolic Volume MOD 4C 88.1 cm??? LV Systolic Volume MOD 4C 34.2 cm??? LV Ejection Fraction MOD 4C 61.2 % LV Cardiac Index MOD 4C 2194.0 cm???/min???m??? LV Diastolic Length 4C 7.4 cm LV Systolic Length 4C 6.4 cm LV Diastolic Volume MOD 2C 71.2 cm??? LV Systolic Volume MOD 2C 34.8 cm??? LV Ejection Fraction MOD 2C 51.1 % LV Cardiac Index MOD 2C 1479.9 cm???/min???m??? LV Diastolic Length 2C 7.2 cm LV Systolic Length 2C 6.6 cm LA Volume 49.4 cm??? 18 - 58 / 22 - 52 cm??? LA Volume Index 25.7 cm???/m??? 16 - 28 cm???/m??? M-MODE Aortic Root Diameter MM 3.0 cm LA Systolic Diameter MM 3.6 cm LA Ao Ratio MM 1.2 AV Cusp Separation MM 1.6 cm DOPPLER MV Area PHT 2.4 cm??? Mitral E Point Velocity 77.2 cm/s Mitral A Point Velocity 89.6 cm/s Mitral E to A Ratio 0.9 MV Deceleration Time 318.6 ms TR Peak Velocity 221.1 cm/s TR Peak Gradient 19.5 mmHg Right Ventricular Systolic Press 24.5 mmHg FINDINGS Left Ventricle Left ventricular ejection fraction is estimated at 55-60%. Mildly increased septal wall thickness. Mildly increased posterior wall thickness. Normal left ventricular systolic function with no obvious regional wall motion abnormalities. Right Ventricle Normal right ventricular size and function. Right ventricular systolic pressure within normal limits. Right Atrium Normal right atrial size. Left Atrium Normal left atrial size. Mitral Valve Structurally normal mitral valve. Trace to mild mitral regurgitation. No mitral stenosis. Aortic Valve Trileaflet aortic valve. No aortic valve stenosis or regurgitation. Tricuspid Valve Structurally normal tricuspid valve. Trace to mild tricuspid regurgitation. No tricuspid stenosis. Pulmonic Valve Structurally normal pulmonic valve. No pulmonic stenosis. Trace pulmonic regurgitation. Pericardium No pericardial or pleural effusion. Aorta Normal size aortic root and proximal ascending aorta. CONCLUSIONS Normal LV size and systolic function. No significant abnormality on the Doppler exam. No pericardial effusion Previewed by: Dr. Madison Elkins MD (Electronically Signed) Final Date: 15 October 2024 10:16
== END 2024-10-14 14:42 | disposition home or self-care (01) ==
LOC: EC 16:08 → 6NMEDSUR 18:15 → 1SOBS 20:18 → 6NMEDSUR 10-14 13:53
PROVIDERS: ADMIT Hospitalist; ATTEND Hospitalist
DX: R07.89 Other chest pain (principal); J44.9 Chronic obstructive pulmonary disease, unspecified; K21.9 Gastro-esophageal reflux disease without esophagitis; E78.5 Hyperlipidemia, unspecified; F41.9 Anxiety disorder, unspecified; H91.90 Unspecified hearing loss, unspecified ear; G43.909 Migraine, unspecified, not intractable, without status migrainosus; F17.210 Nicotine dependence, cigarettes, uncomplicated; Z86.711 Personal history of pulmonary embolism; Z86.718 Personal history of other venous thrombosis and embolism; Z79.899 Other long term (current) drug therapy
CPT/HCPCS: 99285; 36415; 93005; 93306; 93351; 85379; 80061; 80053; 83735; 84484 ×2; 85025; 85610; 85730; 71046; G0378 ×2